=== PATIENT | male | born 1950 | race Caucasian/White ===

== ENCOUNTER 2021-11-22 09:37 | Emergency (ER) | payer MEDICARE, SELFPAY ==
[2021-11-22 09:41] VITALS: BP 163/82; PULSE 83; RESP 18; TEMP 36.5; O2SAT 97
--- NOTE | 2021-11-22 09:45 | DI.RAD_ITS ---
Exam(s) XR ANKLE RT COMPLETE EXAM: XR ANKLE RT COMPLETE CLINICAL HISTORY: Deformity, Fall TECHNIQUE: COMPARISON: No exams were available for comparison FINDINGS: Three views were obtained. There is a fracture of the distal fibula with moderate displacement. The re is marked widening of the ankle mortise medially. Questionable lucencies are projected through th e posterior tibia, posterior malleolar fracture not excluded. IMPRESSION: Fracture dislocation as described above with a displaced fracture of the distal fibula, distal tibial fracture not excluded. RADIATION DOSE DELIVERED: Total DLP
--- NOTE | 2021-11-22 09:48 | W.ED.GENAD ---
Discharge Plan Disposition Patient Disposition: [facility] DAY SURGERY UNIT Condition: Stable Discharge Details Clinical Impression: Closed fracture dislocation of right ankle Primary Care Provider: Unknown,Unknown ED Provider: Juana Sánchez Home Meds and New Rx's Prescriptions: No Action metformin 1,000 mg Tablet 1,000 mg PO BID RF: 0 Discharge Instructions Instructions: Ankle Fracture (ED), Splint Care (ED) Additional Instructions: Please follow-up with orthopedics within the next week as instructed. Keep your leg elevated, rest ice compression elevation. Do not place any weight on the splint. Do not get the splint wet. If you have any numbness tingling or cool toes you may loosen the Yonatan wrap but do not take the splint off. Please take Tylenol or Ibuprofen with food every 4-6 hours as needed for pain and swelling. Referrals: Sj Us MD [ [facility] STAFF PHYSICIAN] - 1 week Medical Decision Making 71-year-old male presents to the ER with chief complaint of right ankle injury. Patient reports he was walking downhill outside of his house this morning and slipped on the ice fell. He was able to crawl to his truck to pull himself into the truck and drive to his friend's house. He denies any loss of consciousness no neck or back pain. He did hit the back of his head mildly. He has no other complaint time. Does have obvious deformity noted to his right ankle and his foot is turned outward. Small abrasion noted to the medial malleolus. XR ankle, Percocet and Zofran ordered EXAM: XR ANKLE RT COMPLETE CLINICAL HISTORY: Deformity, Fall TECHNIQUE: COMPARISON: No exams were available for comparison FINDINGS: Three views were obtained. There is a fracture of the distal fibula with moderate displacement. There is marked widening of the ankle mortise medially. Questionable lucencies are projected through the posterior tibia, posterior malleolar fracture not excluded. IMPRESSION: Fracture dislocation as described above with a displaced fracture of the distal fibula, distal tibial fracture not excluded. 1013: Ortho paged. 1022: Spoke with Dr. Esdras Evangelista regarding patient he recommends reduction in the OR. He recommends Covid test. IV ordered. Discussed plan with patient who verbalizes understanding and is in agreement with the plan. He last ate last night around 7 PM. He did take his a.m. medications this morning but did not eat or drink anything. Instructed on NPO status. 1339: Spoke with Dr. Nguyen who is here at [facility] for Patient eval. He is willing to reduce ankle here at BS. 1400: Dr. Us and his physician sugar laboratory assistant at bedside for ankle reduction. Patient received 50 mcg of fentanyl IV tolerated procedure well. Posterior long leg and stirrup plaster splint applied. Post reduction x-ray ordered. 1424: Dr. Us ok's patient to be discharged. He was able to view the postreduction x-rays prior to discharge. He requests BMP and HA1C Prior to DC. BMP and hemoglobin A1c ordered. BMP within normal limits except for glucose 56 hemoglobin A1c is 9.4. Patient given crutches discharged with nonweightbearing status and instructions for RICE procedures. Instructed to take Tylenol or ibuprofen and follow-up with Ortho within the next week. Ortho contact information given. Splint care also discussed with patient. HPI General Mode of arrival: wheelchair. Date/Time Provider Initiated Documentation: 11/22/21 09:43. Limitations to Documentation: no limitations. Information obtained by: patient and RN notes reviewed. HPI Narrative: 71-year-old male presents to the ER with chief complaint of right ankle injury. Patient reports he was walking downhill outside of his house this morning and slipped on the ice fell. He was able to crawl to his truck to pull himself into the truck and drive to his friend's house. He denies any loss of consciousness no neck or back pain. He did hit the back of his head mildly. He has no other complaint time. Does have obvious deformity noted to his right ankle and his foot is turned outward. Small abrasion noted to the medial malleolus. Related Data Home Medications Medication Instructions Recorded Confirmed metformin 1,000 mg PO BID 11/22/21 11/22/21 Allergies Allergy/AdvReac Type Severity Reaction Status Date / Time No Known Allergies Allergy Unverified 11/22/21 09:50 General Stated Complaint: Orthopedic NIA: 3 Review of Systems All systems reviewed & are unremarkable except as noted in HPI and below ENT Ears, Nose, Mouth, and Throat: Denies neck pain Musculoskeletal Musculoskeletal: Reports deformity (Right ankle), Reports arthralgias, Reports joint swelling and Denies neck pain PFSH All Active Problems (Updated 11/22/21 @ 10:40 by Juana Sánchez) Closed fracture dislocation of right ankle (Acute) Social History Smoking/Tobacco Use Status: Never Smoking risk assessment performed?: Yes Alcohol Intake: never Drug use: Never Substance use type: does not use Do you feel safe at home: Yes Do you feel safe in your relationship?: Yes Exam Narrative Exam Narrative: General: Well Developed, Awake and Alert, conversant. Skin: Warm and Dry HEENT: Head: No palpable deformities, Normocephalic Eyes: Pupils PERRLA, EOM's intact. No periorbital eccymosis or step off Ears: Canal patent. Tympanic membranes are clear . No elizondo's sign, no hemptympanum. Nose/Face: Atraumatic. Facial bones nontender to palpation and stable with manipulation. Mouth/Throat: No intraoral trauma. Teeth and mandible are intact. Neck: No midline tenderness, no step off, no deformity to palpation of C-spine. Trachea midline. Chest: No surface trauma. Nontender without crepitus or deformity. Lungs clear to ausculatation bilaterally. Heart: RRR, no rubs, murmurs or gallop. Abdomen: No abrasions, ecchymosis, or surface trauma. Nondistended. Nontender to palpation no guarding, rebound, or rigidity. Pelvis: Nontender to palpation and stable to compression. Femoral pulses strong and equal Extremities: See below, obvious deformity noted to the right ankle, does have an abrasion noted to the medial malleolus, patient does have peripheral neuropathy and has decreased sensation. Neuro: ANO x4, GCS 15, cranial nerves II through XII intact. Motor and sensory exam nonfocal. Reflexes are symmetric. Extrem Right lower extremity: ankle Details: abnormal to inspection (Obvious deformity), tenderness and swelling Course Vital Signs Vital signs: Vital Signs Temperature 36.5 C 11/22/21 09:41 Pulse 83 11/22/21 09:41 Respiratory Rate 18 11/22/21 09:41 Blood Pressure 163/82 H 11/22/21 09:41 Pulse Oximetry 97 11/22/21 09:41 Temperature 36.5 C 11/22/21 09:41 Temperature Source Temporal Artery Scan 11/22/21 09:41 Pulse 83 11/22/21 09:41 Respiratory Rate 18 11/22/21 09:41 Blood Pressure 163/82 H 11/22/21 09:41 Blood Pressure Position Sitting 11/22/21 09:41 Pulse Oximetry 97 11/22/21 09:41 Oxygen Delivery Method Room Air 11/22/21 09:41 Oxygen Flow Rate 0 11/22/21 09:41 Pain Level 6 11/22/21 09:46 Procedures Orthopedic Splinting/Casting Injury #1: Side: right Lower Extremity Injury Location: ankle Lower Extremity Immobilizer: posterior splint (Long leg and stirrup plaster splint), stirrup splint, Raman dressing (Webroll applied) and Yonatan wrap
[2021-11-22] MEDS: Ondansetron O.D.T. 4 MG TABEF PO (10:05)
[2021-11-22] MEDS: oxyCODONE 5 mg/Acetaminophen 325 mg TAB 1 TAB PO (10:05)
[2021-11-22 10:33] LABS: Source Nasal/Nares
[2021-11-22 10:48] VITALS: BP 142/72; PULSE 73; RESP 16; TEMP 36.9; O2SAT 98
[2021-11-22 11:36] LABS: COVID-19 PCR Negative (Negative)
[2021-11-22] MEDS: Ibuprofen 800 MG TAB PO (13:01)
[2021-11-22] MEDS: fentaNYL 100 MCG/2 ML VIAL IVP (13:46)
--- NOTE | 2021-11-22 14:00 | DI.RAD_ITS ---
Exam(s) XR ANKLE RT 2V EXAM: XR ANKLE RT 2V CLINICAL HISTORY: post reduction, portable TECHNIQUE: COMPARISON: CR XR ANKLE RT COMPLETE from 11/22/2021 FINDINGS: Two views were obtained. The ankle is in a splint. There is improved reduction of the fracture frag ments of distal fibula in comparison with examination obtained earlier today. The degree of displace ment of the ankle mortise is also decreased. IMPRESSION: RADIATION DOSE DELIVERED: Total DLP
[2021-11-22 14:43] LABS: Anion Gap 9.5 mmol/L (3-11); BUN 14 mg/dL (7-18); CO2 24.5 mmol/L (21.0-32.0); CREATININE 0.9 mg/dL (0.70-1.30); Calcium 8.8 mg/dL (8.5-10.1); Chloride 106 mmol/L (98-107); Glucose 156 mg/dL (74-106); Potassium 4.5 mmol/L (3.5-5.1); Sodium 140 mmol/L (136-145)
[2021-11-22 14:48] LABS: Hemoglobin A1C 9.4 % (<5.7)
[2021-11-22 14:59] VITALS: BP 137/76; PULSE 69; RESP 18; TEMP 36.5; O2SAT 95
--- NOTE | 2021-11-22 22:33 | OCONE_ITS ---
Date of service: 11/22/21 Time of Service: 13:41 History of Present Illness History of Present Illness Chief Complaint: Right Ankle Pain/Deformity Narrative: Vikas is a 71-year-old who presented to the emergency department after a slip and fall this morning. He was walking outside when he slipped and twisted his right leg. He had immediate pain and deformity and was unable to stand on the right side but he was able to crawl and get himself into a truck. He drove to a friend's house who then brought into the emergency department. He does report hitting the back of his head but denies any loss of consciousness. He denies any confusion. He denies any severe headache although he does report a very mild headache to me. He reports having diabetes and does have baseline numbness of his feet. He does not follow with his primary doctor very often. . Consults Consult date: 11/22/21 Requesting physician: Juana Sánchez Consult Reason Right Ankle Fracture Assessment and Plan Assessment and plan (1) Closed fracture dislocation of right ankle: Status: Acute Assessment and plan: Vikas is a 71-year-old who slipped and fell the day suffered an ankle fracture dislocation. The primary lateral malleolus fracture with gapping of the medial clear space indicating a syndesmotic injury with obvious deltoid rupture. Close reduction was performed with much improved positioning. He will require surgical stabilization. I reviewed this with him. Given the unstable nature of this fracture pattern surgery would be recommended. However, I am quite concerned about his poor diabetes control. His current A1c is over 9 which would put him at higher risk for wound healing complications and infection. I will reach out to his primary care team to see about initiation of other oral agents at this time. He is now in a well-padded splint with a much better position of his ankle joint and therefore we will await surgical fixation once swelling has subsided, at least 5 days. I will coordinate with him for surgical stabilization. He should remain nonweightbearing on the right leg. Qualifiers: Encounter type: initial encounter Qualified Code(s): S82.891A - Other fracture of right lower leg, initial encounter for closed fracture Review of Systems All systems reviewed & are unremarkable except as noted in HPI and below PFSH All Active Problems (Updated 11/22/21 @ 22:49 by Sj Us MD) Closed fracture dislocation of right ankle (Acute) Social History Smoking/Tobacco Use Status: Never Smoking risk assessment performed?: Yes Alcohol Intake: never Drug use: Never Substance use type: does not use Do you feel safe at home: Yes Do you feel safe in your relationship?: Yes Exam Narrative Exam Narrative: He is comfortable in the hospital stretcher. Head is normocephalic and atraumatic. He is in no acute distress. He is alert and or iented x3. Evaluation of the right leg shows a external rotation and slight valgus deformity of the right foot. There is a mild abrasion of the medial aspect of the ankle but there is no active drainage. No open injury. There is notable swelling about the ankle and the foot. He is able demonstrate some weak great toe extension flexion. He reports gross sensation but actually does not respond to painful stimuli about the midfoot distal. And he responds mildly over the ankle itself. Sensation seems to be diminished from around the level of the mid calf distal. Faintly palpable DP pulse. Capillary refill less than 3 seconds in the toes. Results Last Vital Signs Temp 36.5 C 11/22/21 14:59 Pulse 69 11/22/21 14:59 Resp 18 11/22/21 14:59 BP 137/76 11/22/21 14:59 Pulse Ox 95 11/22/21 14:59 Labs Result diagrams: 11/22/21 14:28 Labs: Laboratory Results - last 24 hr 11/22/21 11/22/21 11/22/21 10:27 14:28 14:28 Sodium 140 Potassium 4.5 Chloride 106 Carbon Dioxide 24.5 Anion Gap 9.5 BUN 14 Creatinine 0.9 Estimated GFR/1.73 m2 >= 60.00 Glucose 156 H Hemoglobin A1c 9.4 H Calcium 8.8 COVID-19 Source Nasal/Nares SARS-CoV-2 (PCR) Negative Imaging Imaging Studies: X-ray of the right ankle demonstrates a fibula fracture with obvious lateral displacement of the talus with opening of the medial tibiotalar joint as well as the syndesmotic, tibiofibular joint. No apparent medial or posterior injury is seen on these films. X-ray of the right ankle after close reduction shows interval improvement of the position of the talus. There does appear to be some fragmentation in the medial aspect of the ankle but 1 able to see any clear medial malleolar or posterior malleolar fracture fragment. Ankle positioning is much closer to being anatomic at this point with a concentric reduction on the lateral and slight lateral displacement on the AP.
== END 2021-11-22 14:57 | disposition short-term general hospital (02) ==
PROVIDERS: Emergency Provider Registered Nurse Emergency
DX: S82.61XA Displaced fracture of lateral malleolus of right fibula, initial encounter for closed fracture (principal); W00.0XXA Fall on same level due to ice and snow, initial encounter
CPT/HCPCS: 27788; 80048; 87635; 99283; 73600; 73610; 83036; J3010

== ENCOUNTER 2021-11-26 14:41 | Outpatient (CLI) | payer MEDICARE, SELFPAY ==
--- NOTE | 2021-11-26 14:30 | DI.RAD_ITS ---
Exam(s) XR ANKLE RT 2V EXAM: XR ANKLE RT 2V CLINICAL HISTORY: f/u R ankle 0pain. TECHNIQUE: 2D digital imaging was performed. COMPARISON: No exams were available for comparison FINDINGS: Displaced fracture distal fibula-with significant widening of the mortise. No obvious fracture media l malleolus. Talar dome appears IMPRESSION: DATA REPOSITORY: RADIATION DOSE DELIVERED:
--- NOTE | 2021-11-26 15:00 | DI.RAD_ITS ---
Exam(s) XR ANKLE RT 2V EXAM: XR ANKLE RT 2V CLINICAL HISTORY: f/u reduction of right ankle. TECHNIQUE: 2D digital imaging was performed. COMPARISON: CR XR ANKLE RT 2V from 11/22/2021 FINDINGS: Fracture distal fibula again to also fracture. Medial malleolus is intact. There is significant wid ening of the mortise, more so than previous. Talar dome appears unremarkable. IMPRESSION: DATA REPOSITORY: RADIATION DOSE DELIVERED:
[2021-11-26 15:35] LABS: Source Nasal/Nares
[2021-11-26 19:57] LABS: COVID-19 PCR Negative (Negative)
== END 2021-11-26 14:42 | disposition home or self-care (01) ==
PROVIDERS: PCP Family Medicine; Referring Provider Student in an Organized Health Care Education/Training Program; Visit Provider Student in an Organized Health Care Education/Training Program
DX: S82.831A Other fracture of upper and lower end of right fibula, initial encounter for closed fracture (principal); Z20.822 Contact with and (suspected) exposure to COVID-19; X58.XXXA Exposure to other specified factors, initial encounter; E11.9 Type 2 diabetes mellitus without complications
CPT/HCPCS: 87635; 99214; 73600

== ENCOUNTER 2021-11-26 16:33 | Outpatient (REF) | payer MEDICARE, SELFPAY | END 2021-11-26 16:34 | disposition home or self-care (01) | LOC: LBN 16:33 | PROVIDERS: PCP Family Medicine; Visit Provider Student in an Organized Health Care Education/Training Program ==

== ENCOUNTER 2021-11-27 09:50 | Day surgery (SDC) | payer MEDICARE, SELFPAY ==
[2021-11-27] VITALS (12 sets, daily range): BP systolic 126–168; BP diastolic 67–89; PULSE 66–88; RESP 11–18; TEMP 36–36.8; O2SAT 94–98; BMI 33.7
--- NOTE | 2021-11-27 08:35 | W.ANESPRE ---
General Info Date of Service Date Performed: 11/27/21 Height: 6 ft 1 in Weight: 116 kg Body Mass Index (BMI): 33.7 Surgical Procedure: Operation Date: 11/27/21 12:40 Proposed Procedures Side Surgeon p External Fixation of Rt Ankle Fx-Dislocation Right Sj Us MD Meds Allergies and Home Medications Allergies Allergy/AdvReac Type Severity Reaction Status Date / Time No Known Allergies Allergy Unverified 11/26/21 14:00 Home Medication Medication Instructions Recorded metformin 1,000 mg PO BID 11/22/21 oxycodone-acetaminophen [Percocet] 1 tab PO TID PRN #10 tab 11/23/21 acetaminophen 500 mg tablet 500 mg PO Q6H PRN #90 tab 11/26/21 celecoxib 200 mg capsule 200 mg PO BID #60 cap 11/26/21 oxycodone 5 mg tablet 5 mg PO Q4H PRN #16 tab MDD 30mg 11/26/21 glipizide 10 mg PO DAILY 11/27/21 PFSH Active Problems Active Problems: Problem Status Onset Code Closed fracture dislocation of right ankle S82.891A Medical History Medical History (Updated 11/27/21 @ 10:49 by Oksana Maza) History of COVID-19 Hx of diabetes mellitus Surgical History Surgical History (Updated 11/27/21 @ 10:49 by Oksana Maza) Hx of eye surgery right eye trauma; blindness at present Hx of knee surgery left Hx of shoulder surgery left Tobacco Smoking/Tobacco Use Status: Never Alcohol Alcohol Intake: never Substance Use Substance use: Never Substance use type: does not use Vital Signs and Lab Results Lab Results Blood Type / Crossmatch: No Data to Display Complete Blood Count: No Data to Display Complete Metabolic Panel: Sodium Level 140 mmol/L (136-145) 11/22/21 14:28 11/22/21 Potassium Level 4.5 mmol/L (3.5-5.1) 11/22/21 14:28 11/22/21 Chloride Level 106 mmol/L (98-107) 11/22/21 14:28 11/22/21 Carbon Dioxide Level 24.5 mmol/L (21.0-32.0) 11/22/21 14:28 11/22/21 Blood Urea Nitrogen 14 mg/dL (7-18) 11/22/21 14:28 11/22/21 Creatinine 0.9 mg/dL (0.70-1.30) 11/22/21 14:28 11/22/21 Estimated GFR/1.73 m2 >= 60.00 (mL/min/1.73m2) 11/22/21 14:28 11/22/21 Calcium Level 8.8 mg/dL (8.5-10.1) 11/22/21 14:28 11/22/21 Glucose Level 156 mg/dL (74-106) H 11/22/21 14:28 11/22/21 Hemoglobin A1c 9.4 % (<5.7) H 11/22/21 14:28 11/22/21 Liver Function Panel: No Data to Display Coagulation Panel: No Data to Display Cardiac Panel: No Data to Display Arterial Blood Gas: No Data to Display Venous Blood Gas: No Data to Display Pancreas Panel: No Data to Display Thyroid Panel: No Data to Display Infectious Disease: Coronavirus (COVID-19)(PCR) Negative (Negative) 11/26/21 15:15 11/26/21 Coronavirus 2019 Source Nasal/Nares 11/26/21 15:15 11/26/21 Blood Cultures: No Data to Display Toxicology Panel: No Data to Display Anesthesia Assessment and Plan Anesthesia History Personal History: No History of Anesthesia Complications Family History: No Family History of Anesthesia Complications Exercise Tolerance Exercise Tolerance: Metabolic Equivalents>4 Pertinent Negatives Pertinent Negatives: No Symptoms of GERD, No Major Cardiovascular Symptoms or Complaints, No Major Pulmonary Symptoms or Complaints and No History of CVA/TIA Cardiac & Pulmonary Exam Cardiac Exam: Normal S1/S2 Heart Sounds Pulmonary Exam: Clear Bilateral Breath Sounds Implantable Cardiac Device Does patient have a Pacemaker or an ICD?: No Airway Exam Known Difficult Airway: No Mallampati Class: 3 Mouth Opening: Normal (> 3cm) Thyromental Distance: Greater than 3 cm Neck Range of Motion: Full ROM Neck Circumference: Normal Teeth Condition: Generalized Poor Dentition and Loose or Chipped ASA Classification ASA Score: ASA 3 Emergency Case?: No NPO Status NPO Status: NPO Clears >2 hours, Solids >8 hours Anesthesia Plan Resuscitation Status: Full Code Anesthesia Technique: Spinal Anesthesia Airway Planned: Natural Airway Pain Management: Surgeon and patient request nerve block (Adductor and popliteal) Monitors Used: Standard Monitors
--- NOTE | 2021-11-27 10:07 | W.PM.DSUDISC ---
Discharge Plan Disposition Patient Disposition: HOME Condition: Good Discharge Details Reason For Visit: right ankle fracture dislocation Attending Provider: Sj Us Primary Care Provider: Andre Howell Home Meds and New Rx's Prescriptions: No Action celecoxib 200 mg capsule 200 mg PO BID Qty: 60 RF: 0 oxycodone 5 mg tablet 5 mg PO Q4H MDD 30mg PRN (Reason: pain) Qty: 16 RF: 0 acetaminophen 500 mg tablet 500 mg PO Q6H PRN (Reason: fever) Qty: 90 RF: 0 metformin 1,000 mg Tablet 1,000 mg PO BID RF: 0 oxycodone-acetaminophen [Percocet] 5-325 mg tablet 1 tab PO TID PRN (Reason: pain, moderate) Qty: 10 RF: 0 Discharge Instructions Additional Instructions: Ankle ORIF Discharge Instructions Activity: You are NON WEIGHT BEARING. You should keep the leg elevated as much as possible. You may wiggle your toes and move your hip and knee. Dressings: You should keep your splint clean and dry. Do NOT get wet or dirty. If you have issues with your splint, please call the office at [phone] or the hospital after hours. Medications: - You should take Tylenol and Ibuprofen around the clock for baseline pain. - You have been prescribed a stronger narcotic for breakthrough pain. - You should take a Baby Aspirin (81mg) twice a day for blood clot prevention. Follow-up: 2 weeks Referrals: Sj Us MD [ [facility] STAFF PHYSICIAN] - Equipment/Supplies: Walker Activity:: Elevate Remove Dressings/Wound Care:: Do Not Remove Shower/Bathe:: Cover Diet:: As Tolerated Discharge Orders Discharge Orders: Discharge Order (Routine); Ordered 11/27/21 Ordered By: Johana Amaya DS: Diagnosis Discharge Diagnosis (1) Closed fracture dislocation of right ankle: Status: Acute
[2021-11-27] MEDS: Celecoxib 200 MG CAP 400 MG PO (10:27)
[2021-11-27] MEDS: Acetaminophen 500 MG TAB 1000 MG PO (10:27)
[2021-11-27] MEDS: Gabapentin 300 MG CAP PO (10:27)
[2021-11-27] MEDS: Lactated Ringers 1,000 ML 80 ML IV (10:35)
--- NOTE | 2021-11-27 11:15 | DI.RAD_ITS ---
Exam(s) XR ANKLE RT COMPLETE EXAM: XR ANKLE RT COMPLETE CLINICAL HISTORY: right ankle fracture TECHNIQUE: 2D and realtime digital imaging was performed. CONTRAST MATERIAL: Refer to procedure report. COMPARISON: CR XR ANKLE RT 2V from 11/26/2021 FINDINGS: Fluoroscopy was provided for Dr. Us during the performance of a external fixation of the right ankle fracture dislocation. Please refer to the procedure report for complete details. Ka,r=2.92 mGy IMPRESSION: RADIATION DOSE DELIVERED:
--- NOTE | 2021-11-27 11:37 | W.ANESNERVE ---
Nerve Block Single Injection Procedure Date and Time Date Performed: 11/27/21 Procedure Start: 11:02 Location Where Procedure Performed Procedure Location: Day Surgery Unit Reason Performed: Postoperative Analgesia Requesting Provider: Sj Us Timeout Performed Timeout Performed: Yes Monitoring Used ECG, Blood Pressure and SpO2 Sterility Sterility: Hand Hygiene, Surgical Cap, Surgical Mask, Sterile Gloves and Chlorhexidine Sedation Given During Procedure Sedation Given (Indicate Dose Given): No Sedation given and Ketamine IV Dose:: 20 mg Patient Mental Status Patient Mental Status: Sedate with meaningful communication Nerve Block 1st Nerve Block: Laterality: Right Block Type: Adductor Canal Needle / Catheter Used: 100mm SonoPlex II Local Anesthetic Bolus (Indicate Dose Given): Lidocaine used for local infiltration of skin, Injected in 3-5ml increments after negative blood aspiration, Bupivacaine 0.5% Dose:: 7 ml and Exparel Dose:: 7 ml Additives (Indicate Dose Given): Normal Saline Ultrasound: Sterile probe cover and gel used Ultrasound Image Saved?: Yes Nerve Stimulator: Not Used Paresthesia: None Procedure Tolerated: No Complications Procedure Outcome: Successful Performed By: Andre Amin 2nd Nerve Block: Laterality: Right Block Type: Popliteal Sciatic Needle / Catheter Used: 100mm SonoPlex II Local Anesthetic Bolus (Indicate Dose Given): Lidocaine used for local infiltration of skin, Injected in 3-5ml increments after negative blood aspiration, Bupivacaine 0.5% Dose:: 15 ml and Exparel Dose:: 13 ml Additives (Indicate Dose Given): None Ultrasound: Sterile probe cover and gel used Ultrasound Image Saved?: Yes Nerve Stimulator: Not Used Paresthesia: Right Paresthesia Duration: Transient Procedure Tolerated: No Complications and Patient tolerated well Procedure Outcome: Successful Performed By: Andre Amin
[2021-11-27] MEDS: ceFAZolin 2 GM/50 ML BAG IVPB (12:00)
[2021-11-27] MEDS: Bupivacaine 0.25% Pres-Free 30 ML VIAL (12:21)
--- NOTE | 2021-11-27 13:36 | W.PM.DSUDISC ---
Discharge Plan Disposition Patient Disposition: HOME Condition: Good Discharge Details Reason For Visit: right ankle fracture dislocation Attending Provider: Sj Us Primary Care Provider: Andre Howell Home Meds and New Rx's Prescriptions: New aspirin 81 mg tablet,delayed release (DR/EC) 81 mg PO BID Qty: 60 RF: 0 Continued celecoxib 200 mg capsule 200 mg PO BID Qty: 60 RF: 0 oxycodone 5 mg tablet 5 mg PO Q4H MDD 30mg PRN (Reason: pain) Qty: 16 RF: 0 acetaminophen 500 mg tablet 500 mg PO Q6H PRN (Reason: fever) Qty: 90 RF: 0 metformin 1,000 mg Tablet 1,000 mg PO BID RF: 0 oxycodone-acetaminophen [Percocet] 5-325 mg tablet 1 tab PO TID PRN (Reason: pain, moderate) Qty: 10 RF: 0 glipizide 10 mg tablet extended release 24hr 10 mg PO DAILY RF: 0 Discharge Instructions Additional Instructions: Ankle ORIF Discharge Instructions Activity: You are NON WEIGHT BEARING. You should keep the leg elevated as much as possible. You may wiggle your toes and move your hip and knee. You may rest the foot on the ground for balance but avoid putting weight on the leg. Use the walker to assist with your mobility. Dressings: You should keep your splint and dressing clean and dry. Do NOT get wet or dirty. If you have issues with your splint, please call the office at [phone] or the hospital after hours. No dressing changes are necessary. Medications: - You should take Tylenol and Ibuprofen around the clock for baseline pain. - You have been prescribed a stronger narcotic for breakthrough pain. - You should take a Baby Aspirin (81mg) twice a day for blood clot prevention. Follow-up: 10 days. Likely return to the OR in 2 weeks for definitive fixation. Referrals: Sj Us MD [ [facility] STAFF PHYSICIAN] - Equipment/Supplies: Walker Activity:: Elevate Remove Dressings/Wound Care:: Do Not Remove Shower/Bathe:: Cover Diet:: Carb Counting Discharge Orders Discharge Orders: Discharge Order (Routine); Ordered 11/27/21 Ordered By: Johana Amaya DS: Diagnosis Discharge Diagnosis (1) Closed fracture dislocation of right ankle: Status: Acute
--- NOTE | 2021-11-27 15:21 | W.ANESPOSTOP ---
Postoperative Evaluation Date, Time and Location Date Performed: 11/27/21 Time Performed: 15:21 Patient Location: Day Surgery Unit Vital Signs Most Recent Imported Vital Signs: Most Recent Vital Signs Temp Pulse Resp BP Pulse Ox 36 C L 66 16 128/77 96 11/27/21 14:45 11/27/21 14:45 11/27/21 14:45 11/27/21 14:45 11/27/21 14:45 Pain Score Most Recent Pain Score: Most Recent Pain Score Pain Level 0 11/27/21 14:45 Assessment Mental Status: Awake (Alert & Oriented to Patient Baseline) Airway and Respiratory Function: Patent airway with normal (patient baseline) respiratory exam Cardiovascular Function: Hemodynamically Stable Hydration Status: Adequately Hydrated Nausea & Vomiting: No Nausea or Vomiting Pain: Pt. Denies Any Pain Peripheral Nerve Block: Regional nerve block not resolved at time of post operative discharge
--- NOTE | 2021-11-27 22:24 | W.PM.OP ---
Date of service: 11/27/21 Time of Service: 13:37 Operative Note Operative Note DATE OF PROCEDURE: 11/27/21 PRE-OP DIAGNOSIS: Right Ankle Fracture Dislocation POST-OP DIAGNOSIS: same PROCEDURE: External Fixation of the Right Ankle Fracture-Dislocation SURGEON: Sj Us ASSISTING SURGEON: Johana Amaya ANESTHESIA TYPE: General LMA/ETT and Primary Nerve Block Refer to Anesthesia Record ESTIMATED BLOOD LOSS: 5 PATHOLOGY: none sent TOURNIQUET TIME: 0 COMPLICATIONS: None Patient was transported to: PACU Patient's condition: stable Implants: Synthes Large External Fixator Indications: Vikas is a 71-year-old who suffered an ankle fracture dislocation of his right side. He was closed reduced in the emergency department and splinted. Unfortunate, he showed up to the office after walking on the ankle with recurrent dislocation. He was reduced once again in the office but with slight pressure on the transfer to the x-ray table he once again subluxed his talus. He has severe diabetes with peripheral neuropathy and very minimal protective sensation therefore I recommended proceeding with external fixation of the right ankle fracture dislocation. I discussed this technique with him. This would be a stabilizing procedure to maintain reduction and allow the tissue envelope to settle before definitive fixation. I discussed the risk of the procedure to include bleeding, infection, pain, stiffness, loss of reduction, pin site infection, damage to nerves and vessels, blood clot, need for repeat procedures. Findings: There was a comminuted fracture of the distal fibula with significant instability. Reduction was obtained but increasingly difficult to maintain. Manipulation of the foot with the external fixator was required to hold reduction. Reduction was obtained and held with a delta frame. Procedure Description: Vikas was greeted the preoperative holding area. His identity was confirmed the correct site was identified and marked. The consent was reviewed the patient and signed. Peripheral nerve blockade was performed anesthesia under ultrasound guidance. He was then taken to the operating room. He was placed in supine position with the right leg on a bone foam ramp. The splint in the right leg was removed and there was notable thinning of the medial skin where the medial malleolus was prominent subcutaneously. There is no defect in the skin but there was an area of thinning with subjacent fracture blisters. Prophylactic antibiotics was administered in the form of cefazolin. The right leg was then prepped with ChloraPrep and draped in a standard fashion. A timeout was performed for safe surgery. I did reduction maneuver was performed and could be obtained while holding the foot. However, it was grossly unstable and would not stay without major manipulation of the foot and ankle. The skin was notably swollen without wrinkles and with various levels of ecchymosis. Attention was then turned to placement of the external fixator. Starting in the proximal tibia placed to Schanz pins from the external fixator system. The first pin was placed just medial to the crest of the tibia perpendicular to the floor predrilling the course of the pin. First pin was advanced into both cortices. Using the bracket as a guide I placed a second pin in a similar fashion. Once both pins were in place a lateral x-ray was obtained to make sure they are of appropriate depth penetrating past that second cortex for optimal fixation. With these in position I then attached the bracket to the 2 tibial pins. Attention was then turned to the calcaneus pin. A lateral x-ray was used to identify the appropriate position. A small incision was made in the skin blunt dissection was carried down to the border of the calcaneus. The calcaneal pin was then driven across on power through the calcaneus and out the other side, incising the skin on his way out. This was once again confirmed to be in good position both visually and with x-ray. I then placed 2 long external fixator bars on each side creating a delta frame type construct. These were manually tightened but still loose. A reduction maneuver was then performed and the bars were tightened. X-ray was obtained which showed significant improvement with reduction but still some slight lateral tilt and translation. Therefore, I minimally loosened the clamps and adjusted the external fixator for better AP alignment. This was then tightened and once again x-ray was utilized to confirm appropriate reduction. All junctions were tightened fully. All of the pins were capped with plastic protection devices. A mixture of 1.5% lidocaine with epinephrine with 0.25% bupivacaine was injected around the pin sites. Xeroform was placed around the pin sites as well as over the medial skin with a fracture blister. The pin sites were dressed with gauze followed by Kerlix. Web roll cotton padding was placed around the foot and the heel to prevent any pressure sores. A posterior slab splint was then applied keeping the foot in a neutral position. At the end the case all counts were correct. Vikas tolerated the procedure well. He was awakened from anesthesia and transferred to the PACU in stable condition. He will remain nonweightbearing on the right leg but may place on the ground for balance to prevent falling and to assist with mobilization throughout his home. I would like to see him back another 10 days for skin evaluation and likely proceeding with definitive fixation in 2 weeks.
== END 2021-11-27 16:30 | disposition home or self-care (01) ==
PROVIDERS: PCP Family Medicine; Visit Provider Student in an Organized Health Care Education/Training Program
PROC: (CPT 20690; principal; 2021-11-27 12:30)
DX: S82.61XA Displaced fracture of lateral malleolus of right fibula, initial encounter for closed fracture (principal); X58.XXXA Exposure to other specified factors, initial encounter; E11.42 Type 2 diabetes mellitus with diabetic polyneuropathy; Z79.84 Long term (current) use of oral hypoglycemic drugs
CPT/HCPCS: 20690; 27788; C1713; 20680; 76942; 73610; J0690; J1100; J2001; J2405

== ENCOUNTER 2021-12-09 16:00 | Inpatient (IN) | payer MEDICARE, SELFPAY ==
[2021-12-09] VITALS (22 sets, daily range): BP systolic 108–168; BP diastolic 57–102; PULSE 73–147; RESP 15–96; TEMP 36.3–39.2; O2SAT 83–98
--- NOTE | 2021-12-09 16:09 | W.ED.GENAD ---
Discharge Plan Disposition Patient Disposition: [facility] INPATIENT Condition: Stable Discharge Details Clinical Impression: Cellulitis of right ankle, Complication of external fixation device with internal components, Noncompliance, Fall at home, Generalized weakness, Hypoglycemia Admit Date/Time: 12/10/21 07:35 Admit Provider: Freddy Sanchez Attending Provider: Freddy Sanchez Primary Care Provider: Andre Aguilar ED Provider: Filomena Walton Discharge Data Discharge Date/Time-TO BE ENTERED AT DEPARTURE: 12/09/21 19:47 Medical Decision Making 1615 -- 71-year-old male with a history of poorly controlled diabetes status post external fixation of right ankle fracture dislocation on 11/[address] Us presents as a transfer from [facility] ED where he was earlier today for a complaint of generalized weakness and falls over the past few days with concern for loosening of hardware and infection at surgical site. He has been reportedly ambulating on his R leg despite recommendations to be non-weightbearing. [facility] note that patient had a lactate of 2.7, glucose of 68 and a temp 102. Patient is hemodynamically stable here with a blood pressure 131/61, heart rate 80s, temp of 98.8. He appears generally fatigued but nontoxic. His right ankle has external fixator in place with deformity of medial ankle and significant cellulitis with ulceration and pus drainage at the pin site on the medial heel in addition to an draining wound at the anteromedial ankle. His DP pulse is intact. Case discussed with orthopedics who recommend labs and right ankle and tib-fib x-rays. Recommend holding on antibiotics at this time as plan is for washout and cultures in the OR tomorrow. Labs and imaging reviewed. White blood cell count 11.4. Lactate 2.1. INR 1.3. Glucose 51. Covid negative. Xrays of ankle note: External fixation hardware is partially imaged.? There has been interval disruption of the ankle mortise with the distal tibia subluxed/dislocated medially in relation to the talus.? There is increased displacement and now foreshortening of the distal fibular fracture.? The proximal fracture fragment of the fibula appears to contact the talus.? There is quite prominent soft tissue swelling.? Xrays of tib/fib note: External fixation hardware is partially imaged. Portions of the fixation hardware traverse the mid to proximal tibia. Visualized portions of the hardware are without evidence of acute complication. Bones/joints: No acute fracture or dislocation. Soft tissues: Mild soft tissue swelling which could be postprocedural. 1739 -- X-rays reviewed with orthopedics. Recommend admission to hospitalist. Recommend continuing to hold on antibiotics at this time unless patient becomes septic or hemodynamically unstable. No plan for OR tonight so will feed pt and monitor glucose. Case discussed with hospitalist who accepts patient for admission. 1939 --patient given a diabetic tray and sugar 71. He was given additional juice and peanut butter and crackers and sugar remained 71. Patient has hemoglobin A1c 8.3 with potentially labile sugars. Suspect his hypoglycemia may be in the setting of infection or poor p.o. intake. Advised nursing to recheck sugar once on the floor and if need to provide supplemental glucose at that time. Medical Records Medical records reviewed: Yes I reviewed the patient's medical records. Imaging Data Radiologic Study: Radiologist's impression: XR Right Ankle Exam date and time: 12/09/2021 4:35 PM Age: 71 years old Clinical indication: Injury or trauma; Other: S/P ex fix, fall, R/O loosening of hardware; Fracture, traumatic; Ankle; Right; Not specified TECHNIQUE: Imaging protocol: XR Right ankle. Views: 3 or more views. COMPARISON: OT XR ANKLE RT COMPLETE 11/27/2021 12:54 PM FINDINGS: External fixation hardware is partially imaged.? There has been interval disruption of the ankle mortise with the distal tibia subluxed/dislocated medially in relation to the talus.? There is increased displacement and now foreshortening of the distal fibular fracture.? The proximal fracture fragment of the fibula appears to contact the talus.? There is quite prominent soft tissue swelling.? XR Right Tibia and Fibula Exam date and time: 12/09/2021 4:35 PM Age: 71 years old Clinical indication: Injury or trauma; Other: S/P ex fix, fall, R/O loosening of hardware; Fracture, traumatic; Fibula and tibia; Right TECHNIQUE: Imaging protocol: XR Right tibia and fibula. Views: 2 views. COMPARISON: CR XR ANKLE RT COMPLETE 12/09/2021 4:50 PM FINDINGS: Tubes, catheters and devices: External fixation hardware is partially imaged. Portions of the fixation hardware traverse the mid to proximal tibia. Visualized portions of the hardware are without evidence of acute complication. Bones/joints: No acute fracture or dislocation. Soft tissues: Mild soft tissue swelling which could be postprocedural. Lab Data Lab results reviewed: Yes I reviewed the patient's lab results. Labs: 12/09/21 17:15 Blood Blood Culture - Pending 12/09/21 17:07 Blood Blood Culture - Pending Laboratory Tests Range/Units 12/09/21 12/09/21 12/09/21 16:10 16:10 16:10 WBC (4.4-10.8) 10^3/uL 11.42 H RBC (4.36-5.78) 10^6/uL 3.62 L Hgb (13.5-17.5) g/dL 12.0 L Hct (40.0-50.0) % 36.6 L MCV (80-95) fL 101.1 H MCH (27.0-33.0) pg 33.1 H MCHC (32.0-36.0) % 32.8 RDW (11.8-14.1) % 12.6 Plt Count (130-400) 10^3/uL 205 MPV (8.0-11.0) fL 9.6 Immature Gran % 0.6 Neutrophils % 81.8 Lymphocytes % 8.7 Monocytes % 8.6 Eosinophils % 0.0 Basophils % 0.3 Nucleated RBC % % 0 Absolute Neutrophils (1.2-6.7) 10^3/uL 9.34 H Absolute Lymphocytes (1.2-3.4) 10^3/uL 0.99 L Absolute Monocytes (0.1-0.8) 10^3/uL 0.98 H Absolute Eosinophils (0.0-0.7) 10^3/uL 0.00 Absolute Basophils (0.0-0.2) 10^3/uL 0.03 PT (9.3-11.0) sec INR (0.9-1.1) VBG Lactate (0.6-1.4) mmol/L Sodium (136-145) mmol/L 137 Potassium (3.5-5.1) mmol/L 4.3 Chloride (98-107) mmol/L 102 Carbon Dioxide (21.0-32.0) mmol/L 26.0 Anion Gap (3-11) mmol/L 9.0 BUN (7-18) mg/dL 19 H Creatinine (0.70-1.30) mg/dL 1.0 Estimated GFR/1.73 m2 (mL/min/1.73m2) >= 60.00 Glucose (74-106) mg/dL 51 L Hemoglobin A1c (<5.7) % 8.3 H Calcium (8.5-10.1) mg/dL 8.5 Total Bilirubin (0.2-1.0) mg/dL 1.1 H AST (15-37) U/L 121 H ALT (16-63) U/L 44 Alkaline Phosphatase (46-116) U/L 75 Total Protein (6.4-8.2) g/dL 7.1 Albumin (3.4-5.0) g/dL 2.4 L COVID-19 Source SARS-CoV-2 (PCR) (Negative) Range/Units 12/09/21 12/09/21 12/09/21 16:10 16:20 17:05 WBC (4.4-10.8) 10^3/uL RBC (4.36-5.78) 10^6/uL Hgb (13.5-17.5) g/dL Hct (40.0-50.0) % MCV (80-95) fL MCH (27.0-33.0) pg MCHC (32.0-36.0) % RDW (11.8-14.1) % Plt Count (130-400) 10^3/uL MPV (8.0-11.0) fL Immature Gran % Neutrophils % Lymphocytes % Monocytes % Eosinophils % Basophils % Nucleated RBC % % Absolute Neutrophils (1.2-6.7) 10^3/uL Absolute Lymphocytes (1.2-3.4) 10^3/uL Absolute Monocytes (0.1-0.8) 10^3/uL Absolute Eosinophils (0.0-0.7) 10^3/uL Absolute Basophils (0.0-0.2) 10^3/uL PT (9.3-11.0) sec 13.1 H INR (0.9-1.1) 1.3 H VBG Lactate (0.6-1.4) mmol/L 2.1 H Sodium (136-145) mmol/L Potassium (3.5-5.1) mmol/L Chloride (98-107) mmol/L Carbon Dioxide (21.0-32.0) mmol/L Anion Gap (3-11) mmol/L BUN (7-18) mg/dL Creatinine (0.70-1.30) mg/dL Estimated GFR/1.73 m2 (mL/min/1.73m2) Glucose (74-106) mg/dL Hemoglobin A1c (<5.7) % Calcium (8.5-10.1) mg/dL Total Bilirubin (0.2-1.0) mg/dL AST (15-37) U/L ALT (16-63) U/L Alkaline Phosphatase (46-116) U/L Total Protein (6.4-8.2) g/dL Albumin (3.4-5.0) g/dL COVID-19 Source Nasal/Nares SARS-CoV-2 (PCR) (Negative) Negative ECG Data Attestation: I personally reviewed and interpreted this ECG (s) as follows: Interpretation: Rate of 76, sinus, normal axis. No STEMI. HPI General Mode of arrival: EMS. Date/Time Provider Initiated Documentation: 12/09/21 16:04. Limitations to Documentation: physical limitation. Information obtained by: patient. HPI Narrative: Patient is a 71-year-old male with a history of poorly controlled diabetes status post external fixation of right ankle fracture dislocation on 11/[address] Us presents as a transfer from [facility] ED where he was earlier today for a complaint of weakness and difficulty ambulating at home. Dr. Evnagelista called the ED informing us of patient's arrival as he is followed by orthopedics here. Patient is supposed to be nonweightbearing but he has reportedly been ambulating on his right leg. Per Dr. Evangelista's discussion with outside hospital, there was concern for loosening of his hardware and potential infection at the surgical site. Patient states that he has been using a walker and crutches but placing some weight on his right lower extremity since his surgery on November 27. He states he has been feeling generally weak for the past few days and has fallen a few times. He states his right lower extremity was dressed in bandages and he was unsure if he cause any further injury to the area and was unaware of any worsening pain, redness or drainage. He has chronic peripheral neuropathy to his lower extremities secondary to his diabetes. He states his diminished sensation is mostly in his toes. He denies any head injury, neck pain, back pain, chest pain, abdominal pain or any other extremity injury sustained due to the falls. He states he has been taking his regular medications as directed and has not checked his sugar for the past 3 days. He states he is unsure who called the ambulance today but thinks it may have been a friend who lives with him. Related Data Home Medications Medication Instructions Recorded Confirmed metformin 1,000 mg tablet 1,000 mg PO BID 11/22/21 12/09/21 acetaminophen 500 mg tablet 500 mg PO Q6H PRN #90 tab 11/26/21 12/09/21 celecoxib 200 mg capsule 200 mg PO BID #60 cap 11/26/21 12/09/21 aspirin 81 mg tablet,delayed 81 mg PO BID #60 tab 11/27/21 12/09/21 release glipizide 10 mg tablet, extended 10 mg PO DAILY 11/27/21 12/09/21 release 24 hr oxycodone-acetaminophen 5 mg-325 1 tab PO Q6H PRN #18 tab MDD 4 tabs 12/03/21 12/09/21 mg tablet (Percocet) Previous Rx's Medication Instructions Recorded acetaminophen 500 mg tablet 500 mg PO Q6H PRN #90 tab 11/26/21 celecoxib 200 mg capsule 200 mg PO BID #60 cap 11/26/21 aspirin 81 mg tablet,delayed 81 mg PO BID #60 tab 11/27/21 release oxycodone-acetaminophen 5 mg-325 1 tab PO Q6H PRN #18 tab MDD 4 tabs 12/03/21 mg tablet (Percocet) Allergies Allergy/AdvReac Type Severity Reaction Status Date / Time No Known Allergies Allergy Unverified 12/09/21 16:08 General Stated Complaint: Orthopedic NIA: 3 Review of Systems All systems reviewed & are unremarkable except as noted in HPI and below Constitutional Constitutional: Denies chills, Denies excessive sweating, Denies fatigue, Denies fever(s), Reports weakness and Denies weight loss Eyes Eyes: Reports system reviewed and no additional complaints, except as documented and Denies blurry vision ENT Ears, Nose, Mouth, and Throat: Denies vertigo, Denies dizziness, Denies otalgia, Denies nasal congestion, Denies sore throat and Denies throat swelling Cardiovascular Cardiovascular: Denies chest pain, Denies syncope, Denies rapid heart rate and Denies dyspnea Respiratory Respiratory: Denies chest congestion, Denies cough, Denies pain on inspiration and Denies dyspnea Gastrointestinal Gastrointestinal: Denies abdominal pain, Denies diarrhea and Denies vomiting Genitourinary Genitourinary: Denies hematuria, Denies dysuria and Denies flank pain Musculoskeletal Musculoskeletal: Denies back pain, Reports joint swelling and Reports other (R ankle pain) Integumentary/Breasts Skin/Breast: Denies lesions and Denies rash Neurologic Neurologic: Denies behavioral changes, Denies confusion, Denies vertigo, Denies dizziness, Denies syncope, Denies localized weakness and Reports weakness Psychiatric Psychiatric: Denies behavioral changes, Denies confusion and Denies depression Endocrine Endocrine: Denies excessive sweating and Denies fatigue Hematologic/Lymphatic Hematologic/Lymphatic: Denies easy bruising and Denies lymphadenopathy Allergic/Immunologic Allergic/Immunologic: Denies throat swelling PFSH All Active Problems (Updated 12/10/21 @ 10:28 by Luis Null) DVT prophylaxis (Acute) Discharge planning issues (Acute) Sepsis (Acute) Hypoglycemia (Acute) Cellulitis of right ankle (Acute) Complication of external fixation device with internal components (Acute) Noncompliance (Acute) Fall at home (Acute) Generalized weakness (Acute) Closed fracture dislocation of right ankle (Acute 11/22/21) Medical History History of COVID-19 Hx of diabetes mellitus Surgical History Hx of eye surgery right eye trauma; blindness at present Hx of knee surgery left Hx of shoulder surgery left Social History Smoking/Tobacco Use Status: Never Smoking risk assessment performed?: Yes Alcohol Intake: never Drug use: Never Substance use type: does not use Do you feel safe at home: Yes Do you feel safe in your relationship?: Yes Exam Const General: cooperative and ill appearing chronically Orientation: alert, awake and oriented x3 HENMT Head: normal to inspection Ears: hearing grossly normal bilaterally, external ears normal and TM's normal bilaterally General nose exam: external nose normal Face and sinus: normal facial exam Mouth: oral mucosae normal Teeth and gingiva: dentition normal Throat: posterior oropharynx normal Eyes General: appearance normal, both eyes and all related structures Eyelids: eyelids normal Pupils: PERRL EOM: EOM intact bilaterally Neck Neck: normal visual inspection Lymphatic: no lymphadenopathy noted Chest Chest: normal inspection of the chest Resp Effort & Inspection: normal respiratory effort and able to speak in complete sentences Auscultation: clear to auscultation bilaterally Cardio Rate: regular rate Rhythm: regular rhythm GI Inspection: normal to inspection Palpation: soft, not firm, no guarding, no hepatosplenomegaly, no masses and nontender Auscultation: normal bowel sounds Back/Spine/Pelvis Back: no CVA tenderness Cervical Spine: No cervical spinal tenderness Thoracic/Lumbar Spine: thoracic and lumbar spine normal to inspection, No thoracic spinal tenderness and No lumbar spinal tenderness Skin General skin exam: no rashes or lesions noted Neuro General: patient alert, patient awake, patient oriented x3 and no meningeal signs Cognition: normal cognition Speech: speech normal Extrem Other: RIGHT LOWER EXTREMITY: External fixator in place. He has surrounding edema and erythema of right ankle with deformity on medial aspect. There is sloughing of tissue, 1x2cm ulcer and yellowish pus drainage noted at the fixator site on the medial heel. There is also a 2 x 3 cm open wound at the anteromedial ankle with yellowish pus drainage. The lateral heel does not have any significant pus drainage at this time. The sites of the external fixator in the proximal tibia have mild erythema but no significant pus drainage or induration. Right DP pulse intact. He has diminished sensation throughout R ankle and foot, more prominent distally. Able to wiggle toes. Psych Appearance: grossly normal Mental Status: mental status grossly normal Speech and Movement: speech and movement normal Affect: normal affect Thought Process: normal Course Vital Signs Vital signs: Vital Signs Temperature 98.8 F 12/09/21 16:00 Pulse 84 12/09/21 16:00 Respiratory Rate 16 12/09/21 16:00 Blood Pressure 131/61 12/09/21 16:00 Pulse Oximetry 98 12/09/21 16:00 Temperature 98.8 F 12/09/21 16:00 Temperature Source Skin 12/09/21 16:00 Pulse 84 12/09/21 16:00 Respiratory Rate 16 12/09/21 16:00 Respiratory Effort 12/09/21 16:00 Blood Pressure 131/61 12/09/21 16:00 Blood Pressure Position Supine 12/09/21 16:00 Pulse Oximetry 98 12/09/21 16:00 Oxygen Delivery Method Room Air 12/09/21 16:00 Oxygen Flow Rate 0 12/09/21 16:00 Pain Level 6 12/09/21 16:00
[2021-12-09 16:28] LABS: Abs Immature Grans 0.07 10^3/uL (0.0-0.06); Absolute Basophil Count 0.03 10^3/uL (0.0-0.2); Absolute Lymphocyte Count 0.99 10^3/uL (1.2-3.4); Absolute Monocyte Count 0.98 10^3/uL (0.1-0.8); Basophils % 0.3; HCT 36.6 % (40.0-50.0); Immature Grans % 0.6; Lymphocytes % 8.7; MCH 33.1 pg (27.0-33.0); MCHC 32.8 % (32.0-36.0); MCV 101.1 fL (80-95); MPV 9.6 fL (8.0-11.0); Monocytes % 8.6; Neutrophils % 81.8; Nucleated RBC 0 %; Platelet Count 205 10^3/uL (130-400); RBC 3.62 10^6/uL (4.36-5.78); RDW 12.6 % (11.8-14.1); RDW-SD 47.7 fL; WBC 11.42 10^3/uL (4.4-10.8)
[2021-12-09 16:29] LABS: Absolute Neutrophil Count 9.34 10^3/uL (1.2-6.7)
--- NOTE | 2021-12-09 16:30 | DI.RAD_ITS ---
Exam(s) XR TIB/FIB RT EXAM: XR TIB/FIB RT CLINICAL HISTORY: s/p ex fix, fall, r/o loosening of hardware. TECHNIQUE: 2D digital imaging was performed. COMPARISON: Ankle images earlier same date FINDINGS: These images are of the right tibia and fibula exclusive of the ankle. There is an internal external fixation device. Secured proximally of the by 2 screws in the tibial diaphysis. Inferior aspect of the device is not in the field of view of this study. There is no obvious tibial plateau fracture. No fractures in the visualized mid-upper aspect of the fibula. IMPRESSION: DATA REPOSITORY: RADIATION DOSE DELIVERED:
--- NOTE | 2021-12-09 16:30 | DI.RAD_ITS ---
Exam(s) XR ANKLE RT COMPLETE EXAM: XR ANKLE RT COMPLETE CLINICAL HISTORY: s/p ex/fix, r/o loosening of hardware. TECHNIQUE: 2D digital imaging was performed. COMPARISON: CR XR ANKLE RT 2V from 11/26/2021 FINDINGS: There is displaced fracture of distal fibula and prominent widening of the ankle mortise. No obvious fracture of the medial malleolus. Talar dome unremarkable. IMPRESSION: Fracture dislocation as described above. DATA REPOSITORY: RADIATION DOSE DELIVERED:
[2021-12-09 16:39] LABS: INR 1.3 (0.9-1.1); Prothrombin Time 13.1 sec (9.3-11.0)
[2021-12-09 16:40] LABS: Source Nasal/Nares
[2021-12-09 16:44] LABS: ALT 44 U/L (16-63); AST 121 U/L (15-37); Albumin 2.4 g/dL (3.4-5.0); Alkaline Phosphatase 75 U/L (46-116); BUN 19 mg/dL (7-18); Bilirubin, Total 1.1 mg/dL (0.2-1.0); Calcium 8.5 mg/dL (8.5-10.1); Chloride 102 mmol/L (98-107); Glucose 51 mg/dL (74-106); Potassium 4.3 mmol/L (3.5-5.1); Sodium 137 mmol/L (136-145); Total Protein 7.1 g/dL (6.4-8.2)
[2021-12-09 16:50] LABS: Hemoglobin A1C 8.3 % (<5.7)
[2021-12-09] MEDS: ACETAMINOPHEN 1,000 MG/100 ML BTL 400 MG IVPB (16:58)
[2021-12-09] MEDS: Normal Saline 500 ML IV (16:58)
[2021-12-09 17:13] LABS: Lactate 2.1 mmol/L (0.6-1.4)
--- NOTE | 2021-12-09 17:16 | DI.VRAD_ITS ---
PROCEDURE INFORMATION: Exam: XR Right Tibia and Fibula Exam date and time: 12/09/2021 4:35 PM Age: 71 years old Clinical indication: Injury or trauma; Other: S/P ex fix, fall, R/O loosening of hardware; Fracture, traumatic; Fibula and tibia; Right TECHNIQUE: Imaging protocol: XR Right tibia and fibula. Views: 2 views. COMPARISON: CR XR ANKLE RT COMPLETE 12/09/2021 4:50 PM FINDINGS: Tubes, catheters and devices: External fixation hardware is partially imaged. Portions of the fixation hardware traverse the mid to proximal tibia. Visualized portions of the hardware are without evidence of acute complication. Bones/joints: No acute fracture or dislocation. Soft tissues: Mild soft tissue swelling which could be postprocedural. IMPRESSION: As above. Dictated and Authenticated by: Dann Orantes MD. Ordering:JANIS Butt MD
[2021-12-09 17:19] LABS: COVID-19 PCR Negative (Negative)
--- NOTE | 2021-12-09 17:20 | DI.VRAD_ITS ---
PROCEDURE INFORMATION: Exam: XR Right Ankle Exam date and time: 12/09/2021 4:35 PM Age: 71 years old Clinical indication: Injury or trauma; Other: S/P ex fix, fall, R/O loosening of hardware; Fracture, traumatic; Ankle; Right; Not specified TECHNIQUE: Imaging protocol: XR Right ankle. Views: 3 or more views. COMPARISON: OT XR ANKLE RT COMPLETE 11/27/2021 12:54 PM FINDINGS: External fixation hardware is partially imaged. There has been interval disruption of the ankle mortise with the distal tibia subluxed/dislocated medially in relation to the talus. There is increased displacement and now foreshortening of the distal fibular fracture. The proximal fracture fragment of the fibula appears to contact the talus. There is quite prominent soft tissue swelling. impression: As above. Dictated and Authenticated by: Dann Orantes MD. Ordering:JANIS Butt MD
--- NOTE | 2021-12-09 17:28 | NUR.NOTE ---
1650 patient noted to have blood glucose of 51 mg dL. Given 4 ounces of orange juice, MD ariza, tramei ordered and delivered to bedside. Pt denies S/S of hypoglycemia.
--- NOTE | 2021-12-09 18:00 | RT.EKG_ITS ---
APPROVED REPORT Exam: Resting ECG Reason for Exam: weakness Patient Location: E HR:76 bpm ECG Measurements Heart Rate 76 AXIS AL 181 P -37 QRSd 90 QRS -5 QT 396 T 2 QTc 446 Conclusion Sinus rhythm...normal P axis, V-rate 60- 99. Sinus. Normal axis. No STEMI. I have reviewed and interpreted ECG and agree with software generated interpretation.
--- NOTE | 2021-12-09 18:55 | HPE_ITS ---
Assessment and Plan Assessment and plan (1) Cellulitis of right ankle: Status: Acute Assessment and plan: At the advisement of the orthopedic surgeon no antibiotics will be started at this time. He had a discussion with Dr. Walton here in the emergency department. I will repeat his lactate level in a few hours and maintain his status is n.p.o. and given IV fluids. Blood cultures have been done. (2) Complication of external fixation device with internal components: Status: Acute Assessment and plan: Ankle fracture appears to be displaced at this time. This will be repaired at the time of surgery tomorrow. (3) Noncompliance: Status: Acute (4) Fall at home: Status: Acute Assessment and plan: He did not seem to have much support at home for his care. He says that when he fell most recently he was down on the ground for 3 to 4 hours according to his estimation. History of Present Illness History of Present Illness Chief Complaint: painful right ankle Narrative: This 71-year-old male is here because of a fracture of his ankle. He initially fractured his ankle on November 22. He came back to the hospital on November 27 and had an external fixation device applied. He was discharged home. He says he lives by himself but has had help from his ex- who has been in and out to help him. He says that he has been very weak at home and he has fallen at least twice since November 27. He thinks he fell a couple days ago and was on the ground for few hours before he could get up. He thinks he had a fever a day or 2 ago that because he has an appointment coming up for recheck tomorrow he did not call in to be seen sooner. He was taken 2 [facility] in [facility] and had a evaluation there and was sent here for further evaluation. The orthopedic service received a call from [facility] and recommended to be seen in this emergency department. Orthopedics was consulted here and it was recommended that he be admitted to the hospital service and that no antibiotics being given for his foot and ankle infection. He was found to have a mildly elevated white cell count and an elevated lactate level. He had received some intravenous fluids here. He does have diabetes mellitus and does not have much feeling in his foot. He says that he has had 2 Covid shots but has not received a booster yet. He has not been around anyone else has been sick. He wonders now whether he should have gone to rehab instead of home following his fixation surgery. He says that his son had to come and cut through some of the door casing that he can get to the bathroom in his home. Review of Systems Constitutional Constitutional: Denies chills, Reports fever(s), Reports frequent falls and Reports weakness Cardiovascular Cardiovascular: Denies chest pain, Denies rapid heart rate, Denies dyspnea and Denies orthopnea Respiratory Respiratory: Denies cough, Denies dyspnea, Denies stridor and Denies wheezing Gastrointestinal Gastrointestinal: Denies abdominal pain, Denies heartburn, Denies diarrhea, Denies nausea and Denies vomiting Genitourinary Genitourinary: Denies hematuria, Denies dysuria, Denies urinary frequency and Denies urinary incontinence Musculoskeletal Musculoskeletal: Reports numbness Comments: He has numbness in his feet chronically bilaterally. He has had some drainage around the ankle where the surgery was performed. He has pain in his right ankle and lower leg. Neurologic Neurologic: Reports frequent falls, Reports numbness and Reports weakness Endocrine Comments: His blood sugars have ranged from 100-200 at home. His A1c is 8.3% Allergic/Immunologic Allergic/Immunologic: Denies wheezing PFSH All Active Problems (Updated 12/09/21 @ 18:26 by Filomena Walton DO) Cellulitis of right ankle (Acute) Complication of external fixation device with internal components (Acute) Noncompliance (Acute) Fall at home (Acute) Generalized weakness (Acute) Closed fracture dislocation of right ankle (Acute 11/22/21) Medical History (Updated 12/09/21 @ 18:26 by Filomena Walton DO) History of COVID-19 Hx of diabetes mellitus Surgical History (Updated 11/27/21 @ 10:49 by Oksana Maza) Hx of eye surgery right eye trauma; blindness at present Hx of knee surgery left Hx of shoulder surgery left Social History Smoking/Tobacco Use Status: Never Smoking risk assessment performed?: Yes Alcohol Intake: never Drug use: Never Substance use type: does not use Do you feel safe at home: Yes Do you feel safe in your relationship?: Yes Meds Allergies and Home Medications Allergies Allergy/AdvReac Type Severity Reaction Status Date / Time No Known Allergies Allergy Unverified 12/09/21 16:08 Home Medications Medication Instructions Recorded Confirmed Type metformin 1,000 mg tablet 1,000 mg PO BID 11/22/21 12/09/21 History acetaminophen 500 mg tablet 500 mg PO Q6H PRN #90 tab 11/26/21 12/09/21 Rx celecoxib 200 mg capsule 200 mg PO BID #60 cap 11/26/21 12/09/21 Rx aspirin 81 mg tablet,delayed 81 mg PO BID #60 tab 11/27/21 12/09/21 Rx release glipizide 10 mg tablet, extended 10 mg PO DAILY 11/27/21 12/09/21 History release 24 hr oxycodone-acetaminophen 5 mg-325 1 tab PO Q6H PRN #18 tab MDD 4 tabs 12/03/21 12/09/21 Rx mg tablet (Percocet) Exam Const General: cooperative, no acute distress, disheveled, ill appearing, does not appear intoxicated and not lethargic Orientation: alert, awake and oriented x3 Neck Neck: normal visual inspection and no lymphadenopathy Thyroid: thyroid normal Resp Auscultation: clear to auscultation bilaterally, no rales and no rhonchi Cardio Jugular venous pressure: no JVD Rate: regular rate Rhythm: regular rhythm Heart Sounds: S1 normal, S2 normal, no gallops and no murmurs GI Inspection: normal to inspection Palpation: soft, no hepatosplenomegaly and nontender Extrem Other: He has an external fixation device of his right lower leg and both sides of the ankle. There is a erythema over the ankle area and proximal foot. There is some drainage from the sites of the external fixation device at the foot and ankle. There is no ascending lymphangitis that I can see. The tibial sites where the external fixation device is attached appear normal. There is no calf tenderness. There is decreased sensation to both feet. Both feet are warm. Results Labs Result diagrams: 12/09/21 16:10 12/09/21 16:10 Labs: Laboratory Results - last 24 hr 12/09/21 12/09/21 12/09/21 16:10 16:10 16:10 WBC 11.42 H RBC 3.62 L Hgb 12.0 L Hct 36.6 L MCV 101.1 H MCH 33.1 H MCHC 32.8 RDW 12.6 Plt Count 205 MPV 9.6 Immature Gran % 0.6 Neutrophils % 81.8 Lymphocytes % 8.7 Monocytes % 8.6 Eosinophils % 0.0 Basophils % 0.3 Nucleated RBC % 0 Absolute Neutrophils 9.34 H Absolute Lymphocytes 0.99 L Absolute Monocytes 0.98 H Absolute Eosinophils 0.00 Absolute Basophils 0.03 PT INR VBG Lactate Sodium 137 Potassium 4.3 Chloride 102 Carbon Dioxide 26.0 Anion Gap 9.0 BUN 19 H Creatinine 1.0 Estimated GFR/1.73 m2 >= 60.00 Glucose 51 L Hemoglobin A1c 8.3 H Calcium 8.5 Total Bilirubin 1.1 H AST 121 H ALT 44 Alkaline Phosphatase 75 Total Protein 7.1 Albumin 2.4 L COVID-19 Source SARS-CoV-2 (PCR) 12/09/21 12/09/21 12/09/21 16:10 16:20 17:05 WBC RBC Hgb Hct MCV MCH MCHC RDW Plt Count MPV Immature Gran % Neutrophils % Lymphocytes % Monocytes % Eosinophils % Basophils % Nucleated RBC % Absolute Neutrophils Absolute Lymphocytes Absolute Monocytes Absolute Eosinophils Absolute Basophils PT 13.1 H INR 1.3 H VBG Lactate 2.1 H Sodium Potassium Chloride Carbon Dioxide Anion Gap BUN Creatinine Estimated GFR/1.73 m2 Glucose Hemoglobin A1c Calcium Total Bilirubin AST ALT Alkaline Phosphatase Total Protein Albumin COVID-19 Source Nasal/Nares SARS-CoV-2 (PCR) Negative Last Vital Signs Temp 37.1 C 12/09/21 16:00 Pulse 82 12/09/21 18:01 Resp 21 12/09/21 18:01 BP 110/57 L 12/09/21 18:01 Pulse Ox 98 12/09/21 17:40
[2021-12-09] MEDS: Lactated Ringers 1,000 ML 125 ML IV (19:10)
[2021-12-09] MEDS: MORPHine 4 MG/ML SYR IVP (21:11)
[2021-12-09] MEDS: Dextrose 50%-Water 25 GM/50 ML SYR (21:26)
--- NOTE | 2021-12-09 21:45 | DI.RAD_ITS ---
Exam(s) XR PORTABLE CHEST AP EXAM: XR PORTABLE CHEST AP CLINICAL HISTORY: DECREASE SAT, cough, hypoxia. TECHNIQUE: 2D digital imaging was performed. COMPARISON: No exams were available for comparison FINDINGS: Heart size is upper normal. The mediastinum is not widened. Subtle suggestion of mild infiltrates in the posterior basal segment of the right lower lobe. Also m ild increased markings in the left lower lobe retrocardiac region. No pleural effusions. Healed midshaft fracture of the right clavicle IMPRESSION: Subtle bibasilar infiltrates.No obvious pleural effusions DATA REPOSITORY: RADIATION DOSE DELIVERED: All CT scans at this facility use at least one of these dose optimization techniques: automated exposure control; mA and/or kV adjustment per patient size (includes targeted e xams where dose is matched to clinical indication); or iterative reconstruction.
[2021-12-09] MEDS: DEXTROSE 5%-LACTATED RINGERS 1,000 ML 125 ML IV (21:50)
[2021-12-09 22:13] LABS: Lactate 4.7 mmol/L (0.6-1.4)
[2021-12-09] MEDS: Acetaminophen 325 MG TAB 650 MG PO (22:34)
--- NOTE | 2021-12-09 22:38 | DI.VRAD_ITS ---
PROCEDURE INFORMATION: Exam: XR Chest Exam date and time: 12/09/2021 9:58 PM Age: 71 years old Clinical indication: Cough and other: Hypoxia, decreased sat; Patient HX: Hypoxia, decreased sat, cough TECHNIQUE: Imaging protocol: XR of the chest. Views: 1 view. COMPARISON: No relevant prior studies available. FINDINGS: Tubes, catheters and devices: Monitoring wires noted. Lungs: Lung volumes are low. Patchy airspace opacity noted in the lung bases. Pleural spaces: Unremarkable. No pleural effusion. No pneumothorax. Heart/Mediastinum: Unremarkable. No cardiomegaly. Bones/joints: Old healed fracture noted in the right clavicle with deformity. IMPRESSION: Mild patchy infiltrates and/or edema. Dictated and Authenticated by: Mikhail Maldonado MD. Ordering:WINIFRED Hayes MD
[2021-12-09 22:50] LABS: D-Dimer > 7500 ng/mlFEU (<500)
[2021-12-09] MEDS: Ketorolac 30 MG/ML VIAL IVP (23:45)
[2021-12-10] VITALS (113 sets, daily range): BP systolic 82–155; BP diastolic 45–100; PULSE 61–109; RESP 14–35; TEMP 36.1–41.3; TEMPC 36.1; O2SAT 89–100; BMI 34.0
--- NOTE | 2021-12-10 | DI.CT_ITS ---
Exam(s) CT CHEST PE CTA EXAM: CT CHEST PE CTA CLINICAL HISTORY: hypoxia, dyspnea, elevated d dimer.. TECHNIQUE: Imaging Protocol: CT angiography of the chest was performed using pulmonary embolus reza col. Multi planar reconstructions were performed. CONTRAST MATERIAL: Intravenous: Omnipaque 350 Contrast volume: 100 cc COMPARISON: No exams were available for comparison FINDINGS: CHEST: PULMONARY ARTERIES: Less than optimal bolus opacification of the distal pulmonary arteries. However, there are no emboli evident in the central and 2nd/3rd order vessels. LUNGS: No evidence of a infarct. No pleural effusions. Mild increased markings are noted in the pos terior aspect of both lower lobes. No pneumothorax.. Scratch MEDIASTINUM: There is no hilar nor mediastinal adenopathy. CARDIAC: Heart size is upper normal. There is no pericardial effusion.Caliber of the thoracic aorta is within normal limits. Moderate coronary artery calcifications noted. There is no significant shif t of the interventricular septum. PARTIALLY VISUALIZED UPPERMOST ABDOMEN: No contrast reflux evident into the intrahepatic IVC. Liver appears cirrhotic. No obvious ascites OSSEOUS: No significant osseous lesions.. IMPRESSION: 1. Less than optimal opacification of distal pulmonary arteries..However, there are no obvious acute pulmonary emboli in central and segmental vessels. No evidence pulmonary infarct. Pleural effusions . 2. Mild increased markings both lung bases. No adenopathy. 3. No evidence of aortic dissection. No pericardial effusion. Coronary artery calcification noted RADIATION DOSE DELIVERED: 501.38mGy.cm Total DLP DATA REPOSITORY: All CT scans at this facility are submitted to the National Radiology Data Registry (NRDR) Dose Index Registry (DIR) with the [employer] (ACR). RADIATION OPTIMIZATION: All CT scans at this facility use at least one of these dose optimization te chniques: automated exposure control; mA and/or kV adjustment per patient size (includes targeted exa ms where dose is matched to clinical indication); or iterative reconstruction.
[2021-12-10] MEDS: Normal Saline 500 ML IV ×2 (00:07→04:15)
[2021-12-10] MEDS: PIPERACILLIN/TAZO 4.5 GM in Normal Saline 100 ML IVPB ×4 (00:49→18:48)
[2021-12-10 00:57] LABS: Lactate 3.3 mmol/L (0.6-1.4)
[2021-12-10 01:02] LABS: Anion Gap 11.6 mmol/L (3-11); BUN 24 mg/dL (7-18); CO2 21.4 mmol/L (21.0-32.0); CREATININE 1.1 mg/dL (0.70-1.30); Calcium 8.2 mg/dL (8.5-10.1); Chloride 102 mmol/L (98-107); Glucose 110 mg/dL (74-106); Magnesium 1.5 mg/dL (1.8-2.4); Potassium 4.1 mmol/L (3.5-5.1); Sodium 135 mmol/L (136-145)
[2021-12-10] MEDS: VANCOMYCIN 1,250 MG in Normal Saline 250 ML 166.6666 MG IVPB (01:29)
[2021-12-10] MEDS: Omnipaque 350 MG/ML 100 ML BTL IJ (03:04)
[2021-12-10] MEDS: Normal Saline Flush 10 ML SYR IVP (03:35)
--- NOTE | 2021-12-10 03:59 | DI.VRAD_ITS ---
PROCEDURE INFORMATION: Exam: CTA Chest With Contrast Exam date and time: 12/10/2021 2:17 AM Age: 71 years old Clinical indication: Abnormal findings; Abnormal diagnostic tests; Elevated d-dimer; Dyspnea and other: Hypoxia; Patient HX: Hypoxia, dyspnea, elevated d dimer; Additional info: Recent surgery ( R ankle with external fixation device) TECHNIQUE: Imaging protocol: Computed tomographic angiography of the chest with contrast. 3D rendering (Not supervised by radiologist): MIP and/or 3D reconstructed images were created by the technologist. Radiation optimization: All CT scans at this facility use at least one of these dose optimization techniques: automated exposure control; mA and/or kV adjustment per patient size (includes targeted exams where dose is matched to clinical indication); or iterative reconstruction. Contrast material: OMNIPAQUE 350; Contrast volume: 100 ml; Contrast route: INTRAVENOUS (IV); COMPARISON: XR PORTABLE CHEST AP 12/09/2021 10:01 PM FINDINGS: Pulmonary arteries: No pulmonary emboli. Aorta: No aortic aneurysm. No aortic dissection. Lungs: Mild subsegmental atelectasis No consolidation. No masses. Pleural spaces: No pneumothorax. No pleural effusion. Heart: Mild cardiomegaly. Coronary calcifications No pericardial effusion. Lymph nodes: Unremarkable. No enlarged lymph nodes. Bones/joints: Unremarkable. No acute fracture. Soft tissues: Unremarkable. Cirrhosis. Extensive perisplenic collateral vessels. Spleen is mildly enlarged IMPRESSION: No pulmonary emboli detected Mild cardiomegaly and coronary artery disease Mild subsegmental atelectasis Cirrhosis and portal hypertension Dictated and Authenticated by: Bladimir Hamilton MD. Ordering:WINIFRED Hayes MD
[2021-12-10] MEDS: MAGNESIUM SULFATE 1 GM/100 ML BAG IVPB (04:35)
--- NOTE | 2021-12-10 05:21 | NUR.NOTE ---
Nursing Note: Patient was taken for CTA at 03:05 and returned back to unit by 03:35.
[2021-12-10] MEDS: Lactated Ringers 1,000 ML 125 ML IV ×2 (06:00→16:28)
[2021-12-10 06:46] LABS: Lactate 2.8 mmol/L (0.6-1.4)
[2021-12-10 06:50] LABS: Abs Immature Grans 0.04 10^3/uL (0.0-0.06); HCT 33.5 % (40.0-50.0); MCH 33.2 pg (27.0-33.0); MCHC 32.8 % (32.0-36.0); MCV 101.2 fL (80-95); MPV 9.7 fL (8.0-11.0); Nucleated RBC 0 %; Platelet Count 157 10^3/uL (130-400); RBC 3.31 10^6/uL (4.36-5.78); RDW 12.9 % (11.8-14.1); RDW-SD 48.5 fL; WBC 10.57 10^3/uL (4.4-10.8)
[2021-12-10 06:55] LABS: ESR 44 mm/hr (0-20)
--- NOTE | 2021-12-10 07:00 | W.ORTHOCONSU ---
Date of service: 12/10/21 Time of Service: 07:00 History of Present Illness History of Present Illness Chief Complaint: Right leg ankle deformity pain infection Narrative: Patient somewhat poor historian. Describes right ankle fracture dislocation. Unable to be treated closed due to noncompliance. Placed into external fixator with also issues with noncompliance weightbearing and multiple falls. Ended up at outside hospital over the weekend with concerns for redisplacement laterally of fracture dislocation and wounds about ankle and external fixator pin sites. Transferred to [facility] and now the ICU for medical management. Possible sepsis. Consult Reason Right ankle external fixator failure and infection Assessment and Plan Assessment and plan (1) Closed fracture dislocation of right ankle: Status: Acute Assessment and plan: 71 year old male with Right ankle fracture dislocation Challenging situation. Patient walking and falling on injury despite attempts to keep him non-weightbearing. Lacks protective sensation due to diabetic neuropathy. Failed closed treatment. Failing external fixation. Plan for revision ex-fix todaywith I&D and possible staged internal fixation if/when soft tissues allow. Continue medical optimization for surgery. Recommend nutrition consult. Strict elevation Right leg & ankle. N.p.o. and IV fluids. Antibiotics administered overnight due to clinical decompensation. ESR CRP ordered. Will d/w hospitalist and Dr. Us Qualifiers: Encounter type: initial encounter Qualified Code(s): S82.891A - Other fracture of right lower leg, initial encounter for closed fracture Review of Systems Narrative: As per HPI, otherwise negative PFSH All Active Problems Hypoglycemia (Acute) Cellulitis of right ankle (Acute) Complication of external fixation device with internal components (Acute) Noncompliance (Acute) Fall at home (Acute) Generalized weakness (Acute) Closed fracture dislocation of right ankle (Acute 11/22/21) Medical History History of COVID-19 Hx of diabetes mellitus Surgical History Hx of eye surgery right eye trauma; blindness at present Hx of knee surgery left Hx of shoulder surgery left Social History Smoking/Tobacco Use Status: Never Smoking risk assessment performed?: Yes Alcohol Intake: never Drug use: Never Substance use type: does not use Do you feel safe at home: Yes Do you feel safe in your relationship?: Yes Exam Narrative Exam Narrative: Right leg and ankle with obvious lateral deformity. Prominence medially with skin breaking down. Appears subacute in nature. Purulence about calcaneus pin sites. Tibial pin sites relatively okay. Minimal sensation at baseline about foot and ankle. Difficult for entry of true cellulitis versus inflammatory changes venous stasis dry skin. Results Last Vital Signs Temp 98.8 F 12/09/21 16:00 Pulse 86 12/09/21 16:31 Resp 22 12/09/21 17:30 BP 135/71 12/09/21 16:31 Pulse Ox 98 12/09/21 17:30 Labs Result diagrams: 12/10/21 06:35 12/10/21 06:35 Labs: Laboratory Results - last 24 hr 12/09/21 12/09/21 12/09/21 16:10 16:10 16:10 WBC 11.42 H RBC 3.62 L Hgb 12.0 L Hct 36.6 L MCV 101.1 H MCH 33.1 H MCHC 32.8 RDW 12.6 Plt Count 205 MPV 9.6 Immature Gran % 0.6 Neutrophils % 81.8 Lymphocytes % 8.7 Monocytes % 8.6 Eosinophils % 0.0 Basophils % 0.3 Nucleated RBC % 0 Absolute Neutrophils 9.34 H Absolute Lymphocytes 0.99 L Absolute Monocytes 0.98 H Absolute Eosinophils 0.00 Absolute Basophils 0.03 PT INR VBG Lactate Sodium 137 Potassium 4.3 Chloride 102 Carbon Dioxide 26.0 Anion Gap 9.0 BUN 19 H Creatinine 1.0 Estimated GFR/1.73 m2 >= 60.00 Glucose 51 L Hemoglobin A1c 8.3 H Calcium 8.5 Total Bilirubin 1.1 H AST 121 H ALT 44 Alkaline Phosphatase 75 Total Protein 7.1 Albumin 2.4 L COVID-19 Source SARS-CoV-2 (PCR) 12/09/21 12/09/21 12/09/21 16:10 16:20 17:05 WBC RBC Hgb Hct MCV MCH MCHC RDW Plt Count MPV Immature Gran % Neutrophils % Lymphocytes % Monocytes % Eosinophils % Basophils % Nucleated RBC % Absolute Neutrophils Absolute Lymphocytes Absolute Monocytes Absolute Eosinophils Absolute Basophils PT 13.1 H INR 1.3 H VBG Lactate 2.1 H Sodium Potassium Chloride Carbon Dioxide Anion Gap BUN Creatinine Estimated GFR/1.73 m2 Glucose Hemoglobin A1c Calcium Total Bilirubin AST ALT Alkaline Phosphatase Total Protein Albumin COVID-19 Source Nasal/Nares SARS-CoV-2 (PCR) Negative
[2021-12-10 07:10] LABS: Anion Gap 10.8 mmol/L (3-11); BUN 25 mg/dL (7-18); C-Reactive Protein 15.77 mg/dL (0.0-0.3); CO2 21.2 mmol/L (21.0-32.0); CREATININE 1.4 mg/dL (0.70-1.30); Calcium 8.3 mg/dL (8.5-10.1); Chloride 103 mmol/L (98-107); Glucose 213 mg/dL (74-106); Potassium 4.5 mmol/L (3.5-5.1); Sodium 135 mmol/L (136-145)
[2021-12-10 07:20] LABS: Absolute Lymphocyte Count 0.53 10^3/uL (1.2-3.4); Absolute Neutrophil Count 9.51 10^3/uL (1.2-6.7); Bands % 8
[2021-12-10 07:21] LABS: Absolute Monocyte Count 0.32 10^3/uL (0.1-0.8); Diff Comment Manual Differential; Metamyelocytes % 2; RBC Morphology Normal
--- NOTE | 2021-12-10 08:55 | PDOC.CMIN ---
- If Service Date Differs Date of service: 12/10/21 Time of Service: 08:55 Care Management Initial Assess REASON FOR HOSPITALIZATION:: Weakness, Right Ankle Cellulitis, S/P Ex-fix Right Ankle fracture. PAST MEDICAL HISTORY/PAST SURGICAL HISTORY:: All Active Problems: Cellulitis of right ankle (Acute), Complication of external fixation device with internal components (Acute), Noncompliance (Acute), Fall at home (Acute), Generalized weakness (Acute), and Closed fracture dislocation of right ankle (Acute 11/22/21). Medical History: History of COVID-19 and Hx of diabetes mellitus. Surgical History: Hx of eye surgery - right eye trauma; blindness at present, Hx of knee surgery - left, and Hx of shoulder surgery - left. PREVIOUS FUNCTIONAL STATUS/SOCIAL/FAMILY SUPPORTS:: Vikas is a 71-year-old man who lives alone in [place], [place]. He has an ex- and adult son who reside locally and provide support when needed. He additionally has a daughter and two young grandsons who live in [place], [place], but says he only sees them when he goes to [place] to visit. Vikas is retired but formerly worked 18 years at [employer]. He now occupies his time with visiting family, tinkering on his car, and puttering around the house. CURRENT FUNCTIONAL STATUS:: Vikas is laying in bed watching television when comes to meet with him. He is pleasant and easily engages in conversation. He talks about his struggles in caring for himself at home since fracturing his ankle. He shares his ex- was staying at his house to help care for him but she has depression issues and ran out of her medications, so she was unable to be much help due to dealing with her own issues. ADVANCE DIRECTIVES:: None on file; Vikas accepts Advance Directives from for completion at a later time. Has patient been provided with info about the portal/API?: Yes Did the patient sign up for the portal?: No CODE STATUS:: Full Code INSURANCE COVERAGE / FINANCIAL ISSUES:: AARP [employer] and Medicare. CURRENT HOME/COMMUNITY SERVICES/EQUIPMENT:: [employer], crutches, and diabetic supplies, i.e. meter and test strips. PRIMARY CARE PHYSICIAN:: Andre Aguilar DO ([place], [place]). POTENTIAL DISCHARGE NEEDS:: Follow up appointments with PCP, orthopedics, and short-term rehab. PATIENT/FAMILY EDUCATION NEEDS:: Review discharge instructions, including limitations, medications, and follow-up plan of care; discuss [employer] Me [employer] and self management needs. ANTICIPATED BARRIERS TO DISCHARGE:: None anticipated at this time. TRANSPORTATION:: Wheelchair van vs. ambulance. PLAN:: Vikas will require short-term rehab before returning home and he is in agreement with this. He will follow up with his PCP, orthopedic surgeon, and plan of care as directed. He will either be transported by wheelchair van or ambulance when ready. CM will continue to support Vikas and any discharge planning needs.
--- NOTE | 2021-12-10 09:20 | PGE_ITS ---
Date of Service Date of service: 12/09/21 Time of Service: 23:00 Assessment and Plan Assessment and plan (1) Complication of external fixation device with internal components: Status: Acute (2) Sepsis: Status: Acute Assessment and plan: He has become tachycardic, increasingly febrile with altered mental status and continues to have a appearance of septic arthritis of his ankle. His lactate has risen in spite of intravenous fluids. I discussed situation with orthopedics and recommend to the orthopedist that he consider opening the joint tonight and washing it out because of the sepsis. He stated that he did not want to do this tonight but will do it early in the morning on December 10. We agreed to start vancomycin and Zosyn antibiotics after obtaining cultures from the insertion sites at the ankle of the entrance wounds of the external fixation devices. The patient will be moved to the intensive care unit where he will receive intravenous fluids, intravenous glucose intravenous antibiotics. His lactate will be measured along with his magnesium electrolytes. He will be given ketorolac for his fever which increased up to 40 degrees. I did call his son but did not get an answer on the telephone but left a message for him to call the hospital to talk to me or the nursing staff. Blood cultures have been redrawn. His condition is serious. He will be maintained n.p.o. until after the surgery. Subjective Subjective Interval history since last seen: I was called to see Mr. Regan about 9 PM on this day because of change in mental status, tachycardia and fever. He was quite restless and was shaking w ith chills. He was admitted earlier because of infection on his right ankle which was presumed to be a septic arthritis of the ankle. ,the orthopedist had recommended not using antibiotics unless he worsened. The plan was taken to the operating room on December 10 to rinse out the joint and start on antibiotics at that time after obtaining cultures. We rechecked the patient's lactate level which is now elevated compared to earlier on admission. The patient has received intravenous fluids. His heart rate became more unstable and the nurses on the medical surgical [facility] were more comfortable about caring for him because of frequent monitoring involved. His blood sugar was also low and he was given D50 intravenously. We elected to move him to the intensive care unit. Exam Const General: cooperative, disheveled and ill appearing Orientation: oriented x3 and oriented to place HEN[facility] Mouth: oral mucosae normal and moist mucous membranes Neck Neck: normal visual inspection, no lymphadenopathy and no meningeal signs Resp Auscultation: clear to auscultation bilaterally and no rhonchi Cardio Rate: tachycardic Rhythm: regular rhythm Heart Sounds: S1 normal, S2 normal and murmur Other: 6. Systolic ejection murmur GI Inspection: normal to inspection and distended Palpation: soft, no hepatosplenomegaly and nontender Extrem Other: Right lower extremity is still quite erythematous at the ankle and proximal foot. He has diminished sensation of both feet. There is pus oozing out of the medial malleolar area as well as over the insertion sites of the external fixation devices both medial and laterally. There is no lymphangitis seen. Objective Last Vital Signs Temp 37.3 C 12/10/21 08:19 Pulse 71 12/10/21 08:19 Resp 19 12/10/21 08:19 BP 92/59 L 12/10/21 08:19 Pulse Ox 97 12/10/21 08:19 Laboratory Results - last 24 hr 12/09/21 12/09/21 12/09/21 16:10 16:10 16:10 WBC 11.42 H RBC 3.62 L Hgb 12.0 L Hct 36.6 L MCV 101.1 H MCH 33.1 H MCHC 32.8 RDW 12.6 Plt Count 205 MPV 9.6 Immature Gran % 0.6 Neutrophils % 81.8 Band Neutrophils % Lymphocytes % 8.7 Monocytes % 8.6 Eosinophils % 0.0 Basophils % 0.3 Metamyelocytes % Nucleated RBC % 0 Absolute Neutrophils 9.34 H Absolute Lymphocytes 0.99 L Absolute Monocytes 0.98 H Absolute Eosinophils 0.00 Absolute Basophils 0.03 RBC Morphology ESR PT INR D-Dimer VBG Lactate Sodium 137 Potassium 4.3 Chloride 102 Carbon Dioxide 26.0 Anion Gap 9.0 BUN 19 H Creatinine 1.0 Estimated GFR/1.73 m2 >= 60.00 Glucose 51 L Hemoglobin A1c 8.3 H Calcium 8.5 Magnesium Total Bilirubin 1.1 H AST 121 H ALT 44 Alkaline Phosphatase 75 C-Reactive Protein Total Protein 7.1 Albumin 2.4 L COVID-19 Source SARS-CoV-2 (PCR) 12/09/21 12/09/21 12/09/21 16:10 16:20 17:05 WBC RBC Hgb Hct MCV MCH MCHC RDW Plt Count MPV Immature Gran % Neutrophils % Band Neutrophils % Lymphocytes % Monocytes % Eosinophils % Basophils % Metamyelocytes % Nucleated RBC % Absolute Neutrophils Absolute Lymphocytes Absolute Monocytes Absolute Eosinophils Absolute Basophils RBC Morphology ESR PT 13.1 H INR 1.3 H D-Dimer VBG Lactate 2.1 H Sodium Potassium Chloride Carbon Dioxide Anion Gap BUN Creatinine Estimated GFR/1.73 m2 Glucose Hemoglobin A1c Calcium Magnesium Total Bilirubin AST ALT Alkaline Phosphatase C-Reactive Protein Total Protein Albumin COVID-19 Source Nasal/Nares SARS-CoV-2 (PCR) Negative 12/09/21 12/09/21 12/10/21 22:00 22:00 00:45 WBC RBC Hgb Hct MCV MCH MCHC RDW Plt Count MPV Immature Gran % Neutrophils % Band Neutrophils % Lymphocytes % Monocytes % Eosinophils % Basophils % Metamyelocytes % Nucleated RBC % Absolute Neutrophils Absolute Lymphocytes Absolute Monocytes Absolute Eosinophils Absolute Basophils RBC Morphology ESR PT INR D-Dimer > 7500 H VBG Lactate 4.7 H* 3.3 H* Sodium Potassium Chloride Carbon Dioxide Anion Gap BUN Creatinine Estimated GFR/1.73 m2 Glucose Hemoglobin A1c Calcium Magnesium Total Bilirubin AST ALT Alkaline Phosphatase C-Reactive Protein Total Protein Albumin COVID-19 Source SARS-CoV-2 (PCR) 12/10/21 12/10/21 12/10/21 00:45 06:35 06:35 WBC 10.57 RBC 3.31 L Hgb 11.0 L Hct 33.5 L MCV 101.2 H MCH 33.2 H MCHC 32.8 RDW 12.9 Plt Count 157 MPV 9.7 Immature Gran % See Differential Neutrophils % 82.0 Band Neutrophils % 8 Lymphocytes % 5.0 Monocytes % 3.0 Eosinophils % 0.0 Basophils % 0.0 Metamyelocytes % 2 Nucleated RBC % 0 Absolute Neutrophils 9.51 H Absolute Lymphocytes 0.53 L Absolute Monocytes 0.32 Absolute Eosinophils 0.00 Absolute Basophils 0.00 RBC Morphology Normal ESR PT INR D-Dimer VBG Lactate Sodium 135 L 135 L Potassium 4.1 4.5 Chloride 102 103 Carbon Dioxide 21.4 21.2 Anion Gap 11.6 H 10.8 BUN 24 H 25 H Creatinine 1.1 1.4 H Estimated GFR/1.73 m2 >= 60.00 50.10 Glucose 110 H D 213 H D Hemoglobin A1c Calcium 8.2 L 8.3 L Magnesium 1.5 L Total Bilirubin AST ALT Alkaline Phosphatase C-Reactive Protein Total Protein Albumin COVID-19 Source SARS-CoV-2 (PCR) 12/10/21 12/10/21 12/10/21 06:35 06:35 06:35 WBC RBC Hgb Hct MCV MCH MCHC RDW Plt Count MPV Immature Gran % Neutrophils % Band Neutrophils % Lymphocytes % Monocytes % Eosinophils % Basophils % Metamyelocytes % Nucleated RBC % Absolute Neutrophils Absolute Lymphocytes Absolute Monocytes Absolute Eosinophils Absolute Basophils RBC Morphology ESR PT INR D-Dimer VBG Lactate 2.8 H* Sodium Potassium Chloride Carbon Dioxide Anion Gap BUN Creatinine Estimated GFR/1.73 m2 Glucose Hemoglobin A1c Calcium Magnesium 2.0 Total Bilirubin AST ALT Alkaline Phosphatase C-Reactive Protein 15.77 H Total Protein Albumin COVID-19 Source SARS-CoV-2 (PCR) 12/10/21 06:35 WBC RBC Hgb Hct MCV MCH MCHC RDW Plt Count MPV Immature Gran % Neutrophils % Band Neutrophils % Lymphocytes % Monocytes % Eosinophils % Basophils % Metamyelocytes % Nucleated RBC % Absolute Neutrophils Absolute Lymphocytes Absolute Monocytes Absolute Eosinophils Absolute Basophils RBC Morphology ESR 44 H PT INR D-Dimer VBG Lactate Sodium Potassium Chloride Carbon Dioxide Anion Gap BUN Creatinine Estimated GFR/1.73 m2 Glucose Hemoglobin A1c Calcium Magnesium Total Bilirubin AST ALT Alkaline Phosphatase C-Reactive Protein Total Protein Albumin COVID-19 Source SARS-CoV-2 (PCR)
--- NOTE | 2021-12-10 10:00 | PGE_ITS ---
Date of Service Date of service: 12/10/21 Time of Service: 10:00 Assessment and Plan Assessment and plan (1) Sepsis: Status: Acute Assessment and plan: Patient was not hypotensive when he arrived to the emergency department at [facility] last night but later developed hypotension during the night and required transfer to the ICU. Blood lactate levels were elevated prior to transfer from the [facility] and [facility] even higher last night peaking at 4.7. Since starting antibiotics and being given fluids lactate is dropped down to 2.8. Blood pressure is stabilized. He is currently on Zosyn 4.5 g IV every 6 hours which should be an adequate dosing to cover Pseudomonas as well as anaerobes and other gram-negative organisms. Patient received a dose of vancomycin 1250 mg IV last night this was given around 3 AM. I reordered vancomycin to be dosed by pharmacy. Patient needs definitive surgical washout of the joint and cultures of the joint. Internal fixation may need to be delayed until any infection in the joint has cleared. (2) Cellulitis of right ankle: Status: Acute Assessment and plan: Antibiotics and surgical washout as above (3) Closed fracture dislocation of right ankle: Status: Acute Assessment and plan: Patient is to remain nonweightbearing postoperatively. Further directions will be provided by orthopedic surgery service Qualifiers: Encounter type: initial encounter Qualified Code(s): S82.891A - Other fracture of right lower leg, initial encounter for closed fracture (4) Complication of external fixation device with internal components: Status: Acute (5) Hx of diabetes mellitus: Assessment and plan: Patient is n.p.o. pending his surgery. I will add some dextrose to his IV fluids until he is able to take p.o. We will cover him with insulin sensitive scale as needed elevated blood sugar. Once he is able to take p.o. medications he will be put on basal bolus insulin along with carbohydrate coverage (6) Hypoglycemia: Status: Acute Assessment and plan: . As above (7) Generalized weakness: Status: Acute Assessment and plan: Will obtain physical therapy and occupational therapy services postoperatively and follow orthopedic surgeries guidelines for rehabilitation. (8) Discharge planning issues: Status: Acute Assessment and plan: Patient understands he is going to need to enter into rehab facility postoperatively. I confirm with him that he is a full code in the event of cardiopulmonary arrest. Critical care time spent with the patient 45 minutes (9) DVT prophylaxis: Status: Acute Assessment and plan: Patient is not currently on any prophylaxis for DVT as the patient is scheduled for the OR this afternoon. I will order SCDs on his nonfractured leg and postoperatively he will be started on enoxaparin Subjective Subjective Interval history since last seen: See admission H&P for details of patient's admission process. In summary this 71-year-old white male with poorly controlled type 2 diabetes mellitus complicated by peripheral neuropathy had external fixation of a dislocated right ankle fracture. This was performed on 11/27/2021. He subsequently had a fall and concern was raised for refracture or loosening of the external hardware of the fixation device for the ankle and was transferred from [facility] last night to [facility] for surgical repair. He also was noted to have hypoglycemia and elevated blood lactate. He says that he had been running a fever for couple of days. He ended up being transferred to the medical ICU last night for what appears to be septic joint. See Dr. Sanchez's H&P for details. Blood and superficial wound cultures were obtained last night. He was begun on Vancomycin and Zosyn last night. This morning patient is hemodynamically stable. Patient is awaiting surgical cultures of the joint and repair of the joint. Patient denies any chest pain or pressure or dyspnea. Even prior to his initial ankle fracture he had no exertional dyspnea nor exertional chest pain or pressure. He has no history of stroke heart attack or CHF. Admission EKG last night demonstrated normal sinus rhythm with no ischemic ST or T wave changes. This is a normal-appearing EKG. Exam Narrative Exam Narrative: Older white male lying in bed in no acute distress. He is alert and oriented person place time circumstance. HEENT is remarkable for right eye is opacified from previous eye injury. He states he has no vision of his right eye. Left eye normal EOMI and normal pupil. Sclera looks normal. He is partially edentulous. He is missing most of his teeth in his upper jaw except for a molar on the right side. His teeth are in poor repair in the lower jaw has had a number of fillings but has no loose teeth. Oropharynx is noninjected no exudate. Neck is supple nontender no JVD normal carotid pulses no bruits Lungs are clear to auscultation Heart is regular rate and rhythm without murmur rub or gallop. Abdomen is soft obese nontender nondistended normal bowel sounds no bruits no organomegaly. Lower extremities he has normal femoral pulses normal popliteal pulses and normal pedal pulses. Right foot and ankle show deformity of the ankle and the lower leg has external fixation devices with pins in the ankle as well as the mid tibia. The right foot is warm and erythematous. There are some serous drainage from the site where the pins are fixating ankle. Sensory exam he is able to make touching his feet but he is not able to discriminate which toes on touching. Objective Last Vital Signs Temp 37.3 C 12/10/21 08:19 Pulse 71 12/10/21 08:19 Resp 19 12/10/21 08:19 BP 92/59 L 12/10/21 08:19 Pulse Ox 97 12/10/21 08:19 Laboratory Results - last 24 hr 12/09/21 12/09/21 12/09/21 16:10 16:10 16:10 WBC 11.42 H RBC 3.62 L Hgb 12.0 L Hct 36.6 L MCV 101.1 H MCH 33.1 H MCHC 32.8 RDW 12.6 Plt Count 205 MPV 9.6 Immature Gran % 0.6 Neutrophils % 81.8 Band Neutrophils % Lymphocytes % 8.7 Monocytes % 8.6 Eosinophils % 0.0 Basophils % 0.3 Metamyelocytes % Nucleated RBC % 0 Absolute Neutrophils 9.34 H Absolute Lymphocytes 0.99 L Absolute Monocytes 0.98 H Absolute Eosinophils 0.00 Absolute Basophils 0.03 RBC Morphology ESR PT INR D-Dimer VBG Lactate Sodium 137 Potassium 4.3 Chloride 102 Carbon Dioxide 26.0 Anion Gap 9.0 BUN 19 H Creatinine 1.0 Estimated GFR/1.73 m2 >= 60.00 Glucose 51 L Hemoglobin A1c 8.3 H Calcium 8.5 Magnesium Total Bilirubin 1.1 H AST 121 H ALT 44 Alkaline Phosphatase 75 C-Reactive Protein Total Protein 7.1 Albumin 2.4 L COVID-19 Source SARS-CoV-2 (PCR) 12/09/21 12/09/21 12/09/21 16:10 16:20 17:05 WBC RBC Hgb Hct MCV MCH MCHC RDW Plt Count MPV Immature Gran % Neutrophils % Band Neutrophils % Lymphocytes % Monocytes % Eosinophils % Basophils % Metamyelocytes % Nucleated RBC % Absolute Neutrophils Absolute Lymphocytes Absolute Monocytes Absolute Eosinophils Absolute Basophils RBC Morphology ESR PT 13.1 H INR 1.3 H D-Dimer VBG Lactate 2.1 H Sodium Potassium Chloride Carbon Dioxide Anion Gap BUN Creatinine Estimated GFR/1.73 m2 Glucose Hemoglobin A1c Calcium Magnesium Total Bilirubin AST ALT Alkaline Phosphatase C-Reactive Protein Total Protein Albumin COVID-19 Source Nasal/Nares SARS-CoV-2 (PCR) Negative 12/09/21 12/09/21 12/10/21 22:00 22:00 00:45 WBC RBC Hgb Hct MCV MCH MCHC RDW Plt Count MPV Immature Gran % Neutrophils % Band Neutrophils % Lymphocytes % Monocytes % Eosinophils % Basophils % Metamyelocytes % Nucleated RBC % Absolute Neutrophils Absolute Lymphocytes Absolute Monocytes Absolute Eosinophils Absolute Basophils RBC Morphology ESR PT INR D-Dimer > 7500 H VBG Lactate 4.7 H* 3.3 H* Sodium Potassium Chloride Carbon Dioxide Anion Gap BUN Creatinine Estimated GFR/1.73 m2 Glucose Hemoglobin A1c Calcium Magnesium Total Bilirubin AST ALT Alkaline Phosphatase C-Reactive Protein Total Protein Albumin COVID-19 Source SARS-CoV-2 (PCR) 12/10/21 12/10/21 12/10/21 00:45 06:35 06:35 WBC 10.57 RBC 3.31 L Hgb 11.0 L Hct 33.5 L MCV 101.2 H MCH 33.2 H MCHC 32.8 RDW 12.9 Plt Count 157 MPV 9.7 Immature Gran % See Differential Neutrophils % 82.0 Band Neutrophils % 8 Lymphocytes % 5.0 Monocytes % 3.0 Eosinophils % 0.0 Basophils % 0.0 Metamyelocytes % 2 Nucleated RBC % 0 Absolute Neutrophils 9.51 H Absolute Lymphocytes 0.53 L Absolute Monocytes 0.32 Absolute Eosinophils 0.00 Absolute Basophils 0.00 RBC Morphology Normal ESR PT INR D-Dimer VBG Lactate Sodium 135 L 135 L Potassium 4.1 4.5 Chloride 102 103 Carbon Dioxide 21.4 21.2 Anion Gap 11.6 H 10.8 BUN 24 H 25 H Creatinine 1.1 1.4 H Estimated GFR/1.73 m2 >= 60.00 50.10 Glucose 110 H D 213 H D Hemoglobin A1c Calcium 8.2 L 8.3 L Magnesium 1.5 L Total Bilirubin AST ALT Alkaline Phosphatase C-Reactive Protein Total Protein Albumin COVID-19 Source SARS-CoV-2 (PCR) 12/10/21 12/10/21 12/10/21 06:35 06:35 06:35 WBC RBC Hgb Hct MCV MCH MCHC RDW Plt Count MPV Immature Gran % Neutrophils % Band Neutrophils % Lymphocytes % Monocytes % Eosinophils % Basophils % Metamyelocytes % Nucleated RBC % Absolute Neutrophils Absolute Lymphocytes Absolute Monocytes Absolute Eosinophils Absolute Basophils RBC Morphology ESR PT INR D-Dimer VBG Lactate 2.8 H* Sodium Potassium Chloride Carbon Dioxide Anion Gap BUN Creatinine Estimated GFR/1.73 m2 Glucose Hemoglobin A1c Calcium Magnesium 2.0 Total Bilirubin AST ALT Alkaline Phosphatase C-Reactive Protein 15.77 H Total Protein Albumin COVID-19 Source SARS-CoV-2 (PCR) 12/10/21 06:35 WBC RBC Hgb Hct MCV MCH MCHC RDW Plt Count MPV Immature Gran % Neutrophils % Band Neutrophils % Lymphocytes % Monocytes % Eosinophils % Basophils % Metamyelocytes % Nucleated RBC % Absolute Neutrophils Absolute Lymphocytes Absolute Monocytes Absolute Eosinophils Absolute Basophils RBC Morphology ESR 44 H PT INR D-Dimer VBG Lactate Sodium Potassium Chloride Carbon Dioxide Anion Gap BUN Creatinine Estimated GFR/1.73 m2 Glucose Hemoglobin A1c Calcium Magnesium Total Bilirubin AST ALT Alkaline Phosphatase C-Reactive Protein Total Protein Albumin COVID-19 Source SARS-CoV-2 (PCR)
[2021-12-10 10:24] LABS: Lactate 2.3 mmol/L (0.6-1.4)
--- NOTE | 2021-12-10 10:27 | W.ANESPRE ---
General Info Date of Service Date Performed: 12/10/21 Height: 6 ft 1 in Weight: 117 kg Body Mass Index (BMI): 34.0 Surgical Procedure: Operation Date: 12/10/21 14:25 Proposed Procedure Side Surgeon p Debridement RIGHT LEG/ EX FIX ADJUST OR REMOVE Esdras Evangelista MD Meds Allergies and Home Medications Allergies Allergy/AdvReac Type Severity Reaction Status Date / Time No Known Allergies Allergy Unverified 12/09/21 16:08 Home Medication Medication Instructions Recorded metformin 1,000 mg tablet 1,000 mg PO BID 11/22/21 acetaminophen 500 mg tablet 500 mg PO Q6H PRN #90 tab 11/26/21 celecoxib 200 mg capsule 200 mg PO BID #60 cap 11/26/21 aspirin 81 mg tablet,delayed 81 mg PO BID #60 tab 11/27/21 release glipizide 10 mg tablet, extended 10 mg PO DAILY 11/27/21 release 24 hr oxycodone-acetaminophen 5 mg-325 1 tab PO Q6H PRN #18 tab MDD 4 tabs 12/03/21 mg tablet (Percocet) Current Visit Medications: Current Medications Generic Name Dose Route Start Last Admin Trade Name Freq PRN Reason Stop Dose Admin Acetaminophen 650 mg 12/09/21 21:43 12/09/21 22:34 Acetaminophen 325 Mg Tab PO 650 mg Q6H PRN PRN Administration Dextrose 0 gm 12/10/21 09:10 Glucose 40% Oral Solution 15 Gm/37.5 Gm Tube PO DIRECTED PRN Dextrose/Water 0 gm 12/10/21 09:10 Dextrose 50%-Water 25 Gm/50 Ml Syr IVP DIRECTED PRN Dimethicone/Zinc Oxide 0 gm 12/09/21 18:52 Abida Protect Cream 142 Gm Tube TP PRN PRN Piperacillin Sod/Tazobactam 100 mls @ 200 mls/hr 12/10/21 00:00 12/10/21 06:20 Sod 4.5 gm/ Sodium Chloride IVPB Infused Q6H YIFAN Infusion Protocol Ringer's Solution 1,000 mls @ 125 mls/hr 12/10/21 06:00 12/10/21 06:00 IV 125 mls/hr INFUSION YIFAN Administration Vancomycin/PEG/NADA/Lysine/Water 1.25 gm in 250 mls @ 166.667 mls/hr 12/10/21 16:00 Vancocin Injection IV Q14H [facility] Protocol Per Protocol Insulin Aspart 0 units 12/10/21 12:00 Insulin Aspart 300 Units/3 Ml Pen SC Q6H [facility] Protocol Morphine Sulfate 4 mg 12/09/21 18:52 12/09/21 21:11 Morphine 4 Mg/Ml Syr IVP 4 mg Q4H PRN PRN Administration Sodium Chloride 0 ml 12/09/21 21:38 12/10/21 03:35 Normal Saline Flush 10 Ml Syr IVP 10 ml PRN PRN Administration PFSH Active Problems Active Problems: Problem Status Onset Code Sepsis A41.9 Hypoglycemia E16.2 Cellulitis of right ankle L03.115 Complication of external fixation device with internal components T84.9XXA Noncompliance Z91.19 Fall at home W19.XXXA, Y92.009 Generalized weakness R53.1 Closed fracture dislocation of right ankle 11/22/21 S82.891A Medical History Medical History History of COVID-19 Hx of diabetes mellitus Surgical History Surgical History Hx of eye surgery right eye trauma; blindness at present Hx of knee surgery left Hx of shoulder surgery left Tobacco Smoking/Tobacco Use Status: Never Alcohol Alcohol Intake: never Substance Use Substance use: Never Substance use type: does not use Vital Signs and Lab Results Vital Signs Most Recent Vital Signs in EMR: Most Recent Vital Signs Temp Pulse Resp BP Pulse Ox 37.3 C 71 19 92/59 L 97 12/10/21 08:19 12/10/21 08:19 12/10/21 08:19 12/10/21 08:19 12/10/21 08:19 Point of Care Results Point of Care Results: Finger Stick Blood Glucose 207 12/10/21 07:40 Lab Results Result Diagrams: 12/10/21 06:35 12/10/21 06:35 Blood Type / Crossmatch: No Data to Display Complete Blood Count: White Blood Count 10.57 10^3/uL (4.4-10.8) 12/10/21 06:35 12/10/21 Red Blood Count 3.31 10^6/uL (4.36-5.78) L 12/10/21 06:35 12/10/21 Hemoglobin 11.0 g/dL (13.5-17.5) L 12/10/21 06:35 12/10/21 Hematocrit 33.5 % (40.0-50.0) L 12/10/21 06:35 12/10/21 Platelet Count 157 10^3/uL (130-400) 12/10/21 06:35 12/10/21 Venous Blood Lactate 2.3 mmol/L (0.6-1.4) H* 12/10/21 10:18 12/10/21 Complete Metabolic Panel: Sodium Level 135 mmol/L (136-145) L 12/10/21 06:35 12/10/21 Potassium Level 4.5 mmol/L (3.5-5.1) 12/10/21 06:35 12/10/21 Chloride Level 103 mmol/L (98-107) 12/10/21 06:35 12/10/21 Carbon Dioxide Level 21.2 mmol/L (21.0-32.0) 12/10/21 06:35 12/10/21 Blood Urea Nitrogen 25 mg/dL (7-18) H 12/10/21 06:35 12/10/21 Creatinine 1.4 mg/dL (0.70-1.30) H 12/10/21 06:35 12/10/21 Estimated GFR/1.73 m2 50.10 (mL/min/1.73m2) 12/10/21 06:35 12/10/21 Magnesium Level 2.0 mg/dL (1.8-2.4) 12/10/21 06:35 12/10/21 Calcium Level 8.3 mg/dL (8.5-10.1) L 12/10/21 06:35 12/10/21 Albumin 2.4 g/dL (3.4-5.0) L 12/09/21 16:10 12/09/21 Glucose Level 213 mg/dL (74-106) H 12/10/21 06:35 12/10/21 Hemoglobin A1c 8.3 % (<5.7) H 12/09/21 16:10 12/09/21 C-Reactive Protein 15.77 mg/dL (0.0-0.3) H 12/10/21 06:35 12/10/21 Liver Function Panel: Alanine Aminotransferase (ALT/SGPT) 44 U/L (16-63) 12/09/21 16:10 12/09/21 Aspartate Amino Transf (AST/SGOT) 121 U/L (15-37) H 12/09/21 16:10 12/09/21 Coagulation Panel: INR International Normalized Ratio 1.3 (0.9-1.1) H 12/09/21 16:10 12/09/21 Prothrombin Time 13.1 sec (9.3-11.0) H 12/09/21 16:10 12/09/21 D-Dimer > 7500 ng/mlFEU (<500) H 12/09/21 22:00 12/09/21 Cardiac Panel: No Data to Display Arterial Blood Gas: No Data to Display Venous Blood Gas: No Data to Display Pancreas Panel: No Data to Display Thyroid Panel: No Data to Display Infectious Disease: Coronavirus (COVID-19)(PCR) Negative (Negative) 12/09/21 16:20 12/09/21 Coronavirus 2019 Source Nasal/Nares 12/09/21 16:20 12/09/21 Blood Cultures: No Data to Display Toxicology Panel: No Data to Display Imaging and Studies Imaging and Studies Study information below may be from another EMR and interpreted by another provider. Please see original notes in EMR for more complete details. EKG Summary: 12/09/21: sinus. Anesthesia Assessment and Plan Anesthesia History Personal History: No History of Anesthesia Complications Family History: No Family History of Anesthesia Complications Exercise Tolerance Exercise Tolerance: Metabolic Equivalents>4 Cardiac & Pulmonary Exam Cardiac Exam: Normal S1/S2 Heart Sounds Pulmonary Exam: Clear Bilateral Breath Sounds Implantable Cardiac Device Does patient have a Pacemaker or an ICD?: No Airway Exam Known Difficult Airway: No Mallampati Class: 3 Mouth Opening: Normal (> 3cm) Thyromental Distance: Greater than 3 cm Neck Range of Motion: Full ROM Neck Circumference: Normal Teeth Condition: Generalized Poor Dentition and Loose or Chipped ASA Classification ASA Score: ASA 3 Emergency Case?: Yes NPO Status NPO Status: NPO Clears >2 hours, Solids >8 hours Anesthesia Plan Resuscitation Status: Full Code Anesthesia Technique: MAC Anesthesia Airway Planned: Natural Airway Monitors Used: Standard Monitors Preoperative Comments:: 71 yo male to OR for septic joint after ex-fix placement for ankle fracture. Sig PMHx: DM2 (HA1c 8.7%, BS @ 07 was 200s), septic (lactate 4.7 yesterday). Has been getting pip/sharon 4.5 gm, vanco 1 gm (last dose 12/10/21 0215). PLan: discussed with pt that we would start out as a MAC case, but would escalate as needed to a GA. He denies much discomfort in his ankle and is likely insensate.
[2021-12-10] MEDS: Acetaminophen 325 MG TAB 650 MG PO ×2 (12:07→20:50)
--- NOTE | 2021-12-10 12:39 | PHACLINREV_ITS ---
Pharmacy Admission Review - Admission Clinical Review (Last Reviewed 12/10/21 @ 08:46 by Esdras Evangelista MD) DVT prophylaxis (Acute) Discharge planning issues (Acute) Sepsis (Acute) Hypoglycemia (Acute) Cellulitis of right ankle (Acute) Complication of external fixation device with internal components (Acute) Noncompliance (Acute) Fall at home (Acute) Generalized weakness (Acute) Closed fracture dislocation of right ankle (Acute 11/22/21) No Known Allergies Allergy (Unverified 12/09/21 16:08) Resuscitation Status Full Code Height 6 ft 1 in Weight 117 kg - Renal Dosing Renal Dosing: BUN 25 mg/dL (7-18) H 12/10/21 06:35 Creatinine 1.4 mg/dL (0.70-1.30) H 12/10/21 06:35 Medications needing adjustments: Reviewed (eCrCl 65 ml/min using adjusted bw; zosyn dosing okay) - Anticoagulation Anticoagulation: Hgb 11.0 g/dL (13.5-17.5) L 12/10/21 06:35 Hct 33.5 % (40.0-50.0) L 12/10/21 06:35 Plt Count 157 10^3/uL (130-400) 12/10/21 06:35 INR 1.3 (0.9-1.1) H 12/09/21 16:10 Creatinine 1.4 mg/dL (0.70-1.30) H 12/10/21 06:35 DVT Prophylaxis: N/A Therapeutic Anticoagulation: N/A (will go to OR today) - Opiate Usage Evaluate Pain Scale/Pains Meds: N/A - Relevant Labs ESR 44 mm/hr (0-20) H 12/10/21 06:35 Sodium 135 mmol/L (136-145) L 12/10/21 06:35 Potassium 4.5 mmol/L (3.5-5.1) 12/10/21 06:35 Chloride 103 mmol/L (98-107) 12/10/21 06:35 Magnesium 2.0 mg/dL (1.8-2.4) 12/10/21 06:35 C-Reactive Protein 15.77 mg/dL (0.0-0.3) H 12/10/21 06:35 Electrolytes, C-Reactive P, ESR: Reviewed - DM Control DM Control: Glucose 213 mg/dL (74-106) H D 12/10/21 06:35 Hemoglobin A1c 8.3 % (<5.7) H 12/09/21 16:10 Finger Stick Blood Glucose 178 Finger Stick Blood Glucose 178 Finger Stick Blood Glucose 207 Finger Stick Blood Glucose 207 Finger Stick Blood Glucose 165 Finger Stick Blood Glucose 165 Finger Stick Blood Glucose 145 Finger Stick Blood Glucose 145 Insulin Dosing: Reviewed (aspart per SS) - Heart Failure/ND EF%, ZOIE's, B-Blockers, Diuretics: Reviewed - BP Control BP Control: Blood Pressure [Right Arm] 92/59 Blood Pressure [Right Arm] 82/45 Blood Pressure 124/73 Blood Pressure 113/70 Blood Pressure 117/67 Blood Pressure 112/65 Blood Pressure 92/59 Blood Pressure 96/53 Blood Pressure 95/63 Blood Pressure 88/60 Blood Pressure 84/56 Blood Pressure 83/51 Blood Pressure 82/45 Blood Pressure 83/54 Blood Pressure 100/54 Blood Pressure 100/54 Blood Pressure 118/61 If elevated: Reviewed (hypotension due to sepsis) - Qtc Review List meds needing interventions: QTc 446 on admission - IV to PO Switch IV Medications: Reviewed - Home Meds Home Med List reviewed: Reviewed Relevent Home Meds Not ordered & why?: oral diabetic agents not ordered -- as part per SS ordered - Current meds Current Medication Order Review: Reviewed
--- NOTE | 2021-12-10 14:15 | DI.RAD_ITS ---
Exam(s) XR TIB/FIB RT EXAM: XR TIB/FIB RT CLINICAL HISTORY: Right leg ankle deformity pain infection. TECHNIQUE: 2D digital imaging was performed. COMPARISON: No exams were available for comparison FINDINGS: Fluoroscopy was provided during surgical procedure right ankle. See report for details Cumulative dose: 0.3177mGy IMPRESSION: DATA REPOSITORY: RADIATION DOSE DELIVERED:
[2021-12-10] MEDS: Hydrogen Peroxide 3% 480 ML BTL (15:12)
--- NOTE | 2021-12-10 16:07 | NUR.NOTE ---
Nursing Note: Pt returned to room 219 via ICU bed from OR at 1607. VSS. Pt minimally responsive. Report received from Anne Marie Dos Santos RN and Corine Miranda CRNA. Pt arrived with O2 at 8L via mask, mendez in place, external fixation device in place.
[2021-12-10] MEDS: VANCOMYCIN/WATER (PEG) 1.25 GM/250 ML BAG IV (16:25)
--- NOTE | 2021-12-10 16:30 | W.ANESPOSTOP ---
Postoperative Evaluation Date, Time and Location Date Performed: 12/10/21 Time Performed: 14:20 Patient Location: Intensive Care Unit Vital Signs Most Recent Imported Vital Signs: Most Recent Vital Signs Temp Pulse Resp BP Pulse Ox 37.3 C 71 18 126/75 95 12/10/21 13:13 12/10/21 13:13 12/10/21 14:20 12/10/21 14:01 12/10/21 14:20 Most Recent Manually Entered Vital Signs: Adult Blood Pressure: 155/100 Heart Rate: 89 Respirations: 22 Oxygen Saturation (%): 98 Temperature (C): 36.1 C Pain Score (0-10 Scale): 3 Pain Score Most Recent Pain Score: Most Recent Pain Score Pain Level [Right Ankle] 6 12/09/21 16:13 Pain Level 0 12/10/21 13:13 Assessment Mental Status: Arousable with meaningful communication Airway and Respiratory Function: Patent airway with normal (patient baseline) respiratory exam Cardiovascular Function: Hemodynamically Stable Hydration Status: Adequately Hydrated Nausea & Vomiting: No Nausea or Vomiting Pain: Pain is tolerable per patient Peripheral Nerve Block: Patient did not receive a nerve block
[2021-12-10] MEDS: MORPHine 4 MG/ML SYR IVP ×2 (18:48→22:47)
[2021-12-10] MEDS: Insulin Aspart 300 UNITS/3 ML PEN SC (22:19)
[2021-12-11] VITALS (57 sets, daily range): BP systolic 119–190; BP diastolic 54–88; PULSE 67–102; RESP 15–32; TEMP 36.4–38.6; O2SAT 88–98
[2021-12-11] MEDS: Lactated Ringers 1,000 ML 125 ML IV (00:14)
[2021-12-11] MEDS: PIPERACILLIN/TAZO 4.5 GM in Normal Saline 100 ML IVPB ×4 (00:48→18:07)
[2021-12-11] MEDS: VANCOMYCIN/WATER (PEG) 1.25 GM/250 ML BAG IV ×2 (06:36→20:00)
[2021-12-11 07:03] LABS: Lactate 1.9 mmol/L (0.6-1.4)
[2021-12-11 07:12] LABS: HCT 31.6 % (40.0-50.0); HGB 10.4 g/dL (13.5-17.5); MCH 33.1 pg (27.0-33.0); MCHC 32.9 % (32.0-36.0); MCV 100.6 fL (80-95); MPV 9.8 fL (8.0-11.0); Nucleated RBC 0 %; Platelet Count 131 10^3/uL (130-400); RBC 3.14 10^6/uL (4.36-5.78); RDW 13.2 % (11.8-14.1); RDW-SD 49.4 fL; WBC 10.56 10^3/uL (4.4-10.8)
[2021-12-11 07:26] LABS: ALT 46 U/L (16-63); AST 92 U/L (15-37); Albumin 1.7 g/dL (3.4-5.0); Alkaline Phosphatase 71 U/L (46-116); Anion Gap 9.4 mmol/L (3-11); BUN 23 mg/dL (7-18); C-Reactive Protein 22.11 mg/dL (0.0-0.3); CO2 24.6 mmol/L (21.0-32.0); CREATININE 0.9 mg/dL (0.70-1.30); Calcium 7.8 mg/dL (8.5-10.1); Chloride 107 mmol/L (98-107); Glucose 191 mg/dL (74-106); Potassium 4.1 mmol/L (3.5-5.1); Sodium 141 mmol/L (136-145)
[2021-12-11 07:36] LABS: Absolute Lymphocyte Count 1.16 10^3/uL (1.2-3.4); Absolute Monocyte Count 0.63 10^3/uL (0.1-0.8); Absolute Neutrophil Count 8.76 10^3/uL (1.2-6.7); Bands % 7; Diff Comment Manual Differential; RBC Morphology Normal
--- NOTE | 2021-12-11 08:35 | CMPROGNOTE_ITS ---
- If Service Date Differs Date of service: 12/11/21 Time of Service: 08:35 Care Management Progress Note S/O:Vikas was sitting up in bed when CM met with him. He admitted to being tired as he had just had an episode of rigors which left him exhausted. His temperature natalie to 38.6 after the episode. He also shared that his left arm hurt from an which had infiltrated. He had Vancomycin, which is very irritating, running when the infiltrate occurred leaving him with swelling and pain in the area. Hyaluronidase will be administered at the site. Vikas has been downgraded to Med-Surg status and will be moved out of the ICU as beds become available. He denies pain in his right leg despite having had surgery yesterday. The plan is for Vikas to transfer to [facility] for additional surgery but this is not likely to happen for a couple of days due to bed availability. A: Vikas is a 71 year old man admitted om 12/10/21 with weakness and cellulitis P:Vikas will require short-term rehab before returning home and he is in agreement with this plan. He will follow up with his PCP, orthopedic surgeon, and plan of care as directed. He will either be transported by wheelchair van or ambulance when ready. CM will continue to support Vikas and any discharge planning needs.
--- NOTE | 2021-12-11 09:00 | DI.US_ITS ---
Exam(s) US UPPER EXTREMITY VENOUS LT EXAM: US UPPER EXTREMITY VENOUS LT CLINICAL HISTORY: left arm edema; r/o DVT TECHNIQUE: Ultrasound performed using standard protocol. COMPARISON: No exams were available for comparison FINDINGS: Duplex venous ultrasound of the upper extremity was performed according to the usual protocol. The d eep veins are freely compressible throughout and show no visible thrombus. There is thrombus identified in the cephalic vein which is about 8 cm in length. IMPRESSION: Superficial venous thrombus noted in cephalic vein. No evidence of DVT. DATA REPOSITORY:
--- NOTE | 2021-12-11 09:03 | W.PM.PROGNOT ---
Date of Service Date of service: 12/11/21 Time of Service: 09:03 Assessment and Plan Assessment and plan (1) Sepsis: Status: Acute Assessment and plan: Patient is gram-negative nicolas bacteremia but his sepsis condition seems to be improving. He is hemodynamically stable and can be transferred to the medical/surgical floor. We will continue his Zosyn at present time. I discussed his antibiotic choices with Dr. Phipps. She recommended changing from Zosyn to cefepime because of his acute kidney injury however his NIRAV has resolved. Creatinine is down to 0.9 he is making good urine output. Present time I will continue the Zosyn pending the results of his blood culture identification and sensitivity. Because the gram-positive cocci in the wound culture I will continue with the vancomycin. (2) Cellulitis of right ankle: Status: Acute Assessment and plan: Antibiotics as above. Patient may need another washout procedure in the ankle but this will be determined by orthopedic surgery service. (3) Closed fracture dislocation of right ankle: Status: Acute Assessment and plan: Patient is to remain nonweightbearing postoperatively. I discussed his case with Dr. Us. He is reached out to a trauma surgeon that [facility] who is dealt with similar ankle fracture dislocations that became complicated with infections. That trauma surgeons recommending IM nailing from the calcaneus up to the ankle into the tibia with an antibiotic coated nail. Dr. Us is working on getting him transferred to [facility] but this may be delayed for couple days due to bed capacity at [facility]. Dr. Us is agreed to take the patient on the orthopedic service. Hospitalist service will continue to follow patient and assist with medical management. Qualifiers: Encounter type: initial encounter Qualified Code(s): S82.891A - Other fracture of right lower leg, initial encounter for closed fracture (4) Complication of external fixation device with internal components: Status: Acute Assessment and plan: as above (5) Hx of diabetes mellitus: Assessment and plan: Patient is now on basal bolus insulin. I will add carbohydrate coverage. Monitor blood sugars before meals and at bedtime. (6) Hypoglycemia: Status: Resolved Assessment and plan: No further hypoglycemic spells. Continue to monitor blood sugars before meals at bedtime as well as as needed and asymptomatic hypoglycemia. (7) Generalized weakness: Status: Acute Assessment and plan: Will obtain physical therapy and occupational therapy services postoperatively and follow orthopedic surgeries guidelines for rehabilitation. Patient remains nonweightbearing pending definitive surgical stabilization of his right ankle fracture. No physical therapy at this time. (8) Discharge planning issues: Status: Acute Assessment and plan: Plans for transfer to [facility] once a bed becomes available. Dr. Us is facilitating this transfer. Patient remains a full code per the patient's request. Further discharge planning will be decided upon upon discharge from [facility]. Anticipate he will need a prolonged residential facility stay to rehabilitate from his injury. (9) DVT prophylaxis: Status: Acute Assessment and plan: As the patient is not going to have immediate surgery I have started him on enoxaparin 40 mg subcutaneously daily. Subjective Subjective Interval history since last seen: Patient is status post external fixation right ankle fracture/dislocation and washout of the wound and wound cultures. Patient presented with septic picture and blood cultures have come back positive for gram-negative rods. Gram stain of the wound culture shows rare gram-positive cocci. Patient is currently on vancomycin and Zosyn. Overall he feels better although last night he did have some dyspnea but that is improved. He did require 1 L/min of oxygen through the night. Patient denies any chest pain or pressure. Exam Narrative Exam Narrative: Obese white male lying in bed in semifowler position. He is alert and oriented. Heart is regular rate and rhythm no appreciable murmur rub Lungs with left basilar rales no rhonchi or wheezing right side is clear. Rales did improve with coughing and deep breathing. Abdomen is obese soft and nontender. Extremities: Left arm with noticeable edema of the humerus as well as the forearm and left hand and wrist compared to the right. He has an IV in the left antecubital for which I asked nursing to check its patency it was found to be nonpatent. Unfortunate this is arm that vancomycin have been running into. Right arm without noticeable edema. Pulses were checked in both wrists and are normal. He has normal sensation to light touch in both hands. Legs right leg has external fixation pins the ankle was bandaged I did not take down his dressing to examine the ankle wound today. He has good capillary refill in his toes. Left leg other than some superficial abrasions he has normal pulses and sensory exam is present but diminished in the toes of both feet secondary to chronic diabetic neuropathy. Objective Last Vital Signs Temp 36.4 C L 12/11/21 08:40 Pulse 69 12/11/21 08:01 Resp 22 12/11/21 08:30 BP 119/54 L 12/11/21 08:01 Pulse Ox 93 12/11/21 08:30 Laboratory Results - last 24 hr 12/10/21 12/11/21 12/11/21 10:18 06:53 06:53 WBC RBC Hgb Hct MCV MCH MCHC RDW Plt Count MPV Immature Gran % Neutrophils % Band Neutrophils % Lymphocytes % Monocytes % Eosinophils % Basophils % Nucleated RBC % Absolute Neutrophils Absolute Lymphocytes Absolute Monocytes Absolute Eosinophils Absolute Basophils RBC Morphology VBG Lactate 2.3 H* 1.9 H Sodium 141 Potassium 4.1 Chloride 107 Carbon Dioxide 24.6 Anion Gap 9.4 BUN 23 H Creatinine 0.9 D Estimated GFR/1.73 m2 >= 60.00 Glucose 191 H Calcium 7.8 L Total Bilirubin 1.0 AST 92 H ALT 46 Alkaline Phosphatase 71 C-Reactive Protein 22.11 H Total Protein 6.0 L Albumin 1.7 L 12/11/21 06:53 WBC 10.56 RBC 3.14 L Hgb 10.4 L Hct 31.6 L MCV 100.6 H MCH 33.1 H MCHC 32.9 RDW 13.2 Plt Count 131 MPV 9.8 Immature Gran % 0.0 Neutrophils % 76.0 Band Neutrophils % 7 Lymphocytes % 11.0 Monocytes % 6.0 Eosinophils % 0.0 Basophils % 0.0 Nucleated RBC % 0 Absolute Neutrophils 8.76 H Absolute Lymphocytes 1.16 L Absolute Monocytes 0.63 Absolute Eosinophils 0.00 Absolute Basophils 0.00 RBC Morphology Normal VBG Lactate Sodium Potassium Chloride Carbon Dioxide Anion Gap BUN Creatinine Estimated GFR/1.73 m2 Glucose Calcium Total Bilirubin AST ALT Alkaline Phosphatase C-Reactive Protein Total Protein Albumin Reviewed Pertinent PMH: Yes
[2021-12-11] MEDS: Normal Saline Flush 10 ML SYR IVP ×4 (09:05→22:24)
[2021-12-11] MEDS: Insulin Aspart 300 UNITS/3 ML PEN SC ×4 (09:06→22:28)
--- NOTE | 2021-12-11 09:16 | NUR.NOTE ---
Addendum entered by Deidra Valentin 12/11/21 15:16: Remeasured the arm at the end of the shift (1500) and both upper and lower arm have decreased by 0.5 CM. Upper arm 36cm and lower arm 29cm in circumference. Measurement sites marked. Original Note: BP cuff removed from L arm with Vanco finishing infusing into LAC at change of shift with NS following. Arm noted to be swollen. IV fluid stopped. Dr. Garcia in the room assessing. Coolness around forearm area with taunt appearance to bicep region and around AC site. Unable to get a blood flash from IV. Pt does not feel any pain with flush. Dr. Null ordering an U/S and pharmacy consulted on likely infiltrate with posiible vancomycin involvement. Recommendation to elevate with dry heat applied and monitor for signs of ischemia. Refractory cases may require hyaluronic acid. Dr. Null informed and aware of pharmacy recommendations. Plan to monitor with elevation and heat. Nursing Note:
--- NOTE | 2021-12-11 09:42 | W.PM.PROGNOT ---
Date of Service Date of service: 12/11/21 Time of Service: 08:00 Assessment and Plan Assessment and plan (1) Closed fracture dislocation of right ankle: Status: Acute Assessment and plan: Continue with ex-fix. Foot appears inverted appropriately without signs of lateral displacement. Unfortunately he has failed most closed treatment and external fixation of his ankle fracture with gross instability. I discussed the case with Dr. Evangelista yesterday who relayed how poor the tissue quality was with a gross infection but also significant instability. I reached out to Dr. Caballero at [facility] for her input about this case and the best way to move forward. I outlined the treatment plan thus far and also my thoughts on the next steps. Given the infection and the chronic instability and the lack of protective sensation, she advocated for intramedullary nail from the calcaneus/hindfoot into the tibia which would also be antibiotic impregnated. This would provide more rigid stabilization of the ankle fracture and also be better treating the infection. This is not something I have done in the past dorsal side that we have here at [facility] to do. Therefore, she offered to except Mr. Regan for this procedure in the near future. I reached out to [facility] to initiate transfer and this point he is likely to be extended for surgery on morning. We will tentatively arrange for transport down to [facility] for a 6 AM arrival of the day surgery area. Until then, he is to keep the foot elevated. Bedrest. Regular diet. N.p.o. after midnight on Friday night. Qualifiers: Encounter type: initial encounter Qualified Code(s): S82.891A - Other fracture of right lower leg, initial encounter for closed fracture (2) Cellulitis of right ankle: Status: Acute Assessment and plan: Gram negative ramirez matching his blood cultures. Currently on Zosyn to cover until speciation occurs. Lactate is trending down. Vitals are now stable. Continue to follow cultures, consider repeat blood cultures tomorrow AM. Subjective Subjective Interval history since last seen: Vikas reports to be doing well after the surgery yesterday. He denies any fever or chills. His vitals have been stable. His pain has been well controlled. Minimal drainage reported by nursing. Objective Last Vital Signs Temp 38.6 C H 12/11/21 10:55 Pulse 79 12/11/21 18:32 Resp 16 02/22/22 18:32 BP 122/68 12/11/21 18:32 Pulse Ox 94 12/11/21 18:32 Laboratory Results - last 24 hr 12/11/21 12/11/21 12/11/21 06:53 06:53 06:53 WBC 10.56 RBC 3.14 L Hgb 10.4 L Hct 31.6 L MCV 100.6 H MCH 33.1 H MCHC 32.9 RDW 13.2 Plt Count 131 MPV 9.8 Immature Gran % 0.0 Neutrophils % 76.0 Band Neutrophils % 7 Lymphocytes % 11.0 Monocytes % 6.0 Eosinophils % 0.0 Basophils % 0.0 Nucleated RBC % 0 Absolute Neutrophils 8.76 H Absolute Lymphocytes 1.16 L Absolute Monocytes 0.63 Absolute Eosinophils 0.00 Absolute Basophils 0.00 RBC Morphology Normal VBG Lactate 1.9 H Sodium 141 Potassium 4.1 Chloride 107 Carbon Dioxide 24.6 Anion Gap 9.4 BUN 23 H Creatinine 0.9 D Estimated GFR/1.73 m2 >= 60.00 Glucose 191 H Calcium 7.8 L Total Bilirubin 1.0 AST 92 H ALT 46 Alkaline Phosphatase 71 C-Reactive Protein 22.11 H Total Protein 6.0 L Albumin 1.7 L Objective Narrative Objective Narrative: All cultures are currently growing gram negative ramirez.
--- NOTE | 2021-12-11 10:24 | NUR.NOTE ---
I went in to check on the patient's arm and found he had full body rigors. Dr. Null in the unit and notified. He states it is likely patient's bacterimic state and to add warmth and monitor. He also had audible wheezes but when auscultated there were not present in lung bethea. Pt states he gets wheezy like this as home. Assessed patient head to toe and found no changes from AM assessment. No change to patient's L arm in appearance, pulse, or sensation. No change to R lower leg. Patient has no pain or other symptoms. Temp staying 36.8-37C. I piled warm blankets on head to toe with no affect. Placed patient on 2L N/C for 02 sat 88% - difficult to get accurate waveform with tremors. Also did BP and it registered 190/88 but manual BP was 140/60. Increase patient o2 4L/NC. Placed Elvin hugger on the patient with good affect. Patient's tremors slowed and nearly ceased within 5 min. Patient started resting. HR decreased from low 100s to 90s. RR slowed from 30s to high 20s, and breathing relaxed with no audible wheeze. Pt is now resting with elvin hugger in place. He also still has heat pad to L arm with it elevated for infiltration. Event time 0955 (found patient shaking) to 1020 - stabilized and resting. Nursing Note:
--- NOTE | 2021-12-11 10:45 | NUR.NOTE ---
3238 Reassessed patient: He states he is feeling warmer, no tremors present. He requested to keep the bare hugger for now. He was resting soundly when I went in the room and awakened easily. I left the 2L/NC in place as he is resting - 94%. I re-elevated his arm better and ensured the heat was on it. It is less taunt, has good sensation and pulse, and no adverse change to color or appearance. R ankle elevated on pillows with external fixation device in place. Temp 38.6C I lowered the the Bare hugger temp to 38C from 42C and decreased the fan to low. Pt has occasional tremor of the chin while resting. Nursing Note:
[2021-12-11] MEDS: Enoxaparin 40 MG/0.4 ML SYR SC (11:41)
[2021-12-11] MEDS: oxyCODONE 5 mg/Acetaminophen 325 mg TAB 1 TAB PO ×2 (12:34→19:59)
--- NOTE | 2021-12-11 13:00 | DI.US_ITS ---
APPROVED REPORT EXAM: Comprehensive 2D, Doppler, and color-flow Echocardiogram Patient Location: In-Patient Room/Bed: [id number] Tank Cooper: Anette Valente RDCS (AE) Indications: Bacteremia R/O endocarditis Other Information Study Quality: Fair. Technically limited study due to body habitus, inability to position patient exa m done bedside supine. Conclusion Technically difficult but adequate study Normal left ventricular wall thickness and chamber size. Estimated ejection fraction is 55%. Wall m otion is normal Right ventricle appears grossly normal in size and systolic function The atria are normal in size Aortic valve is sclerotic without stenosis or regurgitation Mildly thickened mitral leaflets with trace regurgitation Normal tricuspid valve with trace to mild regurgitation Mildly dilated ascending aorta Wall motion Left Ventricle The left ventricle is normal size. The left ventricular systolic function is normal. The left ventric ular ejection fraction is within the normal range. There is normal left ventricular wall thickness. T here is normal LV segmental wall motion. There is no ventricular septal defect visualized. LVEF is 55 %. Right Ventricle Right ventricle is grossly normal in size. Right ventricular systolic function is grossly normal. The RVSP is 39.5 mmHg. Atria The left atrium size is normal. The right atrium size is normal. The interatrial septum is intact wit h no evidence for an atrial septal defect. Aortic Valve The Aortic valve is sclerotic. Aortic valve is trileaflet. There is no aortic valvular stenosis. No a ortic regurgitation is present. Mitral Valve Mitral valve leaflets are mildly thickened. No evidence of mitral valve stenosis. Trace mitral regurg itation. Tricuspid Valve The tricuspid valve is normal in structure. There is no tricuspid valve stenosis. Trace to mild tricu spid regurgitation. Pulmonic Valve Pulmonic valve is not well visualized. There is no pulmonic valvular stenosis. There is no pulmonic v alvular regurgitation. Great Vessels The aortic root is normal in size. The ascending aorta is mildly dilated. Aortic arch is not visualiz ed. IVC is normal in size and collapses >50% with inspiration. Pericardium There is no pericardial effusion. 2D Dimensions IVSD d PLAX 0.81 cm M: 0.6-1.2 LV Vol A2C d MOD 171.6 mL LVPW d PLAX 0.84 cm M: 0.6 - 1.2 LV Vol A4C d MOD 174.6 mL LVID d PLAX 5.37 cm M: 4.2 - 5.8 LA vol/ BSA A2C s A-L 24.2 mL/m2 LVDs 3.80 cm M: 2.5 - 4.0 LA vol/ BSA A4C s A-L 23.9 mL/m2 Ao Root d 3.38 cm M: 3.1 - 3.7 LA Vol/ BSA Biplane s A-L 24.3 mL/m2 RA Area A4C 21.51 cm2 LA Area A4C s MOD 19.77 cm2 RA Vol/ BSA A4C s A-L 28.1 mL/m2 LA Area A2C s MOD 19.65 cm2 Ao Asc Diam d 3.59 cm M: 2.6 - 3.4 LV EF A4C MOD 55.7 % LV EF Teichholz 55.3 % LV EF A2C MOD 55.7 % LVEF (Manning's) 55.45 % M: 52 - 72 LV EF Biplane MOD 55.4 % LV Volume 122.97 mL M: 62 - 150 SV 96.19 mL LV Volume Index 51.45 mL/m2 M: 34 - 74 SV Index 40.18 mL/m2 LV Vol Biplane MOD 173.5 mL FS 29.05 % M-Mode TAPSE 3.62 cm (M/F) >1.7 LV Diastology MV E' medial 0.153 (>0.07 m/s) E/A Ratio 1.6 LV E/e MED 6.40 (<14) MV E Vmax 0.98 (0.4-1.3 m/s) MV E' lateral 0.196 (>0.1 m/s) MV A Vmax 0.60 (0.4-1.3 m/s) LV E/e LAT 5.00 (<14) MV E/A Ratio 1.62 MV E/E' medial 6.40 MV E/E' lateral 5.02 Aortic Valve LVOT Area 3.60 cm2 AoV Area Vmax 2.79 cm2 LVOT Vmax 1.22 m/s AoV Area/ BSA (Vmax) 1.16 cm2/m2 LVOT Mean Rakan. 0.89 m/s CATIE Mean Rakan. 2.83 cm2 LVOT Peak Grad 5.9 mmHg CATIE Mean Rakan. Index 1.18 cm2/m2 LVOT Mean Grad 3.5 mmHg LVOT VTI 0.191 m LVOT Diam s 2.10 cm AoV Vmax 1.57 m/s Velocity Ratio 0.77 AoV Mean Rakan. 1.13 m/s AoV Peak Grad 9.9 mmHg LVOT SV 68.94 mL AoV Mean Grad 5.6 mmHg AoV VTI 0.265 m AoV Area VTI 2.60 cm2 AoV Area/ BSA (VTI) 1.09 cm/m2 Mitral Valve MV DT 198 (160-240 msec) MV PHT 57 msec MV Area PHT 3.84 cm2 MV VTI 0.283 m MV Area VTI 2.44 (4.0-6.0 cm2) Pulmonary Valve PV Vmax 1.01 (0.5-1.5 m/s) RVOT Peak Gr. 2.41 mmHg PV Peak Grad 4.1 mmHg RVOT Mean Gr. 1.75 mmHg PV Mean Grad 2.8 mmHg RVOT VTI 0.187 m PV VTI 0.187 m RVOT Vmax 0.78 m/s Tricuspid Valve TR Peak Grad 36.4 mmHg TR Vmax 3.02 m/s RA Pressure 3.00 mmHg RVSP (TR) 39.5 mmHg
--- NOTE | 2021-12-11 13:10 | NUR.NOTE ---
Nursing Note: Bedside ultrasound echocardiogram in progress.
[2021-12-11] MEDS: MORPHine 4 MG/ML SYR IVP ×2 (14:03→22:24)
[2021-12-11] MEDS: Furosemide 20 MG/2 ML VIAL IVP (15:51)
[2021-12-11] MEDS: Polyethylene Glycol 3350 17 GM PACKET PO (16:08)
[2021-12-11] MEDS: Hyaluronidase 150 UNITS VIAL 15 UNITS ID (18:08)
[2021-12-11] MEDS: Sennosides/Docusate Sodium TAB 1 TAB PO (20:04)
[2021-12-11] MEDS: Insulin Glargine 300 UNITS/3 ML PEN SC (22:24)
[2021-12-12] VITALS (65 sets, daily range): BP systolic 111–138; BP diastolic 59–87; PULSE 68–126; RESP 15–28; TEMP 36–38; O2SAT 88–99
[2021-12-12] MEDS: Normal Saline Flush 10 ML SYR IVP ×3 (00:30→08:38)
[2021-12-12] MEDS: LORazepam 2 MG/ML VIAL 1 MG IVP ×3 (00:46→21:14)
[2021-12-12] MEDS: PIPERACILLIN/TAZO 4.5 GM in Normal Saline 100 ML IVPB ×2 (00:47→05:58)
[2021-12-12] MEDS: MORPHine 4 MG/ML SYR IVP ×2 (03:12→21:14)
[2021-12-12 06:33] LABS: Abs Immature Grans 0.11 10^3/uL (0.0-0.06); Absolute Basophil Count 0.03 10^3/uL (0.0-0.2); Absolute Eosinophil Count 0.14 10^3/uL (0.0-0.7); Absolute Lymphocyte Count 1.47 10^3/uL (1.2-3.4); Absolute Monocyte Count 1.06 10^3/uL (0.1-0.8); Absolute Neutrophil Count 6.56 10^3/uL (1.2-6.7); Basophils % 0.3; Eosinophils % 1.5; HCT 32.4 % (40.0-50.0); HGB 10.9 g/dL (13.5-17.5); Immature Grans % 1.2; Lymphocytes % 15.7; MCH 33.6 pg (27.0-33.0); MCHC 33.6 % (32.0-36.0); MPV 9.9 fL (8.0-11.0); Monocytes % 11.3; Nucleated RBC 0 %; Platelet Count 160 10^3/uL (130-400); RBC 3.24 10^6/uL (4.36-5.78); RDW 13.3 % (11.8-14.1); RDW-SD 49.4 fL; WBC 9.37 10^3/uL (4.4-10.8)
[2021-12-12 06:47] LABS: Anion Gap 8.7 mmol/L (3-11); BUN 20 mg/dL (7-18); CO2 26.3 mmol/L (21.0-32.0); CREATININE 0.9 mg/dL (0.70-1.30); Calcium 7.9 mg/dL (8.5-10.1); Chloride 106 mmol/L (98-107); Glucose 74 mg/dL (74-106); Potassium 3.7 mmol/L (3.5-5.1); Sodium 141 mmol/L (136-145)
[2021-12-12] MEDS: Dextrose 50%-Water 25 GM/50 ML SYR IVP (08:38)
--- NOTE | 2021-12-12 08:46 | CMPROGNOTE_ITS ---
- If Service Date Differs Date of service: 12/12/21 Time of Service: 08:46 Care Management Progress Note S/O:Vikas remains in the ICU although his status has been downgraded to Med/Surg. This morning he had another episode of shaking chills, similar to the one that occurred at about the same time yesterday. He was afebrile at the time. Three out of four blood cultures drawn on 12/09 and 12/10 are growing pasturella multocida, a gram negative coccobacillus commonly found in the orophaynx of healthy animals. CM attempted to meet with Vikas shortly after the episode of shaking chills but he was not coherent in his responses. He had been medicated with lorazepam a short while before. Vikas has been accepted in transfer to [facility] for tomorrow. He will be NPO after midnight tonight and will transport via ambulance for a 0600 arrival at [facility]. A: Vikas is a 71 year old man admitted om 12/10/21 with weakness and cellulitis P:Vikas will require short-term rehab before returning home and he is in agreement with this plan. He will follow up with his PCP, orthopedic surgeon, and plan of care as directed. He will either be transported by wheelchair van or ambulance when ready. CM will continue to support Vikas and any discharge planning needs.
--- NOTE | 2021-12-12 09:06 | W.PM.PROGNOT ---
Date of Service Date of service: 12/12/21 Time of Service: 09:06 Assessment and Plan Assessment and plan (1) Sepsis: Status: Acute Assessment and plan: Blood cultures growing Enterobacter cloacae and Pseudomonas, while his wound cultures are growing a mixture of gram negative and scant gram positive organisms. Will continue Zosyn and Vancomycin and consult w/ I.D. regarding optimum antibiotic coverage and duration of treatment, however given that he has a joint infection this will probably need 6 weeks of antibiotics. Final decision of antibiotic choice will depend on surgical wound culture identification and sensitivities. As for his sepsis, he is hemodynamically stable and can transfer to med/surg. I wrote for transfer yesterday. I will repeat his blood cultures today to see if he is clearing his bacteremia (2) Septic arthritis of ankle and foot region: Status: Acute Assessment and plan: as above. he may need another washout procedure but this will be decided by ortho (3) Cellulitis of right ankle: Status: Acute Assessment and plan: he has more than a cellulitis of his ankle. He has a culture proven septic joint. see above (4) Closed fracture dislocation of right ankle: Status: Acute Assessment and plan: Dr. Us is working w/ [facility] regarding transfer for definitive care which according to Dr. Us will involve intramedullary nailing of the calcaneus to the tibia w/ antibiotic coated nail. This will be done at [facility] when they have capacity to take him in transfer Qualifiers: Encounter type: initial encounter Qualified Code(s): S82.891A - Other fracture of right lower leg, initial encounter for closed fracture (5) Complication of external fixation device with internal components: Status: Acute Assessment and plan: as above (6) Hx of diabetes mellitus: Assessment and plan: because of recurrent hypoglycemia this morning I have dc his night time Lantus (he was only put on 5 untis but he is insulin naive). will continue coverage w/ low dose i.e. insulin sensitive sliding scale Novolog (7) Hypoglycemia: Status: Resolved Assessment and plan: as above. encourage increased po intake. I have added protein supplements to his diet and have requested that he be given bedtime snack w/ at leeast 30 gm of carbohydrates. (8) Generalized weakness: Status: Acute Assessment and plan: patient to remain non-weight bearing at this time until he has definitive procedure to stabilize the ankle. (9) Discharge planning issues: Status: Acute Assessment and plan: Plans for transfer to [facility] once a bed becomes available. Dr. Us is facilitating this transfer. Patient remains a full code per the patient's request. Further discharge planning will be decided upon upon discharge from [facility]. Anticipate he will need a prolonged long-term facility stay to rehabilitate from his injury and to complete antibiotic treatment of septic joint (10) DVT prophylaxis: Status: Acute Assessment and plan: As the patient is not going to have immediate surgery I have started him on enoxaparin 40 mg subcutaneously daily. However given his new onset afib, he should be considered for fdc anticoagulation w/ a DOAC. However since he will be having surgery in the next 1 to 2 days, I will keep him on lovenox. His [id number] is 2 which is moderate risk for thromboembolic events (2.2% annual risk (11) Atrial fibrillation: Status: Acute Assessment and plan: New onset atrial fibrillation. Will check TSH. Begin low-dose Lopressor. Continue Lovenox for now perioperatively but eventually patient should be put on a D.O.A.C. Subjective Subjective Interval history since last seen: POD#2 1.? Right ankle fracture dislocation revision external fixation: Removal calcaneus pin and placement of new metatarsal pads with manipulation and re? reduction of ankle 2.? Right ankle arthrotomy with joint irrigation and debridement 3.? Right calcaneus wound irrigation debridement: Skin, subcutaneous tissue, periosteum, and bone 4.? Right distal tibia wound irrigation debridement: Skin, subcutaneous tissue, and tendon Patient remains on Zosyn and Vancomycin for bacteremia and infected right ankle fracture dislocation. Blood cultures are growing Enterobacter cloacae and Pseudomonas aeruginosa however the ankle wound cultures is growing a mixture of scant gram positive organisms as well as gram negatives. Initially I was going to dc his Vancomycin and continue the Zosyn however I will keep the Vancomycin as well as the Zosyn pending identification and sensitivities of the wound culture. This morning his glucose dropped to 58. I have dc'ed his Lantus (was put on 5 units nightly). He is suppose to have at least 30 gm of CHO snack at bedtime. He will just be covered w/ insulin sensitive scale. Patient is now more alert since receiving D50. He has developed afib w/ rates in the 110's to 120's. No associated CP or dyspnea. He is complaining of lower back pain over the sacrum/buttocks Exam Narrative Exam Narrative: Obese white male lying in bed in semifowler position. Initially he was lethargic but after receiving an D50 and being given some food he ate including some oatmeal some scrambled eggs he is now more alert. Lungs are clear although diminished at the bases Heart: tachycardic and irregular Abdomen: a few faint bowel sounds; nontender, nondistended Extremities: right foot has a dressing in place. I will examine when nursing changes his dressing. toes are warm and normal pedal pulse. left foot is warm and normal pedal pulses Objective Last Vital Signs Temp 36.3 C L 12/12/21 04:58 Pulse 72 12/12/21 04:58 Resp 17 12/12/21 04:58 BP 135/70 12/12/21 04:58 Pulse Ox 94 12/12/21 08:10 Laboratory Results - last 24 hr 12/12/21 12/12/21 12/12/21 06:06 06:06 09:00 WBC 9.37 RBC 3.24 L Hgb 10.9 L Hct 32.4 L MCV 100.0 H MCH 33.6 H MCHC 33.6 RDW 13.3 Plt Count 160 MPV 9.9 Immature Gran % 1.2 Neutrophils % 70.0 Lymphocytes % 15.7 Monocytes % 11.3 Eosinophils % 1.5 Basophils % 0.3 Nucleated RBC % 0 Absolute Neutrophils 6.56 Absolute Lymphocytes 1.47 Absolute Monocytes 1.06 H Absolute Eosinophils 0.14 Absolute Basophils 0.03 Sodium 141 Potassium 3.7 Chloride 106 Carbon Dioxide 26.3 Anion Gap 8.7 BUN 20 H Creatinine 0.9 Estimated GFR/1.73 m2 >= 60.00 Glucose 74 D Calcium 7.9 L Vancomycin Trough Cancelled
--- NOTE | 2021-12-12 09:15 | RT.EKG_ITS ---
APPROVED REPORT Exam: Resting ECG Reason for Exam: A-fib Patient Location: I HR:116 bpm ECG Measurements Heart Rate 116 AXIS WI [id number] P [id number] QRSd 85 QRS -18 QT 345 T 15 QTc 480 Conclusion Atrial fibrillation...V-rate 73-140, irreg A-activity Borderline left axis deviation...QRS axis (-15,-29) Low voltage, precordial leads...precordial leads <1.0mV
[2021-12-12] MEDS: Enoxaparin 40 MG/0.4 ML SYR SC (09:29)
[2021-12-12] MEDS: Sennosides/Docusate Sodium TAB 1 TAB PO ×2 (09:29→20:08)
[2021-12-12] MEDS: Acetaminophen 325 MG TAB 650 MG PO ×2 (09:30→15:25)
[2021-12-12] MEDS: Polyethylene Glycol 3350 17 GM PACKET PO (09:30)
[2021-12-12 09:36] LABS: Lab Add On Test DONE
[2021-12-12] MEDS: Zinc Sulfate 220 MG TAB PO (09:59)
[2021-12-12] MEDS: Metoprolol 12.5 MG TAB PO ×4 (10:00→20:09)
[2021-12-12] MEDS: Protein Nutritional Supplement 16 GM 1 OUNCE PACKET PO ×3 (10:00→20:09)
[2021-12-12] MEDS: Multivitamin TAB 1 TAB PO (10:00)
[2021-12-12 10:07] LABS: FREE T4 0.93 ng/dL (0.76-1.46); Magnesium 2.2 mg/dL (1.8-2.4); TSH 8.02 uIU/mL (0.36-3.74)
[2021-12-12 10:55] LABS: Folate 8.3 ng/mL (8.6-20.0); Vancomycin, Trough 9.2 ug/mL (10.0-20.0); Vitamin B12 1842 pg/mL (193-986)
[2021-12-12] MEDS: VANCOMYCIN/WATER (PEG) 1.5 GM/300 ML BAG IV (11:24)
[2021-12-12] MEDS: Normal Saline 500 ML 10 ML IV (11:28)
--- NOTE | 2021-12-12 12:13 | W.INDIABCONS ---
Date of service: 12/12/21 Time of Service: 12:13 Diabetes Inpatient Consult Reason for Visit: Consult request for diabetes and nutrition DESCRIPTION/ASSESSMENT: Mr. Regan is here s/p falls after recent orthopedic surgery. He has wound healing needs as well and went to the OR yesterday which included debridement of the wounds in his foot. He is 180 cm and 124.5 kg today. His BMI is 36.2 kg/m2 c/w class 2 obesity. His weight is up 7.5 kg from yesterday which may be related to getting fluids for surgery or it may just be an outlier. Prior to today his weight has been stable. Blood sugars are now at target. He gets aspart correction while here. He is on consistent carbohydrate diet. He gets 1 oz. liquid protein, tid, MVI and Zinc INTERVENTION: Would continue with current diet and liquid protein, MVI, and zinc. Will follow up with patient prior to discharge to see what he needs with regard to diabetes education. Will check in with patient now to see if he is amenable to Glucerna supplements to help him increase calories and protein. PLAN: Will follow weight, PO, blood sugars. Will evaluate nutrition care plan ongoing and adjust as needed. Time Spent in Nutritional Counseling and Treatment: 0
[2021-12-12] MEDS: oxyCODONE 5 mg/Acetaminophen 325 mg TAB 1 TAB PO (15:24)
--- NOTE | 2021-12-12 15:46 | W.PM.PROGNOT ---
Date of Service Date of service: 12/12/21 Time of Service: 15:30 Assessment and Plan Assessment and plan (1) Septic arthritis of ankle and foot region: Status: Acute Assessment and plan: Vikas is a 71-year-old who has sepsis, likely from his right ankle. His blood cultures are growing Pasteurella while his ankle cultures are growing Enterobacter cloacae as well as Pseudomonas aeruginosa. There also are some mixed ramirez which are growing but have yet to speciate. He is currently on Primaxin and vancomycin although I suspect vancomycin would not be necessary as typically MRSA would out compete the other organism on culture. He was washed out by Dr. Evangelista on the 10 December. I would recommend a secondary washout but he is planning to go to [facility] tomorrow for surgical treatment of his unstable ankle fracture dislocation as well as the infection. We will continue with the antibiotics while he is here and await their infectious disease input when he is to [facility]. N.p.o. after midnight. Normal saline 80 cc an hour after midnight. Oxygen titrated to keep sats above 90%. Sliding scale insulin. (2) Closed fracture dislocation of right ankle: Status: Acute Assessment and plan: Stable in the external fixator. Awaiting transfer to [facility]. Qualifiers: Encounter type: initial encounter Qualified Code(s): S82.891A - Other fracture of right lower leg, initial encounter for closed fracture Subjective Subjective Interval history since last seen: Vikas reports to be doing okay. Nursing said that he had some confusion earlier today. He was hyperglycemic and he was given glucose to correct this. He has been quite sleepy but does arouse. Nursing staff reports a T-max of 38.0. Dr. Thao did switch his Zosyn to Primaxin. He has continue with vancomycin as there is gram-positive cocci seen on one of the cultures. There is also with reports of rigors x1 during the day which responds well to the cooling blanket. No reported drainage from the wounds. Dressing change to be performed this afternoon. Heart rate still irregular with the new onset of atrial fibrillation. No acute concerns reported by Vikas. Awaiting transfer to [facility] tomorrow for surgical intervention further management. Exam Const General: comfortable Nutritional Appearance: well nourished Orientation: alert (Although take some stimulus to respond), oriented to person and oriented to place Extrem Other: Right lower extremity external fixator is in good position. The foot is appropriately inverted without any lateral displacement suggesting redislocation. Erythema has receded significantly. There is a defect over the medial ankle with a 1 and half centimeter skin bridge which is left intact for skin tensioning although probably not viable. There is a loss of deeper tissue in this area overlying the medial tibia but no gross purulence is seen today. Dressing change being completed by nursing staff. Objective Last Vital Signs Temp 38.0 C H 12/12/21 14:54 Pulse 89 12/12/21 14:01 Resp 16 12/12/21 15:30 BP 111/66 12/12/21 14:01 Pulse Ox 94 12/12/21 15:30 Laboratory Results - last 24 hr 12/12/21 12/12/21 12/12/21 06:06 06:06 06:06 WBC 9.37 RBC 3.24 L Hgb 10.9 L Hct 32.4 L MCV 100.0 H MCH 33.6 H MCHC 33.6 RDW 13.3 Plt Count 160 MPV 9.9 Immature Gran % 1.2 Neutrophils % 70.0 Lymphocytes % 15.7 Monocytes % 11.3 Eosinophils % 1.5 Basophils % 0.3 Nucleated RBC % 0 Absolute Neutrophils 6.56 Absolute Lymphocytes 1.47 Absolute Monocytes 1.06 H Absolute Eosinophils 0.14 Absolute Basophils 0.03 Sodium 141 Potassium 3.7 Chloride 106 Carbon Dioxide 26.3 Anion Gap 8.7 BUN 20 H Creatinine 0.9 Estimated GFR/1.73 m2 >= 60.00 Glucose 74 D Calcium 7.9 L Magnesium 2.2 Vitamin B12 Folate TSH 8.02 H Free T4 0.93 Vancomycin Trough Add-On Test Request DONE 12/12/21 12/12/21 12/12/21 06:06 09:00 10:08 WBC RBC Hgb Hct MCV MCH MCHC RDW Plt Count MPV Immature Gran % Neutrophils % Lymphocytes % Monocytes % Eosinophils % Basophils % Nucleated RBC % Absolute Neutrophils Absolute Lymphocytes Absolute Monocytes Absolute Eosinophils Absolute Basophils Sodium Potassium Chloride Carbon Dioxide Anion Gap BUN Creatinine Estimated GFR/1.73 m2 Glucose Calcium Magnesium Vitamin B12 1842 H Folate 8.3 L TSH Free T4 Vancomycin Trough Cancelled 9.2 L Add-On Test Request DONE
[2021-12-12] MEDS: IMIPENEM/CILASTATIN 1,000 MG in Normal Saline 250 ML 250 MG IVPB (16:09)
--- NOTE | 2021-12-12 16:47 | DSE_ITS ---
DS: Diagnosis Discharge Diagnosis (1) Sepsis: Status: Acute Asessment and Plan: Awaiting new blood cultures. 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 Currently on Primaxin. (2) Septic arthritis of ankle and foot region: Status: Acute Asessment and Plan: Status post I&D on December 10. Packing to the medial ankle. Currently on an tibiotics. Awaiting secondary procedure by [facility] orthopedics. (3) Cellulitis of right ankle: Status: Acute Asessment and Plan: Improving with the treatment for the above septic arthritis. (4) Closed fracture dislocation of right ankle: Status: Acute Asessment and Plan: Stable in external fixator. After long discussion with [facility] orthopedics and Dr. Caballero of trauma, the best procedure would likely be intramedullary fixation for added stability and also treat the ongoing infection. He is currently arranged to be transported to the day surgery unit at [facility] by 6 AM tomorrow for surgery and further management. (5) Complication of external fixation device with internal components: Status: Acute Asessment and Plan: Calcaneal pin was removed and he now has pins within the first metatarsal. (6) Hx of diabetes mellitus: Asessment and Plan: Labile blood sugars. Continue to treat with sliding scale insulin. (7) Hypoglycemia: Status: Resolved Asessment and Plan: Continue to monitor blood sugars and treat appropriately. (8) Generalized weakness: Status: Acute (9) Discharge planning issues: Status: Acute (10) DVT prophylaxis: Status: Acute Asessment and Plan: Lovenox 40 mg subcu (11) Atrial fibrillation: Status: Acute Asessment and Plan: Metoprolol 12.5 4 times daily. Would likely need long-term anticoagulation after upcoming surgery. Discharge Plan Disposition Patient Disposition: [facility] Condition: Stable Discharge Details Reason For Visit: Septic Right Ankle, Right Ankle Fracture Dislocati Admit Date/Time: 12/10/21 07:35 Admit Provider: Freddy Sanchez Attending Provider: Sj Us Primary Care Provider: Andre Aguilar [facility] Course Hospital Course: Vikas was seen in the emergency department on December 09. He was transferred from [facility] with concern for infection about the right leg. He was evaluated by Dr. Evangelista where there is infection noted about the right leg as well as recurrent dislocation of the right ankle joint. The exfix was bent and he had been walking on it. He was also hypoglycemic at the time of admission and given his labile blood sugars and poor health, he was admitted to the medicine service. On hospital day #1 he decompensated slightly requiring fluid administration and brief volume resuscitation. His lactate was elevated initially but trended down. He was started on broad-spectrum antibiotics. Blood cultures were obtained and they are now growing Pasteurella multocida, and sensitive. Blood cultures obtained on 12/12/2021 are still pending. His central line was removed due to the positive blood cultures. He was taken to the operating room on December 10 for irrigation debridement and reduction of the ankle fracture. The calcaneal pin was noted to be bent and eroded through a portion of the calcaneus. There is gross purulence seen within the calcaneus and tracking of the medial aspect of the ankle involving the ankle joint. There was thinning of the skin over the medial aspect of the ankle where it appeared to be nonviable although bridge remain. There is tracking of pus of the medial aspect of the ankle and into the ankle joint with no appreciable deltoid ligament seen by Dr. Evangelista. The wound was thoroughly irrigated. Some packing was placed in the medial soft tissues. The reduction was obtained although was extremely challenging to hold the reduction. The distal pins of the act 6 were placed into the first metatarsal which has been able to hold the reduction. Dressing changes were performed on December 12 where there was noted to be this defect over the medial aspect the ankle. However, minimal gross purulence. No significant erythema. Cultures from the surgical procedure are growing Pseudomonas as well as Enterobacter cloacae. There is some mixed ramirez as well was seen. He did have some low-grade fevers on POD #2 and given the EMILY for the bacteria, was switched from Zosyn to Primaxin. During his hospital admission he did develop atrial fibrillation. His rate has been in the low 100s. EKG confirmed this. He was started on metoprolol. He has been having episodes of waxing alertness. He does seem to respond to stimuli quite well and answers questions appropriately but has been very sleepy and tired. He has had episodes of hypoglycemia as well which is why his home medications of glipizide and Metformin were held. He was started on Lovenox prophylactic dose in preparation of upcoming surgery rather than placing him on a therapeutic dose of anticoagulation with his new onset atrial fibrillation. His diabetes have been quite labile and therefore he was managed with a sliding scale insulin. Home Meds and New Rx's Prescriptions: New multivitamin [Multiple Vitamins] Tablet 1 tab PO DAILY Qty: 0 0RF polyethylene glycol 3350 17 gram Powder In Packet 17 g PO DAILY Qty: 0 0RF imipenem-cilastatin 500 mg Recon Soln 1,000 mg IVPB Q8H Qty: 0 0RF sennosides-docusate sodium [Colace 2-In-1] 8.6-50 mg Tablet 1 tab PO BID Qty: 0 0RF Phlexy-Vits Powder In Packet 1 oz PO TID Qty: 0 0RF sodium chloride 0.9 % (flush) [BD PosiFlush Normal Saline 0.9] Syringe 1 ml IVP PRN PRNQty: 0 0RF insulin aspart U-100 [Novolog Flexpen U-100 Insulin] 100 unit/mL (3 mL) Insulin Pen 0 - 9 units subcut 0800,1200,1700,2200 Qty: 0 0RF metoprolol tartrate 25 mg Tablet 12.5 mg PO QID Qty: 0 0RF zinc sulfate [Zinc-220] 50 mg zinc (220 mg) Capsule 220 mg PO DAILY Qty: 0 0RF Continued acetaminophen 500 mg tablet 500 mg PO Q6H PRN (Reason: fever) Qty: 90 0RF oxycodone-acetaminophen [Percocet] 5-325 mg tablet 1 tab PO Q6H MDD 4 tabs PRN (Reason: pain, moderate) Qty: 18 0RF Rx Instructions: Take with Food, no driving or operating heavy machinery. metformin 1,000 mg Tablet 1,000 mg PO BID 0RF Discontinued celecoxib 200 mg capsule 200 mg PO BID Qty: 60 0RF glipizide 10 mg tablet extended release 24hr 10 mg PO DAILY 0RF Label Comments: TAKE 1 TABLET BY MOUTH ONCE DAILY IN THE MORNING aspirin 81 mg tablet,delayed release (DR/EC) 81 mg PO BID Qty: 60 0RF Discharge Instructions Additional Instructions: Discharge to the day surgery unit at [facility]. He will be admitted to the orthopedic service to Dr. Caballero. Initial dressings in place until further instructions from [facility] orthopedic team. Transfer with IV fluids, normal saline, running at 80 cc/hr. oxygen only if necessary to maintain saturation greater than 90%. Activity:: Keep right lower extremit Diet:: Carb Counting Discharge Orders Discharge Orders: Discharge Order (Routine); Ordered 12/13/21 Ordered By: Sj Us DS: Summary Time Spent with Patient providing and/or coordinating discharge services: Less than 30 minutes Status at Discharge Functional status at discharge: bed bound Overall status at discharge: patient is not back to baseline Mental Status: other (Somewhat sleep and difficult to arouse) Speech and Movement: speech and movement normal Mood: congruent mood and other (Somewhat sleep and difficult to arouse) Affect: normal affect Exam Narrative Exam Narrative: Resting in the hospital bed. He has his eyes closed but responds to stimuli. He answers questions appropriately. He is alert and oriented to person and place. Head is normocephalic and atraumatic. Extrem Other: Right lower extremity is in an external fixator. The foot appears appropriately inverted without any lateral dislocation. There is a defect of the medial aspect the ankle approximately 3 x 3 cm with a small skin bridge in between which is of question of viability. Packing was removed. There was some minimal purulence in this area. Erythema has receded significantly. Skin has wrinkles. Swelling is down. The wound was repacked. Pin sites appear clean without any purulence. Psych Mental Status: other (Somewhat sleep and difficult to arouse) Speech and Movement: speech and movement normal Mood: congruent mood and other (Somewhat sleep and difficult to arouse) Affect: normal affect DS: Data Vitals/I&O Vitals and I&O: Vital Signs Temperature 38.0 C H 12/12/21 14:54 Temperature Source Tympanic 12/12/21 14:54 Pulse 89 12/12/21 14:01 Pulse Rhythm Regular 12/12/21 08:00 Pulse 95 H 12/12/21 15:30 Respiratory Rate 16 12/12/21 15:30 Respiratory Effort 12/12/21 08:00 Respiratory Depth Normal 12/12/21 08:00 Respiratory Pattern Normal 12/12/21 08:00 Blood Pressure 111/66 12/12/21 14:01 Blood Pressure Mean 75 12/12/21 14:01 Blood Pressure Position Supine 12/11/21 04:15 Pulse Oximetry 94 12/12/21 15:30 Oxygen Delivery Method Nasal Cannula 12/12/21 08:10 Oxygen Flow Rate 4 12/12/21 08:10 Pain Level 2 12/12/21 10:00 Comment 12/09/21 21:06 Intake & Output 12/11/21 12/12/21 12/12/21 23:59 11:59 23:59 Intake Total 2021 / 3561.833 995 / 1415 420 / 1415 Output Total 1775 / 2375 350 / 900 550 / 900 Balance 246 / 1186.833 645 / 515 -130 / 515 Weight 124.5 kg Intake: IV 1721 / 2901.833 200 / 500 300 / 500 Oral 300 / 660 795 / 915 120 / 915 Output: Urine 1775 / 2375 350 / 900 550 / 900 Other: Urine Color Light Hina Thayer Dark Hina Urine Appearance Clear Clear Data Completed and Pending Labs on day of discharge: Labs from last 24 hours 12/12/21 12/12/21 12/12/21 10:08 09:00 06:06 WBC RBC Hgb Hct MCV MCH MCHC RDW Plt Count MPV Immature Gran % Neutrophils % Lymphocytes % Monocytes % Eosinophils % Basophils % Nucleated RBC % Absolute Neutrophils Absolute Lymphocytes Absolute Monocytes Absolute Eosinophils Absolute Basophils Sodium Potassium Chloride Carbon Dioxide Anion Gap BUN Creatinine Estimated GFR/1.73 m2 Glucose Calcium Magnesium Prealbumin Pending Vitamin B12 1842 H Folate 8.3 L TSH Free T4 Vancomycin Trough 9.2 L Cancelled Add-On Test Request 12/12/21 12/12/21 12/12/21 06:06 06:06 06:06 WBC 9.37 RBC 3.24 L Hgb 10.9 L Hct 32.4 L MCV 100.0 H MCH 33.6 H MCHC 33.6 RDW 13.3 Plt Count 160 MPV 9.9 Immature Gran % 1.2 Neutrophils % 70.0 Lymphocytes % 15.7 Monocytes % 11.3 Eosinophils % 1.5 Basophils % 0.3 Nucleated RBC % 0 Absolute Neutrophils 6.56 Absolute Lymphocytes 1.47 Absolute Monocytes 1.06 H Absolute Eosinophils 0.14 Absolute Basophils 0.03 Sodium Potassium Chloride Carbon Dioxide Anion Gap BUN Creatinine Estimated GFR/1.73 m2 Glucose Calcium Magnesium Prealbumin Vitamin B12 Folate TSH Free T4 Vancomycin Trough Add-On Test Request DONE DONE 12/12/21 06:06 WBC RBC Hgb Hct MCV MCH MCHC RDW Plt Count MPV Immature Gran % Neutrophils % Lymphocytes % Monocytes % Eosinophils % Basophils % Nucleated RBC % Absolute Neutrophils Absolute Lymphocytes Absolute Monocytes Absolute Eosinophils Absolute Basophils Sodium 141 Potassium 3.7 Chloride 106 Carbon Dioxide 26.3 Anion Gap 8.7 BUN 20 H Creatinine 0.9 Estimated GFR/1.73 m2 >= 60.00 Glucose 74 D Calcium 7.9 L Magnesium 2.2 Prealbumin Vitamin B12 Folate TSH 8.02 H Free T4 0.93 Vancomycin Trough Add-On Test Request 12/12/21 08:17 Blood Blood Culture - Pending 12/12/21 08:04 Blood Blood Culture - Pending 12/10/21 14:50 Ankle - Right Anaerobic Culture - Pending 12/10/21 14:50 Ankle - Right Anaerobic Culture - Pending Preliminary micro results at discharge 12/09/21 17:15 Blood Culture - Preliminary Blood Pasteurella Multocida 12/09/21 22:20 Wound Culture - Preliminary Ankle - Right Enterobacter Cloacae Complex Gram Negative Cocco Bacillus Pseudomonas aeruginosa Normal Ramirez 12/12/21 08:17 Blood Culture - Pending Blood 12/12/21 08:04 Blood Culture - Pending Blood 12/09/21 17:55 Blood Culture - Preliminary Blood NO GROWTH 48 HOURS 12/10/21 14:50 Anaerobic Culture - Pending Ankle - Right 12/10/21 14:50 Anaerobic Culture - Pending Ankle - Right PFSH All Active Problems Atrial fibrillation (Acute) Septic arthritis of ankle and foot region (Acute) DVT prophylaxis (Acute) Discharge planning issues (Acute) Sepsis (Acute) Cellulitis of right ankle (Acute) Complication of external fixation device with internal components (Acute) Noncompliance (Acute) Fall at home (Acute) Generalized weakness (Acute) Closed fracture dislocation of right ankle (Acute 11/22/21) Medical History History of COVID-19 Hx of diabetes mellitus Surgical History Hx of eye surgery right eye trauma; blindness at present Hx of knee surgery left Hx of shoulder surgery left Social History Smoking/Tobacco Use Status: Never Smoking risk assessment performed?: Yes Alcohol Intake: never Drug use: Never Substance use type: does not use Do you feel safe at home: Yes Do you feel safe in your relationship?: Yes
[2021-12-12] MEDS: Ketorolac 15 MG/ML VIAL IVP (20:08)
[2021-12-12] MEDS: Insulin Aspart 300 UNITS/3 ML PEN SC (21:36)
[2021-12-13] VITALS (16 sets, daily range): BP systolic 118–131; BP diastolic 69–86; PULSE 71–86; RESP 15–20; TEMP 36.5; O2SAT 92–99
[2021-12-13] MEDS: IMIPENEM/CILASTATIN 1,000 MG in Normal Saline 250 ML 250 MG IVPB (00:05)
[2021-12-13] MEDS: VANCOMYCIN/WATER (PEG) 1.5 GM/300 ML BAG IV (01:20)
--- NOTE | 2021-12-13 05:59 | W.PM.DS.N ---
DS: Diagnosis Discharge Diagnosis (1) Septic arthritis of ankle and foot region: Status: Acute (2) Closed fracture dislocation of right ankle: Status: Acute (3) Atrial fibrillation: Status: Acute (4) Sepsis: Status: Acute Discharge Plan Disposition Patient Disposition: [facility] Condition: Stable Discharge Details Reason For Visit: Septic Right Ankle, Right Ankle Fracture Dislocati Admit Date/Time: 12/10/21 07:35 Admit Provider: Freddy Sanchez Attending Provider: Sj Us Primary Care Provider: Andre Aguilar Hospital Course Hospital Course: Vikas was seen in the emergency department on December 09. He was transferred from [facility] with concern for infection about the right leg. He was evaluated by Dr. Evangelista where there is infection noted about the right leg as well as recurrent dislocation of the right ankle joint. The exfix was bent and he had been walking on it. He was also hypoglycemic at the time of admission and given his labile blood sugars and poor health, he was admitted to the medicine service. On hospital day #1 he decompensated slightly requiring fluid administration and brief volume resuscitation. His lactate was elevated initially but trended down. He was started on broad-spectrum antibiotics. Blood cultures were obtained and they are now growing Pasteurella multocida, and sensitive. Blood cultures obtained on 12/12/2021 are still pending. His central line was removed due to the positive blood cultures. He was taken to the operating room on December 10 for irrigation debridement and reduction of the ankle fracture. The calcaneal pin was noted to be bent and eroded through a portion of the calcaneus. There is gross purulence seen within the calcaneus and tracking of the medial aspect of the ankle involving the ankle joint. There was thinning of the skin over the medial aspect of the ankle where it appeared to be nonviable although bridge remain. There is tracking of pus of the medial aspect of the ankle and into the ankle joint with no appreciable deltoid ligament seen by Dr. Evangelista. The wound was thoroughly irrigated. Some packing was placed in the medial soft tissues. The reduction was obtained although was extremely challenging to hold the reduction. The distal pins of the act 6 were placed into the first metatarsal which has been able to hold the reduction. Dressing changes were performed on December 12 where there was noted to be this defect over the medial aspect the ankle. However, minimal gross purulence. No significant erythema. Cultures from the surgical procedure are growing Pseudomonas as well as Enterobacter cloacae. There is some mixed ramirez as well was seen. He did have some low-grade fevers on POD #2 and given the EMILY for the bacteria, was switched from Zosyn to Primaxin. During his hospital admission he did develop atrial fibrillation. His rate has been in the low 100s. EKG confirmed this. He was started on metoprolol. He has been having episodes of waxing alertness. He does seem to respond to stimuli quite well and answers questions appropriately but has been very sleepy and tired. He has had episodes of hypoglycemia as well which is why his home medications of glipizide and Metformin were held. He was started on Lovenox prophylactic dose in preparation of upcoming surgery rather than placing him on a therapeutic dose of anticoagulation with his new onset atrial fibrillation. His diabetes have been quite labile and therefore he was managed with a sliding scale insulin. Home Meds and New Rx's Prescriptions: New multivitamin [Multiple Vitamins] Tablet 1 tab PO DAILY Qty: 0 0RF polyethylene glycol 3350 17 gram Powder In Packet 17 g PO DAILY Qty: 0 0RF imipenem-cilastatin 500 mg Recon Soln 1,000 mg IVPB Q8H Qty: 0 0RF sennosides-docusate sodium [Colace 2-In-1] 8.6-50 mg Tablet 1 tab PO BID Qty: 0 0RF Phlexy-Vits Powder In Packet 1 oz PO TID Qty: 0 0RF sodium chloride 0.9 % (flush) [BD PosiFlush Normal Saline 0.9] Syringe 1 ml IVP PRN PRNQty: 0 0RF insulin aspart U-100 [Novolog Flexpen U-100 Insulin] 100 unit/mL (3 mL) Insulin Pen 0 - 9 units subcut 0800,1200,1700,2200 Qty: 0 0RF metoprolol tartrate 25 mg Tablet 12.5 mg PO QID Qty: 0 0RF zinc sulfate [Zinc-220] 50 mg zinc (220 mg) Capsule 220 mg PO DAILY Qty: 0 0RF Continued acetaminophen 500 mg tablet 500 mg PO Q6H PRN (Reason: fever) Qty: 90 0RF oxycodone-acetaminophen [Percocet] 5-325 mg tablet 1 tab PO Q6H MDD 4 tabs PRN (Reason: pain, moderate) Qty: 18 0RF Rx Instructions: Take with Food, no driving or operating heavy machinery. metformin 1,000 mg Tablet 1,000 mg PO BID 0RF Discontinued celecoxib 200 mg capsule 200 mg PO BID Qty: 60 0RF glipizide 10 mg tablet extended release 24hr 10 mg PO DAILY 0RF Label Comments: TAKE 1 TABLET BY MOUTH ONCE DAILY IN THE MORNING aspirin 81 mg tablet,delayed release (DR/EC) 81 mg PO BID Qty: 60 0RF Discharge Instructions Additional Instructions: Discharge to the day surgery unit at [facility]. He will be admitted to the orthopedic service to Dr. Caballero. Initial dressings in place until further instructions from [facility] orthopedic team. Transfer with IV fluids, normal saline, running at 80 cc/hr. oxygen only if necessary to maintain saturation greater than 90%. Activity:: Keep right lower extremit Diet:: Carb Counting Discharge Orders Discharge Orders: Discharge Order (Routine); Ordered 12/13/21 Ordered By: Sj Us DS: Summary Time Spent with Patient providing and/or coordinating discharge services: Less than 30 minutes Status at Discharge Functional status at discharge: bed bound Overall status at discharge: patient is not back to baseline Mental Status: mental status grossly normal Speech and Movement: speech and movement normal Mood: congruent mood Affect: normal affect Exam Psych Mental Status: mental status grossly normal Speech and Movement: speech and movement normal Mood: congruent mood Affect: normal affect DS: Data Vitals/I&O Vitals and I&O: Vital Signs Temperature 36.5 C 12/13/21 05:33 Temperature Source Temporal Artery Scan 12/13/21 05:33 Pulse 79 12/13/21 05:33 Pulse Rhythm Irregular 12/13/21 01:51 Pulse 86 12/13/21 05:00 Respiratory Rate 17 12/13/21 05:33 Respiratory Effort 12/13/21 01:51 Respiratory Depth Normal 12/13/21 01:51 Respiratory Pattern Normal 12/13/21 01:51 Blood Pressure 118/69 12/13/21 05:33 Blood Pressure Mean 80 12/13/21 04:01 Blood Pressure Position Supine 12/11/21 04:15 Pulse Oximetry 94 12/13/21 05:33 Oxygen Delivery Method Nasal Cannula 12/13/21 05:33 Oxygen Flow Rate 4 12/13/21 05:33 Pain Level 0 12/13/21 05:33 Comment 12/09/21 21:06 Intake & Output 12/12/21 12/12/21 12/13/21 11:59 23:59 11:59 Intake Total 995 / 1700.333 705.333 / 1700.333 550 / 550 Output Total 350 / 1250 900 / 1250 350 / 350 Balance 645 / 450.333 -194.667 / 450.333 200 / 200 Weight 124.5 kg Intake: IV 200 / 785.333 585.333 / 785.333 550 / 550 Oral 795 / 915 120 / 915 Output: Urine 350 / 1250 900 / 1250 350 / 350 Other: Urine Color [place] Light [place] Urine Appearance Clear Clear Clear Data Completed and Pending Labs on day of discharge: Labs from last 24 hours 12/13/21 12/12/21 12/12/21 05:35 10:08 09:00 WBC Pending RBC Pending Hgb Pending Hct Pending MCV Pending MCH Pending MCHC Pending RDW Pending Plt Count Pending MPV Pending Immature Gran % Pending Neutrophils % Pending Lymphocytes % Pending Monocytes % Pending Eosinophils % Pending Basophils % Pending Nucleated RBC % Absolute Neutrophils Pending Absolute Lymphocytes Pending Absolute Monocytes Pending Absolute Eosinophils Pending Absolute Basophils Pending Sodium Potassium Chloride Carbon Dioxide Anion Gap BUN Creatinine Estimated GFR/1.73 m2 Glucose Calcium Magnesium Prealbumin Vitamin B12 1842 H Folate 8.3 L TSH Free T4 Vancomycin Trough 9.2 L Cancelled Add-On Test Request 12/12/21 12/12/21 12/12/21 06:06 06:06 06:06 WBC RBC Hgb Hct MCV MCH MCHC RDW Plt Count MPV Immature Gran % Neutrophils % Lymphocytes % Monocytes % Eosinophils % Basophils % Nucleated RBC % Absolute Neutrophils Absolute Lymphocytes Absolute Monocytes Absolute Eosinophils Absolute Basophils Sodium Potassium Chloride Carbon Dioxide Anion Gap BUN Creatinine Estimated GFR/1.73 m2 Glucose Calcium Magnesium Prealbumin Pending Vitamin B12 Folate TSH Free T4 Vancomycin Trough Add-On Test Request DONE DONE 12/12/21 12/12/21 06:06 06:06 WBC 9.37 RBC 3.24 L Hgb 10.9 L Hct 32.4 L MCV 100.0 H MCH 33.6 H MCHC 33.6 RDW 13.3 Plt Count 160 MPV 9.9 Immature Gran % 1.2 Neutrophils % 70.0 Lymphocytes % 15.7 Monocytes % 11.3 Eosinophils % 1.5 Basophils % 0.3 Nucleated RBC % 0 Absolute Neutrophils 6.56 Absolute Lymphocytes 1.47 Absolute Monocytes 1.06 H Absolute Eosinophils 0.14 Absolute Basophils 0.03 Sodium 141 Potassium 3.7 Chloride 106 Carbon Dioxide 26.3 Anion Gap 8.7 BUN 20 H Creatinine 0.9 Estimated GFR/1.73 m2 >= 60.00 Glucose 74 D Calcium 7.9 L Magnesium 2.2 Prealbumin Vitamin B12 Folate TSH 8.02 H Free T4 0.93 Vancomycin Trough Add-On Test Request 12/12/21 08:17 Blood Blood Culture - Pending 12/12/21 08:04 Blood Blood Culture - Pending 12/10/21 14:50 Ankle - Right Anaerobic Culture - Pending 12/10/21 14:50 Ankle - Right Anaerobic Culture - Pending Preliminary micro results at discharge 12/09/21 17:55 Blood Culture - Preliminary Blood NO GROWTH 72 HOURS 12/09/21 17:15 Blood Culture - Preliminary Blood Pasteurella Multocida 12/09/21 22:20 Wound Culture - Preliminary Ankle - Right Enterobacter Cloacae Complex Gram Negative Cocco Bacillus Pseudomonas aeruginosa Normal Ramirez 12/12/21 08:17 Blood Culture - Pending Blood 12/12/21 08:04 Blood Culture - Pending Blood 12/10/21 14:50 Anaerobic Culture - Pending Ankle - Right 12/10/21 14:50 Anaerobic Culture - Pending Ankle - Right PFSH All Active Problems Atrial fibrillation (Acute) Septic arthritis of ankle and foot region (Acute) DVT prophylaxis (Acute) Discharge planning issues (Acute) Sepsis (Acute) Cellulitis of right ankle (Acute) Complication of external fixation device with internal components (Acute) Noncompliance (Acute) Fall at home (Acute) Generalized weakness (Acute) Closed fracture dislocation of right ankle (Acute 11/22/21) Medical History History of COVID-19 Hx of diabetes mellitus Surgical History Hx of eye surgery right eye trauma; blindness at present Hx of knee surgery left Hx of shoulder surgery left Social History Smoking/Tobacco Use Status: Never Smoking risk assessment performed?: Yes Alcohol Intake: never Drug use: Never Substance use type: does not use Do you feel safe at home: Yes Do you feel safe in your relationship?: Yes
[2021-12-13 06:22] LABS: Absolute Basophil Count 0.04 10^3/uL (0.0-0.2); Absolute Eosinophil Count 0.16 10^3/uL (0.0-0.7); Absolute Lymphocyte Count 1.48 10^3/uL (1.2-3.4); Absolute Monocyte Count 1.07 10^3/uL (0.1-0.8); Absolute Neutrophil Count 5.14 10^3/uL (1.2-6.7); Basophils % 0.5; HCT 34.6 % (40.0-50.0); HGB 11.4 g/dL (13.5-17.5); Immature Grans % 1.3; Lymphocytes % 18.5; MCH 33.4 pg (27.0-33.0); MCHC 32.9 % (32.0-36.0); MCV 101.5 fL (80-95); Monocytes % 13.4; Neutrophils % 64.3; Nucleated RBC 0 %; Platelet Count 190 10^3/uL (130-400); RBC 3.41 10^6/uL (4.36-5.78); RDW 13.4 % (11.8-14.1); RDW-SD 50.4 fL; WBC 7.99 10^3/uL (4.4-10.8)
[2021-12-13 09:18] LABS: Prealbumin 4 mg/dL (20-40)
== END 2021-12-13 07:15 | disposition short-term general hospital (02) | DRG 492 ==
LOC: ER 19:33 → MS 19:54 → ICU 22:54
PROVIDERS: Internal Medicine; Student in an Organized Health Care Education/Training Program; Admitting Provider Family Medicine; Emergency Provider Physician Assistant; PCP Family Medicine; Visit Provider Student in an Organized Health Care Education/Training Program
DX: T84.69XA Infection and inflammatory reaction due to internal fixation device of other site, initial encounter (principal); A41.50 Gram-negative sepsis, unspecified; L03.115 Cellulitis of right lower limb; M00.871 Arthritis due to other bacteria, right ankle and foot; S82.831A Other fracture of upper and lower end of right fibula, initial encounter for closed fracture; Z91.19 Patient's noncompliance with other medical treatment and regimen; R29.6 Repeated falls; R53.1 Weakness; E11.65 Type 2 diabetes mellitus with hyperglycemia; E11.42 Type 2 diabetes mellitus with diabetic polyneuropathy; E11.649 Type 2 diabetes mellitus with hypoglycemia without coma; Z86.16 Personal history of COVID-19; Y79.3 Surgical instruments, materials and orthopedic devices (including sutures) associated with adverse incidents; W18.30XA Fall on same level, unspecified, initial encounter; Z79.4 Long term (current) use of insulin; B96.89 Other specified bacterial agents as the cause of diseases classified elsewhere; B96.5 Pseudomonas (aeruginosa) (mallei) (pseudomallei) as the cause of diseases classified elsewhere; I48.91 Unspecified atrial fibrillation
CPT/HCPCS: 11042; 20690; 27610; 27792; 36415; 36416; 71275; 80048; 80053; 82962; 85652; 87040; 87077; 87635; 93005; 93306; 96361; 96374; 99223; 99285; J1650; 71045; 73590; 73610; 80202; 82607; 82746; 83036; 83605; 83735; 84134; 84439; 84443; 85025; 85379; 85610; 86140; 87070; 87075; 87186; 87205; 93010; 93971; 99222; 99233; 99291; 99292; G0378; J0131; J0743; J1885; J1941; J2001; J2060; J2250; J2270; J2543; J2704; J3470; J3475; J3490

== ENCOUNTER 2022-04-15 03:37 | Emergency (ER) | payer MEDICARE, SELFPAY ==
[2022-04-15 03:41] VITALS: BP 127/60; PULSE 84; RESP 18; TEMP 37.2; O2SAT 97
--- NOTE | 2022-04-15 03:45 | DI.RAD_ITS ---
Exam(s) XR TIB/FIB RT EXAM: XR TIB/FIB RT CLINICAL HISTORY: notable hardware, felt pop today. TECHNIQUE: 2D digital imaging was performed. COMPARISON: CR,XR XR TIB/FIB RT from 12/09/2021 FINDINGS: Two views Osseous: There is a intramedullary broad extending from just below the mid tibia through the ankle joint and s ubtalar joint and secured by 2 screws proximally as well as screws in the talus and calcaneus. There is nondisplaced fracture at the junction of the mid and distal thirds of the tibia in the regio n of the superior aspect of the intramedullary nicolas, this best seen on the lateral view. Soft tissues: There is a prominent soft tissue defect on the medial aspect of the distal leg with raul gical clips in this region. Another similar defect is seen lower down in the soft tissues at the med ial malleolus level. There is no radiographic evidence of osteomyelitis at these levels. Vascular c alcifications noted. IMPRESSION: There is a fracture evident near the superior tip of the intramedullary fixation nicolas in the tibia, as described above DATA REPOSITORY: RADIATION DOSE DELIVERED:
--- NOTE | 2022-04-15 04:01 | ED.GENADUL_ITS ---
Discharge Plan Disposition Patient Disposition: HOME Condition: Good Discharge Details Chief Complaint: Orthopedic Clinical Impression: Fracture of right tibia Primary Care Provider: Andre Aguilar ED Provider: Dung Valle Home Meds and New Rx's Prescriptions: No Action acetaminophen 500 mg tablet 500 mg PO Q6H PRN (Reason: fever) Qty: 90 0RF oxycodone-acetaminophen [Percocet] 5-325 mg tablet 1 tab PO Q6H MDD 4 tabs PRN (Reason: pain, moderate) Qty: 18 0RF Rx Instructions: Take with Food, no driving or operating heavy machinery. metformin 1,000 mg Tablet 1,000 mg PO BID multivitamin [Multiple Vitamins] Tablet 1 tab PO DAILY Qty: 0 0RF polyethylene glycol 3350 17 gram Powder In Packet 17 g PO DAILY Qty: 0 0RF imipenem-cilastatin 500 mg Recon Soln 1,000 mg IVPB Q8H Qty: 0 0RF sennosides-docusate sodium [Colace 2-In-1] 8.6-50 mg Tablet 1 tab PO BID Qty: 0 0RF Phlexy-Vits Powder In Packet 1 oz PO TID Qty: 0 0RF sodium chloride 0.9 % (flush) [BD PosiFlush Normal Saline 0.9] Syringe 1 ml IVP PRN PRNQty: 0 0RF insulin aspart U-100 [Novolog Flexpen U-100 Insulin] 100 unit/mL (3 mL) Insulin Pen 0 - 9 units subcut 0800,1200,1700,2200 Qty: 0 0RF metoprolol tartrate 25 mg Tablet 12.5 mg PO QID Qty: 0 0RF zinc sulfate [Zinc-220] 50 mg zinc (220 mg) Capsule 220 mg PO DAILY Qty: 0 0RF Discharge Instructions Additional Instructions: At this time you do have a small fracture just above your orthopedic nicolas. This will likely require surgery. [facility] orthopedics will be contacting you shortly to set up close follow-up. Please remain completely nonweightbearing on your right leg. Keep the cast on at all times. Take the pain medications only as needed for pain. If you notice any worsening of your symptoms, or any new symptoms such as vomiting, diarrhea, fever, chills, shortness of breath, chest pain, numbness, weakness, or fainting , please return immediately to the emergency department for reevaluation. Please follow up with your primary care provider as soon as possible for reassessment and reevaluation. As always, it was a pleasure participating in your medical care today. Referrals: Andre Aguilar [Primary Care Provider] - Medical Decision Making This is a 71-year-old male with a past medical history of diabetes, and a very complicated history of recent ankle fracture on 11/27/2021, with surgical management, and unfortunate subsequent infection of the site as well as notable destruction of the external fixator secondary to ambulating on it, which led to subsequent removal of the devices, multiple washouts, eventual transfer to [facility] in late November early December, and continued multiple washouts, sepsis, antibiotic nail placement, with eventual discharge after being on prolonged antibiotics including IV daptomycin which was ended on 04/05, with subsequent resolution of his infection and eventual transition from the [facility] in late March to living back at home currently with his dog. He presents today for evaluation of his right montes. Patient states that today at about 4 PM he was bending forward when he felt a pop in his montes. No significant pain at this time. He moved again and the area seemed to pop back into place on the montes. This again happened a few hours later, and states that throughout the rest of the afternoon in the evening his been working on getting a ride to the hospital. He was still able to move around. He denies any pain. He comes to the ER now via EMS for further assessment. He otherwise denies any new pain. He denies any trauma. He denies any fever or chills. No other complaints at this time. No other modifying. Factors. Exam demonstrates a postoperative right lower extremity with no evidence of wound dehiscence, or significant acute infection. The area of concern that the patient has this in the proximal montes. No clear evidence of abnormality on exam there aside for the postsurgical sites. Patient is very insistent on getting an x-ray for further evaluation. Do feel that this is reasonable at this time. Will monitor closely evaluate radiographically and reassess. 6 AM X-ray shows evidence of a new right tibial fracture just superior to the tip of the intracortical fixation nicolas. We did contact [facility] orthopedics, and at this time they do feel that the patient would benefit from close follow-up and potential nonemergent surgery. They will be contacting him this week to set that up. They recommend nonweightbearing status at all times, and continued cast use. We will give the patient a few oxycodones for pain as needed for home use. I have extensively reviewed the treatment plan and discharge instructions with the patient. I have addressed all patient concerns at this time. The patient was made aware of what symptoms to monitor for that would warrant a return to the emergency department. Discussed the plan with the patient, they demonstrate verbal understanding and agreement with our assessment and plan at this time. The documentation in this chart was dictated using [employer] dictation software. Please excuse any dictation errors. FINDINGS: Bones/joints: Multiple tibial and pedal defects from prior instrumentation. Ankle fusion with new hardware in the form of a trans calcaneal distal tibial fixation nicolas and trans calcaneal cortical screw. There is a new fracture at the junction of the mid and distal thirds of the right tibia close to the superior and of the intra cortical fixation nicolas probably best appreciated on lateral view. Bony defect includes an approximately 1 mm defect with cortical reaction anteriorly, hairline posteriorly. It is noted that the most recent comparison radiographs are from prior to placement of existing orthopedic hardware configuration. If more recent radiographs become available, we would be happy to review them. Soft tissues: Medial distal leg surgical clips in soft tissues. Medial leg and ankle skin defects. Vasculature: Vascular calcification. IMPRESSION: New right tibial fracture near superior tip of intra cortical fixation nicolas. Thank you for allowing us to participate in the care of your patient. HPI General Date/Time Provider Initiated Documentation: 04/15/22 03:50 . HPI Narrative: This is a 71-year-old male with a past medical history of diabetes, and a very complicated history of recent ankle fracture on 11/27/2021, with surgical management, and unfortunate subsequent infection of the site as well as notable destruction of the external fixator secondary to ambulating on it, which led to subsequent removal of the devices, multiple washouts, eventual transfer to [facility] in late November early December, and continued multiple washouts, sepsis, antibiotic nail placement, with eventual discharge after being on prolonged antibiotics including IV daptomycin which was ended on 04/05, with subsequent resolution of his infection and eventual transition from the [facility] in late March to living back at home currently with his dog. He presents today for evaluation of his right montes. Patient states that today at about 4 PM he was bending forward when he felt a pop in his montes. No significant pain at this time. He moved again and the area seemed to pop back into place on the montes. This again happened a few hours later, and states that throughout the rest of the afternoon in the evening his been working on getting a ride to the hospital. He was still able to move around. He denies any pain. He comes to the ER now via EMS for further assessment. He otherwise denies any new pain. He denies any trauma. He denies any fever or chills. No other complaints at this time. No other modifying. Factors. Related Data Home Medications Medication Instructions Recorded Confirmed metformin 1,000 mg tablet 1,000 mg PO BID 11/22/21 04/15/22 acetaminophen 500 mg tablet 500 mg PO Q6H PRN fever #90 tabs 11/26/21 04/15/22 oxycodone-acetaminophen 5 mg-325 1 tab PO Q6H PRN pain, moderate 12/03/21 04/15/22 mg tablet (Percocet) #18 tabs imipenem-cilastatin 500 mg 1,000 mg IVPB Q8H #0 ea 12/12/21 intravenous solution insulin aspart U-100 100 unit/mL 0 - 9 units (2677.09 mL) subcut 12/12/21 (3 mL) subcutaneous pen (Novolog 0800,1200,1700,2200 #0 mL Flexpen U-100 Insulin aspart) metoprolol tartrate 25 mg tablet 12.5 mg PO QID #0 tabs 12/12/21 04/15/22 multivitamin (Multiple Vitamins 1 tab PO DAILY #0 tabs 12/12/21 04/15/22 tablet) nutritional supplements 1 oz PO TID #0 ea 12/12/21 04/15/22 (Phlexy-Vits) polyethylene glycol 3350 17 gram 17 g PO DAILY #0 ea 12/12/21 oral powder packet sennosides 8.6 mg-docusate sodium 1 tab PO BID #0 tabs 12/12/21 04/15/22 50 mg tablet (Colace 2-In-1) sodium chloride 0.9 % (flush) (BD 1 ml IVP PRN PRN #0 mL 12/12/21 PosiFlush Normal Saline 0.9 % injection syringe) zinc sulfate 50 mg zinc (220 mg) 220 mg PO DAILY #0 caps 12/12/21 04/15/22 capsule (Zinc-220) Previous Rx's Medication Instructions Recorded acetaminophen 500 mg tablet 500 mg PO Q6H PRN fever #90 tabs 11/26/21 oxycodone-acetaminophen 5 mg-325 1 tab PO Q6H PRN pain, moderate 12/03/21 mg tablet (Percocet) #18 tabs imipenem-cilastatin 500 mg 1,000 mg IVPB Q8H #0 ea 12/12/21 intravenous solution insulin aspart U-100 100 unit/mL 0 - 9 units (2677.09 mL) subcut 12/12/21 (3 mL) subcutaneous pen (Novolog 0800,1200,1700,2200 #0 mL Flexpen U-100 Insulin aspart) metoprolol tartrate 25 mg tablet 12.5 mg PO QID #0 tabs 12/12/21 multivitamin (Multiple Vitamins 1 tab PO DAILY #0 tabs 12/12/21 tablet) nutritional supplements 1 oz PO TID #0 ea 12/12/21 (Phlexy-Vits) polyethylene glycol 3350 17 gram 17 g PO DAILY #0 ea 12/12/21 oral powder packet sennosides 8.6 mg-docusate sodium 1 tab PO BID #0 tabs 12/12/21 50 mg tablet (Colace 2-In-1) sodium chloride 0.9 % (flush) (BD 1 ml IVP PRN PRN #0 mL 12/12/21 PosiFlush Normal Saline 0.9 % injection syringe) zinc sulfate 50 mg zinc (220 mg) 220 mg PO DAILY #0 caps 12/12/21 capsule (Zinc-220) Allergies Allergy/AdvReac Type Severity Reaction Status Date / Time melatonin AdvReac Intermediate Itching Unverified 04/15/22 03:46 General Stated Complaint: Orthopedic NIA: 4 Review of Systems All systems reviewed & are unremarkable except as noted in HPI and below PFSH All Active Problems (Updated 04/15/22 @ 05:54 by Dung Valle DO) Fracture of right tibia (Acute) Atrial fibrillation (Acute) Septic arthritis of ankle and foot region (Acute) DVT prophylaxis (Acute) Sepsis (Acute) Cellulitis of right ankle (Acute) Complication of external fixation device with internal components (Acute) Generalized weakness (Acute) Medical History Fall at home History of COVID-19 Hx of diabetes mellitus Surgical History Hx of eye surgery right eye trauma; blindness at present Hx of knee surgery left Hx of shoulder surgery left Social History Smoking/Tobacco Use Status: Never Smoking risk assessment performed?: Yes Alcohol Intake: never Drug use: Never Substance use type: does not use Do you feel safe at home: Yes Do you feel safe in your relationship?: Yes Exam Narrative Exam Narrative: 1.Const: Well-nourished, Well-developed, appearing stated age 2.Eyes: PERRL, no conjunctival injection, and symmetrical lids. 3.ENT: Atraumatic external nose and ears. Moist MM. Neck: Symmetric, trachea midline, No thyromegaly. 4.CVS: +S1/S2, No murmurs or gallops. Peripheral pulses 2+ and equal in all extremities. Brisk capillary refill in all extremities. 5.RESP: Unlabored respiratory effort. Clear to auscultation bilaterally. No wheezes rales or rhonchi 6.GI: Soft, Nontender/Nondistended, No hepatosplenomegaly. No guarding or rebound. 7.MSK: Right lower extremity demonstrated multiple previous surgical scars, no evidence of wound dehiscence of previous surgical sites. Very small tiny ulcer in the distal montes. Over the proximal montes patient demonstrates no new tenderness. No evidence of bora deformity. No redness or warmth to suggest cellulitis. 8.Skin: Warm, Dry. No rashes or lesions. 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 Sensation grossly intact, no focal neurologic deficits. 10.Psych: (AAO) x3. Appropriate mood and affect Course Vital Signs Vital signs: Vital Signs Temperature 37.2 C 04/15/22 03:41 Pulse 84 04/15/22 03:41 Respiratory Rate 18 04/15/22 03:41 Blood Pressure 127/60 04/15/22 03:41 Pulse Oximetry 97 04/15/22 03:41 Temperature 37.2 C 04/15/22 03:41 Temperature Source Oral 04/15/22 03:41 Pulse 84 04/15/22 03:41 Respiratory Rate 18 04/15/22 03:41 Blood Pressure 127/60 04/15/22 03:41 Blood Pressure Position Supine 04/15/22 03:41 Pulse Oximetry 97 04/15/22 03:41 Pain Level 5 04/15/22 03:41
--- NOTE | 2022-04-15 04:49 | DI.VRAD_ITS ---
PROCEDURE INFORMATION: Exam: XR Right Tibia and Fibula Exam date and time: 04/15/2022 3:57 AM Age: 71 years old Clinical indication: Lower leg; Right; Prior surgery; Surgery date: 1-6 months; Surgery type: Ankle FX in nov; Patient HX: Pain, notable hardware, felt pop today TECHNIQUE: Imaging protocol: Radiologic exam of the Right tibia and fibula. Views: 2 views. COMPARISON: XA XR TIB/FIB RT 12/10/2021 3:08 PM FINDINGS: Bones/joints: Multiple tibial and pedal defects from prior instrumentation. Ankle fusion with new hardware in the form of a trans calcaneal distal tibial fixation nicolas and trans calcaneal cortical screw. There is a new fracture at the junction of the mid and distal thirds of the right tibia close to the superior and of the intra cortical fixation nicolas probably best appreciated on lateral view. Bony defect includes an approximately 1 mm defect with cortical reaction anteriorly, hairline posteriorly. It is noted that the most recent comparison radiographs are from prior to placement of existing orthopedic hardware configuration. If more recent radiographs become available, we would be happy to review them. Soft tissues: Medial distal leg surgical clips in soft tissues. Medial leg and ankle skin defects. Vasculature: Vascular calcification. IMPRESSION: New right tibial fracture near superior tip of intra cortical fixation nicolas. Dictated and Authenticated by: Wilton Coronel MD. Ordering:WILDER Razo MD
[2022-04-15] MEDS: Acetaminophen 500 MG TAB 1000 MG PO (05:15)
[2022-04-15] MEDS: oxyCODONE 5 MG TAB PO (06:06)
[2022-04-15 06:10] VITALS: BP 128/62; PULSE 78; RESP 16; O2SAT 99
== END 2022-04-15 06:33 | disposition home or self-care (01) ==
LOC: ER 06:32
PROVIDERS: Emergency Provider Student in an Organized Health Care Education/Training Program; PCP Family Medicine
DX: S82.291A Other fracture of shaft of right tibia, initial encounter for closed fracture (principal); X58.XXXA Exposure to other specified factors, initial encounter
CPT/HCPCS: 99283; 73590

== ENCOUNTER 2023-05-03 12:38 | Emergency (ER) | payer MEDICARE, SELFPAY ==
[2023-05-03 12:40] VITALS: BP 146/86; PULSE 77; RESP 16; TEMP 36.7; O2SAT 98
--- NOTE | 2023-05-03 13:00 | DI.RAD_ITS ---
Exam(s) XR ANKLE RT COMPLETE EXAM: XR ANKLE RT COMPLETE CLINICAL HISTORY: lateral ankle pain. TECHNIQUE: 2D digital imaging was performed. COMPARISON: CR,XR XR ANKLE RT COMPLETE from 12/09/2021 FINDINGS: 3 views There has been interval fusion of the ankle joint. Long intramedullary nicolas extends from the tibia to the inferior aspect of the calcaneus. Healing fracture sites evident in the distal fibula, and tibi a. Multiple surgical clips noted in the soft tissues. At the level the calcaneus the nicolas is secured by multiple screws. There is an area of lucency in the bone of the inferior calcaneus surrounding t he inferior tip of the intramedullary nicolas, possibly significant. IMPRESSION: ORIF/ankle fusion. Healing fracture sites. Area of abnormal lucency around the inferior most aspect of the intramedullary nicolas. Cannot exclude o steomyelitis. Correlation with clinical findings recommended. DATA REPOSITORY: RADIATION DOSE DELIVERED:
--- NOTE | 2023-05-03 13:07 | ED.GENADUL_ITS ---
Discharge Plan Disposition Patient Disposition: Home Discharge Details Clinical Impression: Pain in right ankle, Post-operative complication Primary Care Provider: Andre Aguilar ED Provider: Leonardo Zazueta Meds and New Rx's Prescriptions: Continued acetaminophen 500 mg tablet 500 mg PO Q6H PRN (Reason: fever) Qty: 90 0RF oxycodone-acetaminophen [Percocet] 5-325 mg tablet 1 tab PO Q6H MDD 4 tabs PRN (Reason: pain, moderate) Qty: 18 0RF Rx Instructions: Take with Food, no driving or operating heavy machinery. metformin 1,000 mg Tablet 1,000 mg PO BID multivitamin [Multiple Vitamins] Tablet 1 tab PO DAILY Qty: 0 0RF polyethylene glycol 3350 17 gram Powder In Packet 17 g PO DAILY Qty: 0 0RF imipenem-cilastatin 500 mg Recon Soln 1,000 mg IVPB Q8H Qty: 0 0RF sennosides-docusate sodium [Colace 2-In-1] 8.6-50 mg Tablet 1 tab PO BID Qty: 0 0RF Phlexy-Vits Powder In Packet 1 oz PO TID Qty: 0 0RF sodium chloride 0.9 % (flush) [BD PosiFlush Normal Saline 0.9] Syringe 1 ml IVP PRN PRNQty: 0 0RF insulin aspart U-100 [Novolog FlexPen U-100 Insulin] 100 unit/mL (3 mL) Insulin Pen 0 - 9 units subcut 0800,1200,1700,2200 Qty: 0 0RF metoprolol tartrate 25 mg Tablet 12.5 mg PO QID Qty: 0 0RF zinc sulfate [Zinc-220] 50 mg zinc (220 mg) Capsule 220 mg PO DAILY Qty: 0 0RF Discharge Instructions Instructions: Arthralgia (ED) Additional Instructions: If you develop any new or significant worsening of symptoms please return to the emergency department for reassessment. Otherwise follow-up with [facility] orthopedic surgery office for further examination of your right ankle and high potential for your pain being secondary to the internal hardware from your fracture repair. You have been given a limited supply of narcotic please take only as needed for severe pain and otherwise you may continue to take [id number] acetaminophen as you have been taking just please do not exceed 3000 mg in a 24 period. Referrals: [facility] [Outside] Discharge Data Discharge Date/Time-TO BE ENTERED AT DEPARTURE: 05/03/23 16:32 Medical Decision Making <Alex Benitez NP - Last Filed: 05/04/23 08:47> Patient presenting to the emergency department for chief complaint of right ankle pain. Patient reports that he has had severe complications secondary to ankle fracture that happened approximately a year and a half ago. He had to have multiple surgeries and repair due to infections and complications. He states he has been doing well for the past 6 months but over the past 6 weeks has noted increased pain and discomfort mainly to the lateral aspect of the ankle. He did note some swelling and redness just above the lateral heel. Patient states that these findings have been going on the past 6 weeks. Patient denies any injury or trauma fever chills or other symptoms. Physical exam shows significant deformity. With severe reduction of range of motion which patient states is at baseline. Area of concern is approximately 2-1/2 cm in diameter with swelling and redness in between plantar surface of foot and lateral malleolus. Exam is otherwise unremarkable with normal cap refill, pulses intact, no streaking redness. We will perform radiological imaging to ensure there is no occult injury. Cellulitis is considered given that patient is a diabetic at the same time patient has had symptoms for 6 weeks so I have lower suspicion. Patient states that he is attempted to follow-up with his orthopedic surgeon but they have not contacted him back in the last couple days. Reviewed radiological imaging and it does seem that the area of swelling and discomfort that patient is experiencing is related to a piece of hardware from his complicated repair. Because of this being potentially hardware-related will perform some labs. Labs reviewed and CBC shows slight anemia which is nonemergent at this point. ESR is elevated at 46 and CRP is 1.8 otherwise remaining of labs is nondiagnostic. We will contact [facility] orthopedics. Patient has had previous surgeries and discuss potential increase of pain due to hardware. At this time I do not feel that this is signs of infection and or need of antibiotic. <Leonardo Zazueta MD - Last Filed: 05/03/23 16:53> Patient presenting to the emergency department for chief complaint of right ankle pain. Patient reports that he has had severe complications secondary to ankle fracture that happened approximately a year and a half ago. He had to have multiple surgeries and repair due to infections and complications. He states he has been doing well for the past 6 months but over the past 6 weeks has noted increased pain and discomfort mainly to the lateral aspect of the ankle. He did note some swelling and redness just above the lateral heel. Patient states that these findings have been going on the past 6 weeks. Patient denies any injury or trauma fever chills or other symptoms. Physical exam shows significant deformity. With severe reduction of range of motion which patient states is at baseline. Area of concern is approximately 2-1/2 cm in diameter with swelling and redness in between plantar surface of foot and lateral malleolus. Exam is otherwise unremarkable with normal cap refill, pulses intact, no streaking redness. We will perform radiological imaging to ensure there is no occult injury. Cellulitis is considered given that patient is a diabetic at the same time patient has had symptoms for 6 weeks so I have lower suspicion. Patient states that he is attempted to follow-up with his orthopedic surgeon but they have not contacted him back in the last couple days. Reviewed radiological imaging and it does seem that the area of swelling and discomfort that patient is experiencing is related to a piece of hardware from his complicated repair. Because of this being potentially hardware-related will perform some labs. Labs reviewed and CBC shows slight anemia which is nonemergent at this point. ESR is elevated at 46 and CRP is 1.8 otherwise remaining of labs is nondiagnostic. We will contact [facility] orthopedics. Patient has had previous surgeries and discuss potential increase of pain due to hardware. At this time I do not feel that this is signs of infection and or need of antibiotic. Patient signed out pending orthopedic callback from [facility]. Patient did request discharge prior to that discussion. Images had been sent down and were reviewed by orthopedics there. It does appear that one of the screws continues to back out. After discussion it was felt patient may weight-bear as tolerated but with any increased pain or concern regarding the screws he should become non-weightbearing and use crutches. Orthopedics will reach out to him on Friday to set up follow-up appointment. I called and spoke to the patient and discussed above with him. He is aware that any increased pain, swelling, concern regarding the screw tenting the skin that he should become non- weightbearing and use his crutches. He is aware that orthopedics will call him Friday. We discussed return precautions. HPI <Alex Benitez NP - Last Filed: 05/04/23 08:47> General Mode of arrival: ambulatory . Date/Time Provider Initiated Documentation: 05/03/23 12:47 . Limitations to Documentation: no limitations . Information obtained by: patient, RN notes reviewed and old records reviewed . History of Present Illness 72 year old M presents to the emergency department with the chief complaint of Right ankle pain, described as moderate and similar to prior episodes, Quality is described as aching and sharp, and is localized to the right and lower extremity. Patient reports no radiation. Patient started experiencing this week(s) (6) and it has been constant. No relieving factors improve symptom(s), No exacerbating factors reported . Patient notes no other symptoms.. Patient did receive the following treatments prior to arrival, other (Acetaminophen) Related Data Home Medications Medication Instructions Recorded Confirmed metformin 1,000 mg tablet 1,000 mg PO BID 11/22/21 04/15/22 acetaminophen 500 mg tablet 500 mg PO Q6H PRN fever #90 tabs 11/26/21 04/15/22 oxycodone-acetaminophen 5 mg-325 1 tab PO Q6H PRN pain, moderate 12/03/21 04/15/22 mg tablet (Percocet) #18 tabs imipenem-cilastatin 500 mg 1,000 mg IVPB Q8H #0 ea 12/12/21 intravenous solution insulin aspart U-100 100 unit/mL 0 - 9 units (0 - 0.09 mL) subcut 12/12/21 (3 mL) subcutaneous pen (Novolog 0800,1200,1700,2200 #0 mL FlexPen U-100 Insulin aspart) metoprolol tartrate 25 mg tablet 12.5 mg PO QID #0 tabs 12/12/21 04/15/22 multivitamin (Multiple Vitamins 1 tab PO DAILY #0 tabs 12/12/21 04/15/22 tablet) nutritional supplements 1 oz PO TID #0 ea 12/12/21 04/15/22 (Phlexy-Vits) polyethylene glycol 3350 17 gram 17 g PO DAILY #0 ea 12/12/21 oral powder packet sennosides 8.6 mg-docusate sodium 1 tab PO BID #0 tabs 12/12/21 04/15/22 50 mg tablet (Colace 2-In-1) sodium chloride 0.9 % (flush) (BD 1 ml IVP PRN PRN #0 mL 12/12/21 PosiFlush Normal Saline 0.9 % injection syringe) zinc sulfate 50 mg zinc (220 mg) 220 mg PO DAILY #0 caps 12/12/21 04/15/22 capsule (Zinc-220) Previous Rx's Medication Instructions Recorded acetaminophen 500 mg tablet 500 mg PO Q6H PRN fever #90 tabs 11/26/21 oxycodone-acetaminophen 5 mg-325 1 tab PO Q6H PRN pain, moderate 12/03/21 mg tablet (Percocet) #18 tabs imipenem-cilastatin 500 mg 1,000 mg IVPB Q8H #0 ea 12/12/21 intravenous solution insulin aspart U-100 100 unit/mL 0 - 9 units (0 - 0.09 mL) subcut 12/12/21 (3 mL) subcutaneous pen (Novolog 0800,1200,1700,2200 #0 mL FlexPen U-100 Insulin aspart) metoprolol tartrate 25 mg tablet 12.5 mg PO QID #0 tabs 12/12/21 multivitamin (Multiple Vitamins 1 tab PO DAILY #0 tabs 12/12/21 tablet) nutritional supplements 1 oz PO TID #0 ea 12/12/21 (Phlexy-Vits) polyethylene glycol 3350 17 gram 17 g PO DAILY #0 ea 12/12/21 oral powder packet sennosides 8.6 mg-docusate sodium 1 tab PO BID #0 tabs 12/12/21 50 mg tablet (Colace 2-In-1) sodium chloride 0.9 % (flush) (BD 1 ml IVP PRN PRN #0 mL 12/12/21 PosiFlush Normal Saline 0.9 % injection syringe) zinc sulfate 50 mg zinc (220 mg) 220 mg PO DAILY #0 caps 12/12/21 capsule (Zinc-220) Allergies Allergy/AdvReac Type Severity Reaction Status Date / Time melatonin AdvReac Intermediate Itching Unverified 05/03/23 12:46 General Stated Complaint: Orthopedic NIA: 3 Review of Systems <Alex Benitez NP - Last Filed: 05/04/23 08:47> Constitutional Constitutional: Denies chills, Denies fever(s) and Denies headache(s) ENT Ears, Nose, Mouth, and Throat: Denies headache(s) Cardiovascular Cardiovascular: Denies chest pain and Denies dyspnea Respiratory Respiratory: Denies dyspnea Musculoskeletal Musculoskeletal: Reports as per HPI, Denies myalgias, Reports joint swelling and Denies tingling Integumentary/Breasts Skin/Breast: Reports erythema Neurologic Neurologic: Denies headache(s) and Denies tingling PFSH <Alex Benitez NP - Last Filed: 05/04/23 08:47> All Active Problems (Updated 05/03/23 @ 15:55 by Alex Benitez NP) Pain in right ankle (Acute) Post-operative complication (Acute) Atrial fibrillation (Acute) Septic arthritis of ankle and foot region (Acute) DVT prophylaxis (Acute) Sepsis (Acute) Cellulitis of right ankle (Acute) Complication of external fixation device with internal components (Acute) Generalized weakness (Acute) Medical History Fall at home History of COVID-19 Hx of diabetes mellitus Surgical History Hx of eye surgery right eye trauma; blindness at present Hx of knee surgery left Hx of shoulder surgery left Social History Smoking/Tobacco Use Status: Never Smoking risk assessment performed?: Yes Alcohol Intake: never Drug use: Never Substance use type: does not use Housing: house Do you feel safe at home: Yes Do you feel safe in your relationship?: Yes Exam <Alex Benitez NP - Last Filed: 05/04/23 08:47> Const General: cooperative, no acute distress and not ill appearing Orientation: alert, awake and oriented x3 HENMT Mouth: moist mucous membranes Resp Effort & Inspection: normal respiratory effort, able to speak in complete sentences and no respiratory distress Cardio Rate: regular rate Rhythm: regular rhythm Pulses: normal peripheral pulses Neuro General: patient alert, patient awake, patient oriented x3, moves all extremities and no focal motor deficits Sensory Exam: no sensory deficits noted Extrem Left lower extremity: normal capillary refill, ankle Details: abnormal to inspection (Chronic deformity secondary to surgery), tenderness Location: anterolaterally and abnormal ROM; no ecchymosis and foot Details: abnormal to inspection and edema Course <Alex Benitez NP - Last Filed: 05/04/23 08:47> Vital Signs Vital signs: Vital Signs Temperature 36.7 C 05/03/23 12:40 Pulse 77 05/03/23 12:40 Respiratory Rate 16 05/03/23 12:40 Blood Pressure 146/86 H 05/03/23 12:40 Pulse Oximetry 98 05/03/23 12:40 Temperature 36.7 C 05/03/23 12:40 Temperature Source Skin 05/03/23 12:40 Pulse 77 05/03/23 12:40 Respiratory Rate 16 05/03/23 12:40 Blood Pressure 146/86 H 05/03/23 12:40 Blood Pressure Position Sitting 05/03/23 12:40 Pulse Oximetry 98 05/03/23 12:40 Oxygen Delivery Method Room Air 05/03/23 12:40 Oxygen Flow Rate 0 05/03/23 12:40 Pain Level 7 05/03/23 12:40 Sign Out <Alex Benitez NP - Last Filed: 05/04/23 08:47> Sign Out Data: Sign Out Comment: Patient signed out pending [facility] consult for concern of orthopedic hardware causing worsening pain and discomfort. Last updated by Alex Benitez NP at 05/03/23 15:48
--- NOTE | 2023-05-03 13:45 | DI.VRAD_ITS ---
PROCEDURE INFORMATION: Exam: XR Right Ankle Exam date and time: 05/03/2023 1:28 PM Age: 72 years old Clinical indication: Other: Lateral ankle pain; Prior surgery; Surgery date: 6+ months; Surgery type: Unknown date or surgery TECHNIQUE: Imaging protocol: Radiologic exam of the right ankle. Views: 3 or more views. COMPARISON: CR XR ANKLE RT COMPLETE 12/09/2021 4:50 PM FINDINGS: Bones/joints: When compared with the patient's prior exam there has been interval fusion of the ankle. There is a long intramedullary nicolas which extends from the tibia to the calcaneus. There has been interval healing of fractures involving the distal fibula, tibia. Callus formation and hyperostosis is noted involving the distal tibial diaphysis. No definite acute fracture is identified. Soft tissues: There is soft tissue swelling of the ankle. Multiple surgical clips are noted IMPRESSION: Interval ORIF, ankle fusion. Healing fractures. Soft tissue swelling. No definite acute fracture by plain film exam The Dictated and Authenticated by: Isis Curry MD. Ordering:IRISH Johnson MD
--- NOTE | 2023-05-03 13:45 | NUR.NOTE ---
Nursing Note: assumed care of patient at this time
[2023-05-03 14:11] LABS: Abs Immature Grans 0.04 10^3/uL (0.0-0.06); HCT 36.4 % (40.0-50.0); HGB 12.1 g/dL (13.5-17.5); MCH 29.4 pg (27.0-33.0); MCHC 33.2 % (32.0-36.0); MCV 89 fL (80-95); MPV 9.6 fL (8.0-11.0); Platelet Count 229 10^3/uL (130-400); RBC 4.11 10^6/uL (4.36-5.78); RDW 16.1 % (11.8-14.1); RDW-SD 52.8 fL; WBC 6.44 10^3/uL (4.4-10.8)
[2023-05-03 14:12] LABS: ESR 46 mm/hr (0-20)
[2023-05-03 14:24] LABS: ALT 29 U/L (16-63); AST 32 U/L (15-37); Alkaline Phosphatase 110 U/L (46-116); Anion Gap 8.7 mmol/L (3-11); BUN 11 mg/dL (7-18); Bilirubin, Total 0.6 mg/dL (0.2-1.0); C-Reactive Protein 1.83 mg/dL (0.0-0.3); CO2 24.3 mmol/L (21.0-32.0); CREATININE 1.1 mg/dL (0.70-1.30); Calcium 8.6 mg/dL (8.5-10.1); Chloride 105 mmol/L (98-107); Estimated GFR 71.77 (mL/min/1.73m2); Glucose 148 mg/dL (74-106); Potassium 4.5 mmol/L (3.5-5.1); Sodium 138 mmol/L (136-145); Total Protein 7.9 g/dL (6.4-8.2)
[2023-05-03 14:26] LABS: Absolute Eosinophil Count 0.19 10^3/uL (0.0-0.7); Absolute Lymphocyte Count 1.87 10^3/uL (1.2-3.4); Absolute Monocyte Count 0.58 10^3/uL (0.1-0.8); Atypical Lymphocytes % 1; Diff Comment Manual Differential; RBC Morphology Normal
[2023-05-03 16:25] VITALS: BP 144/85; PULSE 66; RESP 16; O2SAT 96
== END 2023-05-03 16:32 | disposition home or self-care (01) ==
PROVIDERS: Nurse Practitioner Family; Emergency Provider Emergency Medicine; PCP Family Medicine
DX: M25.571 Pain in right ankle and joints of right foot (principal); G89.18 Other acute postprocedural pain; E11.9 Type 2 diabetes mellitus without complications; Z79.4 Long term (current) use of insulin; Z98.1 Arthrodesis status
CPT/HCPCS: 80053; 85652; 99283; 73610; 85025; 86140

== ENCOUNTER 2024-01-18 00:04 | Outpatient (RCR) | payer MEDICARE, SELFPAY ==
[2023-12-24] MEDS: Normal Saline Flush 10 ML SYR IVP (13:33)
--- NOTE | 2023-12-25 13:15 | DI.RAD_ITS ---
Exam(s) XR PORTABLE CHEST AP POST LINE EXAM: XR PORTABLE CHEST AP POST LINE CLINICAL HISTORY: VERIFY PICC PLACEMENT. TECHNIQUE: 2D digital imaging was performed. COMPARISON: CR,XR XR PORTABLE CHEST AP from 12/09/2021 FINDINGS: Single AP portable view. Distal tip of the newly placed left PICC line is at the SVC RA junction. Heart size is upper normal. The mediastinum is not widened. Lungs are clear. No infiltrates nor obvious pleural effusions. IMPRESSION: PICC line distal tip position as above. Recommend retracting 2 cm. DATA REPOSITORY: RADIATION DOSE DELIVERED:
[2023-12-25] MEDS: Normal Saline Flush 10 ML SYR IVP (14:32)
[2023-12-26] MEDS: Normal Saline Flush 10 ML SYR IVP (12:54)
[2023-12-27] MEDS: Normal Saline Flush 10 ML SYR IVP ×2 (13:09→13:44)
[2023-12-28] MEDS: Normal Saline Flush 10 ML SYR IVP (13:04)
[2023-12-29] MEDS: Normal Saline Flush 10 ML SYR IVP (12:55)
[2023-12-29 13:35] LABS: Abs Immature Grans 0.06 10^3/uL (0.0-0.06); Absolute Basophil Count 0.06 10^3/uL (0.0-0.2); Absolute Eosinophil Count 0.31 10^3/uL (0.0-0.7); Absolute Lymphocyte Count 1.66 10^3/uL (1.2-3.4); Absolute Monocyte Count 0.82 10^3/uL (0.1-0.8); Absolute Neutrophil Count 4.11 10^3/uL (1.2-6.7); Basophils % 0.9; Eosinophils % 4.4; HCT 35.6 % (40.0-50.0); HGB 12.1 g/dL (13.5-17.5); Immature Grans % 0.9; Lymphocytes % 23.6; MCV 94 fL (80-95); MPV 9.3 fL (8.0-11.0); Monocytes % 11.7; Neutrophils % 58.5; Platelet Count 180 10^3/uL (130-400); RBC 3.78 10^6/uL (4.36-5.78); RDW 13.7 % (11.8-14.1); WBC 7.02 10^3/uL (4.4-10.8)
[2023-12-29 13:51] LABS: ALT 31 U/L (16-63); AST 35 U/L (15-37); Alkaline Phosphatase 116 U/L (46-116); BUN 14 mg/dL (7-18); Bilirubin, Total 0.5 mg/dL (0.2-1.0); C-Reactive Protein 1.21 mg/dL (<or=0.5); CREATININE 1.1 mg/dL (0.70-1.30); Calcium 9.2 mg/dL (8.5-10.1); Chloride 103 mmol/L (98-107); Creatine Kinase 88 U/L (39-308); Estimated GFR 71.32 (mL/min/1.73m2); Glucose 334 mg/dL (74-106); Potassium 4.6 mmol/L (3.5-5.1); Sodium 139 mmol/L (136-145); Total Protein 7.9 g/dL (6.4-8.2)
[2023-12-30] MEDS: Normal Saline Flush 10 ML SYR IVP (12:34)
[2023-12-31] MEDS: Normal Saline Flush 10 ML SYR IVP (12:57)
[2024-01-01] MEDS: Normal Saline Flush 10 ML SYR IVP (13:12)
[2024-01-02] MEDS: Normal Saline Flush 10 ML SYR IVP (12:53)
[2024-01-03] MEDS: Normal Saline Flush 10 ML SYR IVP (13:11)
[2024-01-04 14:03] VITALS: BP 145/76; PULSE 76; RESP 20; TEMP 37.3; O2SAT 96
[2024-01-05] MEDS: Normal Saline Flush 10 ML SYR IVP (13:00)
[2024-01-05 13:31] LABS: Abs Immature Grans 0.04 10^3/uL (0.0-0.06); Absolute Basophil Count 0.05 10^3/uL (0.0-0.2); Absolute Eosinophil Count 0.26 10^3/uL (0.0-0.7); Absolute Lymphocyte Count 1.79 10^3/uL (1.2-3.4); Absolute Monocyte Count 0.53 10^3/uL (0.1-0.8); Basophils % 0.8; Eosinophils % 4.1; HCT 36.8 % (40.0-50.0); HGB 12.1 g/dL (13.5-17.5); Immature Grans % 0.6; Lymphocytes % 28.5; MCH 31.7 pg (27.0-33.0); MCHC 32.9 % (32.0-36.0); MCV 96 fL (80-95); MPV 9.6 fL (8.0-11.0); Monocytes % 8.5; Neutrophils % 57.5; Platelet Count 183 10^3/uL (130-400); RBC 3.82 10^6/uL (4.36-5.78); RDW 13.9 % (11.8-14.1); RDW-SD 48.3 fL; WBC 6.27 10^3/uL (4.4-10.8)
[2024-01-05 13:42] LABS: ALT 25 U/L (16-63); AST 23 U/L (15-37); Alkaline Phosphatase 118 U/L (46-116); Anion Gap 9.5 mmol/L (3-11); BUN 14 mg/dL (7-18); Bilirubin, Total 0.6 mg/dL (0.2-1.0); CO2 25.5 mmol/L (21.0-32.0); Calcium 9.1 mg/dL (8.5-10.1); Chloride 105 mmol/L (98-107); Estimated GFR 79.97 (mL/min/1.73m2); Glucose 383 mg/dL (74-106); Potassium 4.3 mmol/L (3.5-5.1); Sodium 140 mmol/L (136-145); Total Protein 7.6 g/dL (6.4-8.2)
[2024-01-06] MEDS: Normal Saline Flush 10 ML SYR IVP (13:11)
[2024-01-07] MEDS: Normal Saline Flush 10 ML SYR IVP (13:03)
[2024-01-08] MEDS: Normal Saline Flush 10 ML SYR IVP (13:02)
[2024-01-08 13:44] LABS: Creatine Kinase 68 U/L (39-308)
[2024-01-09] MEDS: Normal Saline Flush 10 ML SYR IVP (12:47)
[2024-01-10 13:11] VITALS: BP 140/76; PULSE 76; RESP 22; TEMP 36.8; O2SAT 94
[2024-01-11] MEDS: Normal Saline Flush 10 ML SYR IVP (12:55)
[2024-01-12] MEDS: Normal Saline Flush 10 ML SYR IVP (12:48)
[2024-01-12 12:49] LABS: Abs Immature Grans 0.02 10^3/uL (0.0-0.06); Absolute Basophil Count 0.02 10^3/uL (0.0-0.2); Absolute Eosinophil Count 0.31 10^3/uL (0.0-0.7); Absolute Lymphocyte Count 1.85 10^3/uL (1.2-3.4); Absolute Monocyte Count 0.53 10^3/uL (0.1-0.8); Absolute Neutrophil Count 2.71 10^3/uL (1.2-6.7); Basophils % 0.4; Eosinophils % 5.7; HCT 36.3 % (40.0-50.0); HGB 12.1 g/dL (13.5-17.5); Immature Grans % 0.4; MCHC 33.3 % (32.0-36.0); MCV 96 fL (80-95); Monocytes % 9.7; Neutrophils % 49.8; Platelet Count 181 10^3/uL (130-400); RBC 3.78 10^6/uL (4.36-5.78); RDW-SD 49.5 fL; WBC 5.44 10^3/uL (4.4-10.8)
[2024-01-12 13:07] LABS: ALT 29 U/L (16-63); AST 27 U/L (15-37); Albumin 2.9 g/dL (3.4-5.0); Alkaline Phosphatase 108 U/L (46-116); BUN 13 mg/dL (7-18); Bilirubin, Total 0.9 mg/dL (0.2-1.0); C-Reactive Protein 0.59 mg/dL (<or=0.5); CREATININE 0.8 mg/dL (0.70-1.30); Calcium 8.7 mg/dL (8.5-10.1); Chloride 104 mmol/L (98-107); Creatine Kinase 77 U/L (39-308); Estimated GFR 94.03 (mL/min/1.73m2); Glucose 272 mg/dL (74-106); Potassium 4.4 mmol/L (3.5-5.1); Sodium 139 mmol/L (136-145); Total Protein 7.4 g/dL (6.4-8.2)
[2024-01-13] MEDS: Normal Saline Flush 10 ML SYR IVP (13:02)
[2024-01-14] MEDS: Normal Saline Flush 10 ML SYR IVP (12:59)
[2024-01-15] MEDS: Normal Saline Flush 10 ML SYR IVP (13:17)
[2024-01-16] MEDS: Normal Saline Flush 10 ML SYR IVP (13:01)
[2024-01-17] MEDS: Normal Saline Flush 10 ML SYR IVP (13:18)
[2024-01-17 13:21] VITALS: BP 129/72; PULSE 96; RESP 16; TEMP 36.8; O2SAT 129
[2024-01-18] MEDS: Normal Saline Flush 10 ML SYR IVP (13:30)
== END 2024-01-18 23:59 | disposition home or self-care (01) ==
LOC: INF 00:04
PROVIDERS: Internal Medicine Infectious Disease; PCP Family Medicine; Visit Provider Nurse Practitioner Acute Care
DX: M86.9 Osteomyelitis, unspecified (principal); B95.7 Other staphylococcus as the cause of diseases classified elsewhere
CPT/HCPCS: 36573; 36592; 71045; 80053; 82550; 96365; 85025; 86140; J0878

== ENCOUNTER 2024-01-21 14:02 | Inpatient (IN) | payer MEDICARE, SELFPAY ==
[2024-01-21] VITALS (19 sets, daily range): BP systolic 117–205; BP diastolic 42–94; PULSE 80–123; RESP 17–28; TEMP 36.8–38.7; O2SAT 88–94
--- NOTE | 2024-01-21 14:15 | DI.RAD_ITS ---
Exam(s) XR CHEST 2V PA LATERAL EXAM: XR CHEST 2V PA LATERAL CLINICAL HISTORY: ?pneumonia TECHNIQUE: 2D digital imaging was performed of the chest. Two images were obtained. PA and lateral views were obtained. COMPARISON: CR XR PORTABLE CHEST AP POST LINE from 12/25/2023 FINDINGS: There is poor inspiration MEDIASTINUM: Normal. HEART: Normal. PULMONARY VASCULATURE: Normal. LUNGS: There are bilateral opacities in the lung bases. The lungs are otherwise clear. PLEURAL SPACE: No pleural effusion or pneumothorax. BONE:Within normal limits for the patient's age. There is an old healed right clavicular for fractur e deformity. OTHER FINDINGS:Normal. IMPRESSION: 1. Low lung volumes. 2. Bilateral basilar opacities. This may represent atelectasis or pneumonia. DATA REPOSITORY: RADIATION DOSE DELIVERED:
--- NOTE | 2024-01-21 14:15 | DI.RAD_ITS ---
Exam(s) XR ANKLE RT COMPLETE EXAM: XR ANKLE RT COMPLETE CLINICAL HISTORY: swelling,pain. TECHNIQUE: 2D digital imaging was performed of the right ankle. Four images were obtained. AP, lat eral and oblique views were obtained. COMPARISON: CR,XR XR ANKLE RT COMPLETE from 05/03/2023 FINDINGS: BONES: No acute fracture is present. No bony destructive lesion is seen. Since the prior examination the M intramedullary nicolas has been removed as have the calcaneal screws. There are now screws yadi sing the talocalcaneal joint. There again seen findings of an ankle fusion. There is an old tibial fracture deformity. JOINTS: Talocalcaneal joint fusion and ankle joint effusion. SOFT TISSUE: Dystrophic calcifications are seen in the soft tissues. Surgical clips are seen in the medial lower leg. There is diffuse soft tissue swelling. IMPRESSION: No acute fracture or dislocation. DATA REPOSITORY: RADIATION DOSE DELIVERED:
--- NOTE | 2024-01-21 14:27 | ED.GENADUL_ITS ---
Discharge Plan Disposition Patient Disposition: Admit to [facility] Condition: Poor Discharge Details Chief Complaint: GenMedical Clinical Impression: Sepsis, Pneumonia Primary Care Provider: Andre Aguilar ED Provider: Mikhail Garrison Home Meds and New Rx's Prescriptions: No Action acetaminophen 500 mg tablet 500 mg PO Q6H PRN (Reason: fever) Qty: 90 0RF oxycodone-acetaminophen [Percocet] 5-325 mg tablet 1 tab PO Q6H MDD 4 tabs PRN (Reason: pain, moderate) Qty: 18 0RF Rx Instructions: Take with Food, no driving or operating heavy machinery. metformin 1,000 mg Tablet 1,000 mg PO BID multivitamin [Multiple Vitamins] Tablet 1 tab PO DAILY Qty: 0 0RF polyethylene glycol 3350 17 gram Powder In Packet 17 g PO DAILY Qty: 0 0RF imipenem-cilastatin 500 mg Recon Soln 1,000 mg IVPB Q8H Qty: 0 0RF sennosides-docusate sodium [Colace 2-In-1] 8.6-50 mg Tablet 1 tab PO BID Qty: 0 0RF Phlexy-Vits Powder In Packet 1 oz PO TID Qty: 0 0RF sodium chloride 0.9 % (flush) [BD PosiFlush Normal Saline 0.9] Syringe 1 ml IVP PRN PRNQty: 0 0RF insulin aspart U-100 [Novolog FlexPen U-100 Insulin] 100 unit/mL (3 mL) Insulin Pen 0 - 9 units subcut 0800,1200,1700,2200 Qty: 0 0RF metoprolol tartrate 25 mg Tablet 12.5 mg PO QID Qty: 0 0RF zinc sulfate [Zinc-220] 50 mg zinc (220 mg) Capsule 220 mg PO DAILY Qty: 0 0RF HPI General Mode of arrival: wheelchair . Date/Time Provider Initiated Documentation: 01/21/24 14:12 . Limitations to Documentation: no limitations . Information obtained by: patient . History of Present Illness 73 year old M presents to the emergency department with the chief complaint of n/v, cough, shaky, described as moderate, Patient started experiencing this hour(s) (1) and it has been constant. No relieving factors improve symptom(s), No exacerbating factors reported . Patient notes denies chest pain and shortness of breath. Patient did receive the following treatments prior to arrival, none Related Data Home Medications Medication Instructions Recorded Confirmed metformin 1,000 mg tablet 1,000 mg PO BID 11/22/21 04/15/22 acetaminophen 500 mg tablet 500 mg PO Q6H PRN fever #90 tabs 11/26/21 04/15/22 oxycodone-acetaminophen 5 mg-325 1 tab PO Q6H PRN pain, moderate 12/03/21 04/15/22 mg tablet (Percocet) #18 tabs imipenem-cilastatin 500 mg 1,000 mg IVPB Q8H #0 ea 12/12/21 intravenous solution insulin aspart U-100 100 unit/mL 0 - 9 units (0 - 0.09 mL) subcut 12/12/21 (3 mL) subcutaneous pen (Novolog 0800,1200,1700,2200 #0 mL FlexPen U-100 Insulin aspart) metoprolol tartrate 25 mg tablet 12.5 mg (1/2 x 25 mg) PO QID #0 12/12/21 04/15/22 tabs multivitamin (Multiple Vitamins 1 tab PO DAILY #0 tabs 12/12/21 04/15/22 tablet) nutritional supplements 1 oz PO TID #0 ea 12/12/21 04/15/22 (Phlexy-Vits) polyethylene glycol 3350 17 gram 17 g PO DAILY #0 ea 12/12/21 oral powder packet sennosides 8.6 mg-docusate sodium 1 tab PO BID #0 tabs 12/12/21 04/15/22 50 mg tablet (Colace 2-In-1) sodium chloride 0.9 % (flush) (BD 1 ml IVP PRN PRN #0 mL 12/12/21 PosiFlush Normal Saline 0.9 % injection syringe) zinc sulfate 50 mg zinc (220 mg) 220 mg (4.4 x 50 mg zinc (220 mg)) 12/12/21 04/15/22 capsule (Zinc-220) PO DAILY #0 caps Previous Rx's Medication Instructions Recorded acetaminophen 500 mg tablet 500 mg PO Q6H PRN fever #90 tabs 11/26/21 oxycodone-acetaminophen 5 mg-325 1 tab PO Q6H PRN pain, moderate 12/03/21 mg tablet (Percocet) #18 tabs imipenem-cilastatin 500 mg 1,000 mg IVPB Q8H #0 ea 12/12/21 intravenous solution insulin aspart U-100 100 unit/mL 0 - 9 units (0 - 0.09 mL) subcut 12/12/21 (3 mL) subcutaneous pen (Novolog 0800,1200,1700,2200 #0 mL FlexPen U-100 Insulin aspart) metoprolol tartrate 25 mg tablet 12.5 mg (1/2 x 25 mg) PO QID #0 12/12/21 tabs multivitamin (Multiple Vitamins 1 tab PO DAILY #0 tabs 12/12/21 tablet) nutritional supplements 1 oz PO TID #0 ea 12/12/21 (Phlexy-Vits) polyethylene glycol 3350 17 gram 17 g PO DAILY #0 ea 12/12/21 oral powder packet sennosides 8.6 mg-docusate sodium 1 tab PO BID #0 tabs 12/12/21 50 mg tablet (Colace 2-In-1) sodium chloride 0.9 % (flush) (BD 1 ml IVP PRN PRN #0 mL 12/12/21 PosiFlush Normal Saline 0.9 % injection syringe) zinc sulfate 50 mg zinc (220 mg) 220 mg (4.4 x 50 mg zinc (220 mg)) 12/12/21 capsule (Zinc-220) PO DAILY #0 caps Allergies Allergy/AdvReac Type Severity Reaction Status Date / Time melatonin AdvReac Intermediate Itching Unverified 05/03/23 12:46 General Stated Complaint: GenMedical NIA: 2 Review of Systems All systems reviewed & are unremarkable except as noted in HPI and below Constitutional Constitutional: Denies fever(s) and Denies weakness Cardiovascular Cardiovascular: Denies chest pain and Denies dyspnea Respiratory Respiratory: Reports cough and Denies dyspnea Gastrointestinal Gastrointestinal: Denies abdominal pain and Reports nausea Integumentary/Breasts Skin/Breast: Denies rash Neurologic Neurologic: Denies weakness Exam Const Orientation: alert HENAR Head: normal to inspection Ears: external ears normal General nose exam: external nose normal Mouth: moist mucous membranes Eyes General: appearance normal, both eyes and all related structures Neck Neck: normal visual inspection Resp Effort & Inspection: normal respiratory effort and able to speak in complete sentences Cardio Rate: regular rate GI Palpation: soft and nontender Skin General skin exam: no rashes or lesions noted and no erythema Neuro General: patient alert and patient oriented x3 Extrem General: normal to inspection Psych Mental Status: mental status grossly normal Course Vital Signs Vital signs: Vital Signs Temperature 36.8 C 01/21/24 14:08 Pulse 123 H 01/21/24 14:08 Respiratory Rate 22 01/21/24 14:08 Blood Pressure 205/94 H 01/21/24 14:08 Pulse Oximetry 88 L 01/21/24 14:08 Temperature 36.8 C 01/21/24 14:08 Temperature Source Tympanic 01/21/24 14:08 Pulse 123 H 01/21/24 14:08 Respiratory Rate 22 01/21/24 14:08 Blood Pressure 205/94 H 01/21/24 14:08 Pulse Oximetry 88 L 01/21/24 14:08 Oxygen Delivery Method Room Air 01/21/24 14:08 Oxygen Flow Rate 0 01/21/24 14:08 Pain Level 0 01/21/24 14:08 Lab/Test Results Lab/Test Results: 01/21/24 14:14 Blood Blood Culture - Pending 01/21/24 14:14 Blood Blood Culture - Pending Medical Decision Making 73-year-old male with a history of A-fib, diabetes, who had multiple surgeries on his right ankle and is currently receiving daptomycin through the infusion room who and has followed up with Ortho at [facility] recently and feel his ankle has improved significantly per the last note, comes in with acute onset of chills and rigors. He states he felt well, went to the infusion room had his infusion without incident and then while waiting for his ride started having rigors. He also started developing nausea vomiting and dry persistent cough. Denies any headaches, neck stiffness, difficulty breathing, severe abdominal pain, denies any pain in his right ankle. His right ankle does not have any marianela thema or warmth. Given the acute onset of rigors concern for sepsis, will obtain CBC, CMP, lactate, procalcitonin, inflammatory markers obtain x-rays of the right ankle and also a chest x-ray. Will wait for results will give a dose of Zosyn as well. Labs show leukopenia, lactate is 7 though did have tourniquet on for quite some time while labs are being obtained, procalcitonin reassuring. BP currently 146/59 he is on 2 L nasal cannula as his room air sat was 88%. He has been persistently coughing while here, x-ray shows atelectasis versus pneumonia, suspect pneumonia given his cough, given his age, elevated lactate, will admit for IV antibiotics and continued monitoring. Spoke with Dr. Corral the hospitalist that is on and agrees with admission, will hold on vancomycin until MRSA swab is back. Differential Diagnosis Differential Diagnosis: Sepsis, pneumonia, COVID Medical Records Medical records reviewed: Yes I reviewed the patient's medical records. Imaging Data Radiologic Study: Attestation: I personally reviewed and interpreted this imaging study as follows: Imaging: X-Ray Radiologist's impression: No acute fracture or dislocation on ankle x-ray Radiologic Study #2: Attestation: I personally reviewed and interpreted this imaging study as follows: Imaging: X-Ray Radiologist's impression: IMPRESSION: 1. Low lung volumes. 2. Bilateral basilar opacities. This may represent atelectasis or pneumonia. Lab Data Lab results reviewed: Yes I reviewed the patient's lab results. Quality:SDOH Health Related Social Needs: No Data to Display PFSH All Active Problems (Updated 01/21/24 @ 16:21 by Mikhail Garrison MD) Pneumonia (Acute) Sepsis (Acute) Atrial fibrillation (Acute) Septic arthritis of ankle and foot region (Acute) DVT prophylaxis (Acute) Sepsis (Acute) Cellulitis of right ankle (Acute) Complication of external fixation device with internal components (Acute) Generalized weakness (Acute) Medical History Fall at home History of COVID-19 Hx of diabetes mellitus Surgical History Hx of eye surgery right eye trauma; blindness at present Hx of knee surgery left Hx of shoulder surgery left Social History Smoking/Tobacco Use Status: Never Smoking risk assessment performed?: Yes Alcohol Intake: never Drug use: Never Substance use type: does not use Housing: house Do you feel safe at home: Yes Do you feel safe in your relationship?: Yes
[2024-01-21 14:35] LABS: Abs Immature Grans 0.03 10^3/uL (0.0-0.06); Absolute Basophil Count 0.03 10^3/uL (0.0-0.2); Absolute Eosinophil Count 0.04 10^3/uL (0.0-0.7); Absolute Lymphocyte Count 1.21 10^3/uL (1.2-3.4); Absolute Monocyte Count 0.07 10^3/uL (0.1-0.8); Absolute Neutrophil Count 1.61 10^3/uL (1.2-6.7); Eosinophils % 1.3; HCT 41.9 % (40.0-50.0); HGB 13.6 g/dL (13.5-17.5); Lymphocytes % 40.5; MCH 31.8 pg (27.0-33.0); MCHC 32.5 % (32.0-36.0); MCV 98 fL (80-95); MPV 9.6 fL (8.0-11.0); Monocytes % 2.3; Neutrophils % 53.9; Platelet Count 149 10^3/uL (130-400); RBC 4.28 10^6/uL (4.36-5.78); RDW 14.3 % (11.8-14.1); RDW-SD 51.7 fL; WBC 2.99 10^3/uL (4.4-10.8)
[2024-01-21 14:41] LABS: Lactate 7.1 mmol/L (0.6-1.4)
[2024-01-21] MEDS: Normal Saline 1,000 ML 1000 ML IV ×2 (14:42→17:07)
[2024-01-21] MEDS: PIPERACILLIN/TAZO 4.5 GM in Normal Saline 100 ML IVPB ×2 (14:43→22:46)
[2024-01-21] MEDS: Droperidol 5 MG/2 ML VIAL 2.5 MG IVP (14:49)
[2024-01-21 15:02] LABS: INR 1.1 (0.9-1.1); PTT Activated 24.4 sec (23.6-32.8); Prothrombin Time 11.4 sec (9.1-11.1)
[2024-01-21 15:08] LABS: ALT 32 U/L (16-63); AST 39 U/L (15-37); Albumin 3.4 g/dL (3.4-5.0); Alkaline Phosphatase 122 U/L (46-116); Anion Gap 14.3 mmol/L (3-11); BUN 17 mg/dL (7-18); Bilirubin, Total 1.1 mg/dL (0.2-1.0); C-Reactive Protein 1.91 mg/dL (<or=0.5); CO2 22.7 mmol/L (21.0-32.0); CREATININE 1.1 mg/dL (0.70-1.30); Calcium 9.2 mg/dL (8.5-10.1); Chloride 105 mmol/L (98-107); Estimated GFR 71.32 (mL/min/1.73m2); Glucose 227 mg/dL (74-106); Magnesium 1.9 mg/dL (1.8-2.4); Potassium 4.2 mmol/L (3.5-5.1); Sodium 142 mmol/L (136-145); TSH (W/Ref FT4) 3.66 uIU/mL (0.36-3.74); Total Protein 8.4 g/dL (6.4-8.2)
[2024-01-21 15:16] LABS: COVID-19 PCR Negative (Negative); Influenza A PCR Negative (Negative); Influenza B PCR Negative (Negative); RSV PCR Negative (Negative)
[2024-01-21 15:18] LABS: Source Nasopharynx
[2024-01-21 15:29] LABS: Procalcitonin 0.2 ng/mL
[2024-01-21 16:19] LABS: Bilirubin Negative (Negative); Blood Trace-intact (Negative); Clarity Clear (Clear); Glucose >=1000 mg/dL (Negative); Ketones Negative (Negative); Leukocyte Esterase Negative (Negative); Nitrite Negative (Negative); Urobilinogen 0.2 mg/dL (Up to 0.2)
[2024-01-21 16:34] LABS: Bacteria Negative HPF (Negative); C & S Indicated? No; Casts Negative LPF (Negative); Crystals Negative HPF (Negative); Epithelial Cells Rare HPF (Negative); Mucus Trace (Negative); Other Cells Rare Transitional (Negative); RBC 0-2 HPF (0-2); WBC 0-2 HPF (0-5)
--- NOTE | 2024-01-21 17:08 | HPE_ITS ---
Date of service: 01/21/24 Time of Service: 17:08 Assessment and Plan Assessment and plan (1) Septic shock: Status: Acute Assessment and plan: Patient meets septic shock criteria due CAP with lactate at 7.1 in addition to fever,shivers, hypoxia ,nausea w/o hypotension Patient on outpatient daptomycin hygiene and sulfamethoxazole trimethoprim oral for right ankle osteomyelitis. Blood cultures MRSA nares, Vancomycin pending results Zosyn telemetry Oxygen supplementation IS and acapella PRN nebs (2) Pneumonia: Status: Acute Assessment and plan: As above (3) Atrial fibrillation: Status: Acute Assessment and plan: On telemetry (4) Cellulitis of right ankle: Status: Acute Assessment and plan: Osteomyelitis w OPT treatment with Daptomycin-will be on Vancomycin if MRSA nares is positive (5) Generalized weakness: Status: Acute Assessment and plan: Pt consult (6) On deep vein thrombosis (DVT) prophylaxis: Status: Acute Assessment and plan: On lovenox SC (7) Discharge planning issues: Status: Acute Assessment and plan: CM to f/u discussed with Dr. Corral History of Present Illness History of Present Illness Chief Complaint: Septic Shock Narrative: This 74-year-old male patient with a past medical history of atrial fibrillation, diabetes, with multiple surgery on his right ankle currently receiving daptomycin outpatient for osteomyelitis with noted improvement as per Ortho at [facility] presented to the ED secondary to today for evaluation of sudden onset of chills and rigors. The patient stated feeling well during outpatient infusion and then started to have rigors while waiting for his ride home. The patient reported new onset of nausea , vomiting, dry persistent cough. The patient denied headaches, neck stiffness, difficulty breathing, severe abdominal pain, chest pain or right ankle pain. Ankle did not appear to be erythematous or warm as per ED note provider. X-ray in the ED was remarkable for bilateral lower lobe opacities. The patient had no leukocytosis, procalcitonin was 0.2. The patient was treated with piperacillin/tazobactam 4.5 g IV. Treatment with vancomycin is pending MRSA screening.. The hospitalist was called and the patient was admitted to [facility] with telemetry for evaluation and management of septic shock due to community- acquired pneumonia. When seen in the emergency room the patient wanted to get his phone to get someone to take care of his dogs at home. The patient remained cooperative during the exam. The patient denied pain, dizziness, nausea or vomiting or abdominal pain. Review of Systems Constitutional Constitutional: Reports system reviewed and no additional complaints, except as documented and Denies headache(s) ENT Ears, Nose, Mouth, and Throat: Denies headache(s) Cardiovascular Cardiovascular: Denies chest pain, Denies chest pain with activity, Denies syncope and Denies dyspnea Respiratory Respiratory: Denies chest congestion, Denies pain on inspiration and Denies dyspnea Gastrointestinal Gastrointestinal: Denies abdominal pain and Denies nausea Neurologic Neurologic: Denies syncope and Denies headache(s) PFSH All Active Problems (Updated 01/21/24 @ 17:17 by Caitlin Johnston APRN) Discharge planning issues (Acute) On deep vein thrombosis (DVT) prophylaxis (Acute) Septic shock (Acute) Pneumonia (Acute) Sepsis (Acute) Atrial fibrillation (Acute) Septic arthritis of ankle and foot region (Acute) DVT prophylaxis (Acute) Sepsis (Acute) Cellulitis of right ankle (Acute) Complication of external fixation device with internal components (Acute) Generalized weakness (Acute) Medical History Fall at home History of COVID-19 Hx of diabetes mellitus Surgical History Hx of eye surgery right eye trauma; blindness at present Hx of knee surgery left Hx of shoulder surgery left Social History Smoking/Tobacco Use Status: Never Smoking risk assessment performed?: Yes Alcohol Intake: never Drug use: Never Substance use type: does not use Housing: house Do you feel safe at home: Yes Do you feel safe in your relationship?: Yes Meds Allergies and Home Medications Allergies Allergy/AdvReac Type Severity Reaction Status Date / Time melatonin AdvReac Intermediate Itching Unverified 05/03/23 12:46 Home Medications Medication Instructions Recorded Confirmed Type metformin 1,000 mg tablet 1,000 mg PO BID 11/22/21 01/21/24 History acetaminophen 500 mg tablet 500 mg PO Q6H PRN fever #90 tabs 11/26/21 01/21/24 Rx oxycodone-acetaminophen 5 mg-325 1 tab PO Q6H PRN pain, moderate 12/03/21 01/21/24 Rx mg tablet (Percocet) #18 tabs imipenem-cilastatin 500 mg 1,000 mg IVPB Q8H #0 ea 12/12/21 01/21/24 Rx intravenous solution insulin aspart U-100 100 unit/mL 0 - 9 units subcut 12/12/21 01/21/24 Rx (3 mL) subcutaneous pen (Novolog 0800,1200,1700,2200 #0 mL FlexPen U-100 Insulin aspart) metoprolol tartrate 25 mg tablet 12.5 mg (1/2 x 25 mg) PO QID #0 12/12/21 01/21/24 Rx tabs multivitamin (Multiple Vitamins 1 tab PO DAILY #0 tabs 12/12/21 04/15/22 Rx tablet) nutritional supplements 1 oz PO TID #0 ea 12/12/21 04/15/22 Rx (Phlexy-Vits) sodium chloride 0.9 % (flush) (BD 1 ml IVP PRN PRN #0 mL 12/12/21 Rx PosiFlush Normal Saline 0.9 % injection syringe) zinc sulfate 50 mg zinc (220 mg) 220 mg (4.4 x 50 mg zinc (220 mg)) 12/12/21 04/15/22 Rx capsule (Zinc-220) PO DAILY #0 caps furosemide 20 mg tablet 20 mg PO DAILY 01/21/24 01/21/24 History glipizide 10 mg tablet, extended 20 mg PO BID 01/21/24 01/21/24 History release 24 hr polyethylene glycol 3350 17 gram 17 g PO DAILY PRN constipation 01/21/24 01/21/24 History oral powder packet sennosides 8.6 mg-docusate sodium 1 tab PO BID PRN constipation 01/21/24 01/21/24 History 50 mg tablet (Colace 2-In-1) sulfamethoxazole 800 1 tab PO BID 01/21/24 01/21/24 History mg-trimethoprim 160 mg tablet Exam Narrative Exam Narrative: Constitutional The patient on lateral decubitus, restless but alert and oriented X3 HENMT: Facial structures with normal appearance Eyes: Well aligned Neck: Normal ROM, no meningeal signs Neuro:alert and oriented to self, person, place, time . No neurological focal deficit Resp: Normal respiratory pattern, speaks in full sentences, unlabored breathing, decreased lung base R> L, clear upper lungs bilaterally Cardio: regular rhythm, S1, S2, no murmur, positive pulses to all 4 extremities GI: Abdomen is not distended, soft and non tender, bowel sounds are present : Negative Costovertebral angle tenderness Back/spine/Pelvis: No back tenderness, normal alignment Integumentary: No skin lesions or rash Extremities: strength 5/5 to bilateral lower and upper extremities Psych: RASS 0, congruent mood and normal affect. Results Labs 01/21/24 14:24 01/21/24 14:24 Labs: Laboratory Results - last 24 hr 01/21/24 01/21/24 01/21/24 14:24 14:27 16:12 WBC 2.99 L RBC 4.28 L Hgb 13.6 Hct 41.9 MCV 98 H MCH 31.8 MCHC 32.5 RDW 14.3 H Plt Count 149 MPV 9.6 Immature Gran % 1.0 Neutrophils % 53.9 Lymphocytes % 40.5 Monocytes % 2.3 Eosinophils % 1.3 Basophils % 1.0 Nucleated RBC % 0.0 Absolute Neutrophils 1.61 Absolute Lymphocytes 1.21 Absolute Monocytes 0.07 L Absolute Eosinophils 0.04 Absolute Basophils 0.03 PT 11.4 H INR 1.1 APTT 24.4 VBG Lactate 7.1 H* Sodium 142 Potassium 4.2 Chloride 105 Carbon Dioxide 22.7 Anion Gap 14.3 H BUN 17 Creatinine 1.1 Est GFR (CKD-EPI 2020) 71.32 Glucose 227 H Calcium 9.2 Magnesium 1.9 Total Bilirubin 1.1 H AST 39 H ALT 32 Alkaline Phosphatase 122 H C-Reactive Protein 1.91 H Total Protein 8.4 H Albumin 3.4 Procalcitonin 0.2 TSH 3.66 Urine Color Yellow Urine Clarity Clear Urine pH 6.0 Ur Specific [place] 1.020 Urine Protein Trace Urine Ketones Negative Urine Blood Trace-intact H Urine Nitrite Negative Urine Bilirubin Negative Urine Urobilinogen 0.2 Ur Leukocyte Esterase Negative Urine RBC 0-2 Urine WBC 0-2 Ur Epithelial Cells Rare Urine Crystals Negative Urine Bacteria Negative Urine Casts Negative Urine Mucus Trace Urine Other Rare Transitional Ur Culture Indicated? No Urine Glucose >=1000 H COVID-19 Source Nasopharynx SARS-CoV-2 (PCR) Negative Influenza Type A (PCR) Negative Influenza Type B (PCR) Negative RSV (PCR) Negative Last Vital Signs Temp 38.7 C H 01/21/24 15:57 Pulse 94 H 01/21/24 16:17 Resp 21 01/21/24 16:17 BP 146/59 H 01/21/24 16:17 Pulse Ox 88 L 01/21/24 15:35 Time Spent Time spent with Patient: >75 minutes Time was spent: preparing to see the patient(eg.review tests), obtaining and/or reviewing separately otained hiistory, ordering medications,tests, procedures, referring, communicating with other health child care counselor, indepentently interpreting results, counseling the patient and care coordination
--- NOTE | 2024-01-21 17:14 | TELEP.MEDR_ITS ---
Date of service: 01/21/24 Time of Service: 17:14 [facility] Allergies Allergies: melatonin Adverse Reaction (Intermediate, Unverified 05/03/23 12:46) Itching Interview Person Interviewed: [facility] pharmacy in [place] [phone] Quality Quality of Interview/Accuracy of Medication List: Good Sources Sources used to compile medication list: [employer] Medication List and Retail Pharmacy Changes made to Home Medication List: ADDITIONS: * Furosemide 20mg daily * Glipizide ER 20mg BID * Metformin 1g BID * Bactrim DS 1 tab BID (filled 12/15 for 30 day supply, unclear if pt still taking) DELETIONS: * imipenem-cilastatin * Novolog (no fill history at pharmacy) * metoprolol (no fill history at pharmacy) * Percocet (old prescription, oxycodone 5mg filled 12/15 for 4 day supply) CHANGES: * miralax: changed to PRN * senna-docusate: changed to PRN Additional Notes Additional Notes: Patient was unable to contribute to his med rec. I called his [facility] pharmacy in [place] who confirmed the medications that have recently been filled and have active prescriptions on file. Unable to confirm if patient is taking nutritional supplement, multivitamin, or zinc from home list. Recommended Changes Attestation: The home medication list is now updated to the best of my knowledge and is ready to be reconciled by the provider. [facility] at for any questions.
--- NOTE | 2024-01-21 17:14 | TELEP.MEDREC ---
Date of service: 01/21/24 Time of Service: 17:14 [facility] Allergies Allergies: melatonin Adverse Reaction (Intermediate, Unverified 05/03/23 12:46) Itching Interview Person Interviewed: [facility] pharmacy in [place] [phone] Quality Quality of Interview/Accuracy of Medication List: Good Sources Sources used to compile medication list: [facility] Medication List and Retail Pharmacy Changes made to Home Medication List: ADDITIONS: Furosemide 20mg daily Glipizide ER 20mg BID Metformin 1g BID Bactrim DS 1 tab BID (filled 12/15 for 30 day supply, unclear if pt still taking) DELETIONS: imipenem-cilastatin Novolog (no fill history at pharmacy) metoprolol (no fill history at pharmacy) Percocet (old prescription, oxycodone 5mg filled 12/15 for 4 day supply) CHANGES: miralax: changed to PRN senna-docusate: changed to PRN Additional Notes Additional Notes: Patient was unable to contribute to his med rec. I called his [facility] pharmacy in [place] who confirmed the medications that have recently been filled and have active prescriptions on file. Unable to confirm if patient is taking nutritional supplement, multivitamin, or zinc from home list. Recommended Changes Attestation: The home medication list is now updated to the best of my knowledge and is ready to be reconciled by the provider. [facility] at for any questions.
[2024-01-21 17:51] LABS: MRSA PCR Negative (Negative)
[2024-01-21] MEDS: Metoprolol 12.5 MG TAB PO (21:16)
[2024-01-21] MEDS: Sennosides/Docusate Sodium TAB 1 TAB PO (21:16)
[2024-01-21] MEDS: Acetaminophen 500 MG TAB PO (21:16)
[2024-01-21 22:18] LABS: Lactate 1.9 mmol/L (0.6-1.4)
[2024-01-21 23:35] LABS: MRSA PCR Negative (Negative)
[2024-01-22] VITALS (8 sets, daily range): BP systolic 93–126; BP diastolic 45–72; PULSE 58–75; RESP 16–18; TEMP 35.8–37.2; O2SAT 94–98
[2024-01-22] MEDS: PIPERACILLIN/TAZO 4.5 GM in Normal Saline 100 ML IVPB ×4 (02:27→21:36)
--- NOTE | 2024-01-22 06:00 | W.PM.PROGNOT ---
Date of Service Date of service: 01/22/24 Time of Service: 06:00 Assessment and Plan Assessment and plan (1) Septic shock: Status: Acute Assessment and plan: Patient meets septic shock criteria due CAP with lactate at 7.1 in addition to fever,shivers, hypoxia ,nausea w/o hypotension Patient on outpatient daptomycin hygiene and sulfamethoxazole trimethoprim oral for right ankle osteomyelitis. Blood cultures MRSA nares negative ,GNR in Blood C&S Repeated blood cultures and results pending continue Zosyn telemetry Oxygen supplementation IS and acapella PRN nebs (2) Pneumonia: Status: Acute Assessment and plan: As above (3) Atrial fibrillation: Status: Acute Assessment and plan: On telemetry, in a SR to 1 AVB HR 75 Continue metoprolol with parameters (4) Cellulitis of right ankle: Status: Acute Assessment and plan: Osteomyelitis w OPT treatment with Daptomycin-will be on Vancomycin if MRSA nares is positive (5) Generalized weakness: Status: Acute Assessment and plan: Pt consult in progress Recommendations:D/C recommendations: OP PT for continued rehab of R foot and general body strengthening (6) On deep vein thrombosis (DVT) prophylaxis: Status: Acute Assessment and plan: Continue lovenox SC (7) Discharge planning issues: Status: Acute Assessment and plan: CM to f/u if new needs arises. Home 48 hours after IV antibiotic treatment initiated AND negative blood cultures on oral antibiotics, will continue Dapto OPT infusion Discussed with Dr. Corral Subjective Subjective Patient reports: feels better, tolerating liquids well, tolerating a regular diet, voiding w/o difficulty and bowel movement; denies diarrhea, nausea, vomiting, shortness of breath or fever Exam Narrative Exam Narrative: Constitutional The patient in bed , pleasant w/o acute distress HENMT: Facial structures with normal appearance Eyes: Well aligned, blind right eye Neuro:alert and oriented to self, person, place, time . No neurological focal deficit Resp: Normal respiratory pattern, speaks in full sentences, , decreased lung bases otherwise clear lungs bilaterally Cardio: regular rhythm, S1, S2, no murmur, positive pulses to all 4 extremities : Negative Costovertebral angle tenderness Back/spine/Pelvis: No back tenderness, normal alignment Integumentary: No rash, right ankle with mepilex , wound with minimal serous drainage, ankle is discolored seems chronic Extremities: strength 5/5 to bilateral lower and upper extremities Psych: RASS 0, congruent mood and normal affect. Objective Last Vital Signs Temp 36.2 C L 01/22/24 02:34 Pulse 58 L 01/22/24 02:34 Resp 16 01/22/24 02:34 BP 121/72 01/22/24 02:34 Pulse Ox 95 01/22/24 02:34 Laboratory Results - last 24 hr 01/21/24 01/21/24 01/21/24 14:24 14:27 16:12 WBC 2.99 L RBC 4.28 L Hgb 13.6 Hct 41.9 MCV 98 H MCH 31.8 MCHC 32.5 RDW 14.3 H Plt Count 149 MPV 9.6 Immature Gran % 1.0 Neutrophils % 53.9 Lymphocytes % 40.5 Monocytes % 2.3 Eosinophils % 1.3 Basophils % 1.0 Nucleated RBC % 0.0 Absolute Neutrophils 1.61 Absolute Lymphocytes 1.21 Absolute Monocytes 0.07 L Absolute Eosinophils 0.04 Absolute Basophils 0.03 PT 11.4 H INR 1.1 APTT 24.4 VBG Lactate 7.1 H* Sodium 142 Potassium 4.2 Chloride 105 Carbon Dioxide 22.7 Anion Gap 14.3 H BUN 17 Creatinine 1.1 Est GFR (CKD-EPI 2020) 71.32 Glucose 227 H Calcium 9.2 Magnesium 1.9 Total Bilirubin 1.1 H AST 39 H ALT 32 Alkaline Phosphatase 122 H C-Reactive Protein 1.91 H Total Protein 8.4 H Albumin 3.4 Procalcitonin 0.2 TSH 3.66 Urine Color Yellow Urine Clarity Clear Urine pH 6.0 Ur Specific [place] 1.020 Urine Protein Trace Urine Ketones Negative Urine Blood Trace-intact H Urine Nitrite Negative Urine Bilirubin Negative Urine Urobilinogen 0.2 Ur Leukocyte Esterase Negative Urine RBC 0-2 Urine WBC 0-2 Ur Epithelial Cells Rare Urine Crystals Negative Urine Bacteria Negative Urine Casts Negative Urine Mucus Trace Urine Other Rare Transitional Ur Culture Indicated? No Urine Glucose >=1000 H COVID-19 Source Nasopharynx SARS-CoV-2 (PCR) Negative Influenza Type A (PCR) Negative Influenza Type B (PCR) Negative RSV (PCR) Negative MRSA (TEM-PCR) 01/21/24 01/21/24 16:33 22:15 WBC RBC Hgb Hct MCV MCH MCHC RDW Plt Count MPV Immature Gran % Neutrophils % Lymphocytes % Monocytes % Eosinophils % Basophils % Nucleated RBC % Absolute Neutrophils Absolute Lymphocytes Absolute Monocytes Absolute Eosinophils Absolute Basophils PT INR APTT VBG Lactate 1.9 H Sodium Potassium Chloride Carbon Dioxide Anion Gap BUN Creatinine Est GFR (CKD-EPI 2020) Glucose Calcium Magnesium Total Bilirubin AST ALT Alkaline Phosphatase C-Reactive Protein Total Protein Albumin Procalcitonin TSH Urine Color Urine Clarity Urine pH Ur Specific [place] Urine Protein Urine Ketones Urine Blood Urine Nitrite Urine Bilirubin Urine Urobilinogen Ur Leukocyte Esterase Urine RBC Urine WBC Ur Epithelial Cells Urine Crystals Urine Bacteria Urine Casts Urine Mucus Urine Other Ur Culture Indicated? Urine Glucose COVID-19 Source SARS-CoV-2 (PCR) Influenza Type A (PCR) Influenza Type B (PCR) RSV (PCR) MRSA (TEM-PCR) Negative Negative Time Spent with Patient Time Spent with Patient: >50 minutes Time was spent: preparing to see the patient(eg.review tests), obtaining and/or reviewing separately otained hiistory, ordering medications,tests, procedures, referring, communicating with other health career professional, indepentently interpreting results, counseling the patient and care coordination
[2024-01-22 06:52] LABS: Abs Immature Grans 0.03 10^3/uL (0.0-0.06); Absolute Basophil Count 0.03 10^3/uL (0.0-0.2); Absolute Eosinophil Count 0.13 10^3/uL (0.0-0.7); Absolute Lymphocyte Count 1.49 10^3/uL (1.2-3.4); Absolute Monocyte Count 0.63 10^3/uL (0.1-0.8); Absolute Neutrophil Count 2.84 10^3/uL (1.2-6.7); Basophils % 0.6; Eosinophils % 2.5; HCT 37.5 % (40.0-50.0); HGB 12.5 g/dL (13.5-17.5); Immature Grans % 0.6; Lymphocytes % 28.9; MCH 31.9 pg (27.0-33.0); MCHC 33.3 % (32.0-36.0); MCV 96 fL (80-95); MPV 9.7 fL (8.0-11.0); Monocytes % 12.2; Neutrophils % 55.2; Platelet Count 122 10^3/uL (130-400); RBC 3.92 10^6/uL (4.36-5.78); RDW 14.2 % (11.8-14.1); RDW-SD 49.7 fL; WBC 5.15 10^3/uL (4.4-10.8)
[2024-01-22 07:08] LABS: Anion Gap 9.2 mmol/L (3-11); BUN 15 mg/dL (7-18); CO2 23.8 mmol/L (21.0-32.0); CREATININE 0.9 mg/dL (0.70-1.30); Calcium 8.3 mg/dL (8.5-10.1); Chloride 109 mmol/L (98-107); Estimated GFR 90.74 (mL/min/1.73m2); Glucose 181 mg/dL (74-106); Potassium 3.8 mmol/L (3.5-5.1); Sodium 142 mmol/L (136-145)
[2024-01-22] MEDS: metFORMIN 500 MG TAB 1000 MG PO ×2 (08:07→16:31)
[2024-01-22] MEDS: Multivitamin TAB 1 TAB PO (08:07)
[2024-01-22] MEDS: Sennosides/Docusate Sodium TAB 1 TAB PO ×2 (08:07→21:27)
[2024-01-22] MEDS: Protein Nutritional Supplement 16 GM 1 OUNCE PACKET PO ×3 (08:28→21:27)
--- NOTE | 2024-01-22 08:36 | PDOC.CMIN ---
Date of service: 01/22/24 Time of Service: 08:37 Care Management Initial Assmt Initial Assessment REASON FOR HOSPITALIZATION:: Septic shock PFSH All Active Problems (Updated 01/21/24 @ 18:39 by HARSHIL MOURA) Discharge planning issues (Acute) On deep vein thrombosis (DVT) prophylaxis (Acute) Septic shock (Acute) Pneumonia (Acute) Sepsis (Acute) Atrial fibrillation (Acute) Septic arthritis of ankle and foot region (Acute) DVT prophylaxis (Acute) Sepsis (Acute) Cellulitis of right ankle (Acute) Complication of external fixation device with internal components (Acute) Generalized weakness (Acute) Medical History Fall at home History of COVID-19 Hx of diabetes mellitus Surgical History Hx of eye surgery right eye trauma; blindness at present Hx of knee surgery left Hx of shoulder surgery left Social History Smoking/Tobacco Use Status: Never Smoking risk assessment performed?: Yes Alcohol Intake: never Drug use: Never Substance use type: does not use Housing: house Do you feel safe at home: Yes Do you feel safe in your relationship?: Yes SDOH(Care Management) Screening Will the Patient Participate in the Screening?: Yes Do you worry about having a steady place to live?: no In the past 12 months, have you had to go without electric, gas, oil or water in your home?: no Have you or anyone in your house had to go without enough food to eat?: no Has lack of transportation kept you from medical appointments or from doing things needed for daily living?: no Has anyone in your support network made you feel unsafe for any reason?: no
--- NOTE | 2024-01-22 08:55 | PDOC.CMIN ---
Date of service: 01/22/24 Time of Service: 08:55 Care Management Initial Assmt Initial Assessment REASON FOR HOSPITALIZATION:: Septic Shock PREVIOUS FUNCTIONAL STATUS/SOCIAL/FAMILY SUPPORTS:: Vikas is and lives alone in [facility]. His son Emil lives nearby and is supportive. His ex- and daughter are supportive but they recently moved out of state. Vikas worked at [employer] for 18 years and is now retired. He is independent with his ADL's at baseline. He no longer drives and uses [facility] for transportation. He uses a cane, but unfortunately he lost it a week ago. CURRENT FUNCTIONAL STATUS:: Vikas was laying in bed when CM met with him. He is awake and easily engages in conversation. Vikas denies having any community or economic needs at this time, but shared that sometimes he struggles filling out his insurance paperwork. CM discussed [facility] services and gave provided him with contact information and a brochure. ADVANCE DIRECTIVES:: None, he is not interested at this time. Has patient been provided with info about the portal/API?: Yes Did the patient sign up for the portal?: No CODE STATUS:: Full Code INSURANCE COVERAGE / FINANCIAL ISSUES:: AARP Supplemental Medicare CURRENT HOME/COMMUNITY SERVICES/EQUIPMENT:: Lost his cane last week RCT transportation PRIMARY CARE PHYSICIAN:: Andre Aguilar DO ([place], [place]). POTENTIAL DISCHARGE NEEDS:: Discharge plan of care, follow up appointments PATIENT/FAMILY EDUCATION NEEDS:: Review discharge instructions, including limitations, medications, and follow-up plan of care; discuss Ask Me Three and self management needs. ANTICIPATED BARRIERS TO DISCHARGE:: None anticipated at this time TRANSPORTATION:: [facility] private vehicle PLAN:: PT consult requested. Vikas lost his cane last week. Anticipate Vikas will discharge home when medically ready. New Services will be ordered, if indicated. Transportation will be provided by [facility] private vehicle. CM will continue to support Vikas and any discharge planning needs. PFSH All Active Problems (Updated 01/21/24 @ 18:39 by HARSHIL MOURA) Discharge planning issues (Acute) On deep vein thrombosis (DVT) prophylaxis (Acute) Septic shock (Acute) Pneumonia (Acute) Sepsis (Acute) Atrial fibrillation (Acute) Septic arthritis of ankle and foot region (Acute) DVT prophylaxis (Acute) Sepsis (Acute) Cellulitis of right ankle (Acute) Complication of external fixation device with internal components (Acute) Generalized weakness (Acute) Medical History Fall at home History of COVID-19 Hx of diabetes mellitus Surgical History Hx of eye surgery right eye trauma; blindness at present Hx of knee surgery left Hx of shoulder surgery left Social History Smoking/Tobacco Use Status: Never Smoking risk assessment performed?: Yes Alcohol Intake: never Drug use: Never Substance use type: does not use Housing: house Do you feel safe at home: Yes Do you feel safe in your relationship?: Yes SDOH(Care Management) Screening Will the Patient Participate in the Screening?: Yes Do you worry about having a steady place to live?: no In the past 12 months, have you had to go without electric, gas, oil or water in your home?: no Have you or anyone in your house had to go without enough food to eat?: no Has lack of transportation kept you from medical appointments or from doing things needed for daily living?: no Has anyone in your support network made you feel unsafe for any reason?: no
[2024-01-22] MEDS: Metoprolol 12.5 MG TAB PO ×2 (11:51→21:27)
[2024-01-22] MEDS: Insulin Aspart 300 UNITS/3 ML PEN SC ×2 (12:08→17:14)
--- NOTE | 2024-01-22 12:09 | W.NUTRFU ---
Date of service: 01/22/24 Time of Service: 12:10 Nutrition Note NOTE: 73yo male admitted for sepsis, PNA with a history of DMII, hypoglycemia and cellulitis of r ankle with osteomyelitis. Current BMI of 32 indicates obesity. last A1C documented was 8.3 in Nov. Albumin WNL with high total protein lab. FBG this monring was 181. Ordered for liquid protein TID to supple 45g protein per day. 3kg wt loss noted since april of 2023 but appears relatively stable recently. Ordered for glucose fingersticks before meals with sensitive insulin aspart protocol. Takes glipizde ER at home along with insulin aspart at meals and 2200, 1g metformin BID. HH carb consistent diet order while admitted. Pt with low food budget at home - receives meals on wheels which he doesn't like and states he does not qualify for SNAP benefits. He kids and says his dog does all the cooking at home - seems very attached to his dog after interactiving with him. He does not count carbohydrates and just tries to watch what he eats with what he can afford. We reviewed hypoglycemia sx and 15/15 treatment routine. Declines further education at this time but did take my card to call and make outpt appt if he desires to get some detailed help with menu creating. REcommend repeat A1C lab to better assess his recent glycemic history Will follow pt for opportunities to present education - he said he might be intetested in sample menus. will arrange these for him. Time Spent in Nutritional Counseling and Treatment: 20 minutes
--- NOTE | 2024-01-22 14:40 | PT.INIE ---
PT Notes Visit Reasons: Septic Shock Physical Therapy Inpatient Initial Evaluation Date: 01/22/2024 Referring Doctor: Caitlin Johnston NP PT Orders: PT CONSULT: Eval for assistve device Precautions: Fall. Standard. Activity as tolerated. Fracture boot on the R LE, orthopedic shoe on the L LE when OOB. Patient Profile/Admitting Diagnosis: Vikas is a 73-year-old male patient who presented to the ED on 01/21/2024 due to nausea, vomiting, cough, with gait instability. Patient was admitted for management of septic shock, pneumonia, AF, tendinitis of right ankle, and generalized weakness. Patient recently [place] [facility] and was recently seen back there for removal of stitches but area continued to be irritated. Wound dressing is placed over lateral dorsum of R foot. PMHX: All Active Problems (Updated 01/21/24 @ 17:17 by Caitlin Johnston, UTILITY MANAGER) Discharge planning issues (Acute) On deep vein thrombosis (DVT) prophylaxis (Acute) Septic shock (Acute) Pneumonia (Acute) Sepsis (Acute) Atrial fibrillation (Acute) Septic arthritis of ankle and foot region (Acute) DVT prophylaxis (Acute) Sepsis (Acute) Cellulitis of right ankle (Acute) Complication of external fixation device with internal components (Acute) Generalized weakness (Acute) Medical History Fall at home History of COVID-19 Hx of diabetes mellitus Surgical History Hx of eye surgery right eye trauma; blindness at present Hx of knee surgery left Hx of shoulder surgery left Social History/Home Situation: Lives alone with his dog in a private home with 4 steps to enter with rails. independent with all aspects of ADLs prior to admission. Occasionally uses a FWW. Equipment Owned/DME: [facility] Subjective: I need a new cane, I lost my other one. Indicated that the area where they at [facility] [place] the last stitch on his foot incision has not healed well. Objective: General Observation: Depression noted on distal medial R leg from previous fracture last November. R leg, ankle, and foot swollen. Dressing on lateral dorsum of R foot. Mental Status: Alert and oriented as to person, place, time, and purpose. Able to pay attention, focus, and respond appropriately. Pain: 2-3/10 on the R ankle ROM: Right Lower Extremity: Hip flexion WFL. Hip abduction WFL. Knee flexion WFL. Ankle dorsiflexion no movement visible due to recent surgery. Ankle plantarflexion no movement visible due to recent surgery patient. Left Lower Extremity: Hip flexion WFL. Hip abduction WFL. Knee flexion WFL. Ankle dorsiflexion WFL. Ankle plantarflexion WFL. Strength: Right Lower Extremity: Hip flexors 4-/5. Hip abductors 4-/5. Knee flexors 5/5. Knee extensors 4/5. Ankle dorsiflexors 1/5. Ankle plantarflexors1 /5. Left Lower Extremity: Hip flexors 4/5. Hip abductors 4/5. Knee flexors 5/5. Knee extensors 4/5. Ankle dorsiflexors 4-/5. Ankle plantarflexors 4-/5. Bed Mobility/Transfers: Rolling independent Supine to sit independent Sit to supine independent Sit to stand supervision with FWW. Required cues to use B hands for support for safety. Stand to sit supervision with FWW. Required cues to reach behind for the arm rests for safety. Bed to toilet seat supervision with FWW Toilet seat to seat supervision with FWW Gait: Facilitated upright posture as well as safe walker management using fracture boot on the R and orthopedic shoe on the L, covered a distance of 250 feet with FWW. Balance: Static Sitting: Normal Dynamic Sitting: Normal Static Standing: Good Dynamic Standing: Fair Special Tests: Mobility Limitations Standardized Measure [facility] AM-PAC 6 clicks Basic Mobility Inpatient Short Form: Raw Score: 23 CMS Score: 11% deficit 4-Stage Balance Test: Feet together 10 seconds Semi-tandem <10 seconds Full tandem <10 seconds One-legged stance <10 seconds Informed Consent/Education: Patient was instructed in purpose of PT consult and plan of care. Agreeable to proceed with established PT POC to achieve personal goals. ASSESSMENT: Patient performed ambulation more steadily using the front-wheeled walker. Will assess safety of walking using the SPC tomorow morning. Emphasized use of fracture boot on R and orthopedic shoe on L to even out hips to prevent abnormla muscle pulls. Minimal shortness of breath with Modified Calvin Dyspnea scale at 3/10 (moderate level). Patient presents with clinical signs and symptoms consistent with current/admitting diagnoses that have resulted to mobility limitations, gait instability, generalized weakness, and overall ADL decline as demonstrated by the following impairment level findings: 1. Decreased strength to R knee and ankle major muscle groups 2. Impaired sitting/standing balance 3. Impaired activity tolerance 4. Limitation of joint range of motion in R ankle 5. Shortness of breath 6. Swelling in R leg and foot Impairments are contributing to the following functional limitations: 1. Difficulty with ambulation without assistive device 2. Increased completion time for mobility ADL performance 3. Increased risk for falls 4. Difficulty with managing steps alone safely Patient is assessed as a 54169 moderate complexity based on the following: History: 73-year-old female with past medical history as indicated above Examination: Demonstrable impairment in strength, balance, and mobility level with underlying impairments and functional limitations as exhibited above as well as deficit score of 11% utilizing the [facility] Mobility Inpatient Short Form Presentation: Evolving Decision Makin moderate complexity Goals: Goals X1 week 1. Supine-Sit independent 2. Sit-Supine independent 3. Sit-Stand independent 4. Stand-Sit independent with SPC 5. Bed-Chair independent with SPC 6. Chair-Bed independent with SPC 7. Independent gait on level surface with use of SPC for at least 300 feet without report of pain nor dyspnea 8. Independent stair negotiation while holding onto B rails for at least 4 steps without report of pain nor dyspnea 9. Independent with home exercise program 10. Good static and dynamic standing balance/tolerance Plan of Care/Treatment Plan: 1-2x/day, 7 days/week x 1 week. Plan of care has been reviewed with the SDV PILOT/NAVIGATOR/DDS OPERATOR providing the service under Physical Therapy direction. Initiate Physical Therapy intervention for pain management as needed, strengthening, bed mobility, transfers, gait, stairs, balance training, and use of assistive device. -Determine safety of use of SPC tomorrow morning. DISCHARGE RECOMMENDATIONS: [] Home with no services [] [] Home with services [specify] [X] Home with outpatient PT for continued R ankle/foot/knee rehab and general strengthening. [] SNF for continued rehabilitation [] [] Trim Technician Care [] [] SNF versus LTC based on ability to participate and progress [] TREATMENT CODE/TIME: 11334 x 20 minutes for 1 unit, 80569 x 22 minutes for 1 unit (14:40-15:22). Thank you for the opportunity to participate in the care of this patient. Andreia Dunn PT, DPT, CLT [facility] [place], [place]
[2024-01-22] MEDS: LORazepam 0.5 MG TAB PO ×2 (16:31→21:27)
[2024-01-22] MEDS: Enoxaparin 40 MG/0.4 ML SYR SC (21:27)
[2024-01-22] MEDS: Acetaminophen 500 MG TAB PO (21:27)
[2024-01-23] VITALS (7 sets, daily range): BP systolic 110–142; BP diastolic 60–81; PULSE 62–73; RESP 16–20; TEMP 36–36.8; O2SAT 94–98
[2024-01-23] MEDS: PIPERACILLIN/TAZO 4.5 GM in Normal Saline 100 ML IVPB ×4 (02:26→20:39)
[2024-01-23 07:14] LABS: Abs Immature Grans 0.01 10^3/uL (0.0-0.06); Absolute Basophil Count 0.03 10^3/uL (0.0-0.2); Absolute Eosinophil Count 0.32 10^3/uL (0.0-0.7); Absolute Lymphocyte Count 2.11 10^3/uL (1.2-3.4); Absolute Monocyte Count 0.84 10^3/uL (0.1-0.8); Absolute Neutrophil Count 1.53 10^3/uL (1.2-6.7); Basophils % 0.6; Eosinophils % 6.6; HGB 12.4 g/dL (13.5-17.5); Immature Grans % 0.2; Lymphocytes % 43.6; MCH 31.8 pg (27.0-33.0); MCHC 33.5 % (32.0-36.0); MCV 95 fL (80-95); Monocytes % 17.4; Neutrophils % 31.6; Platelet Count 144 10^3/uL (130-400); RDW 14.2 % (11.8-14.1); RDW-SD 49.4 fL; WBC 4.84 10^3/uL (4.4-10.8)
[2024-01-23 07:21] LABS: Anion Gap 10.4 mmol/L (3-11); BUN 14 mg/dL (7-18); CO2 24.6 mmol/L (21.0-32.0); CREATININE 0.9 mg/dL (0.70-1.30); Calcium 8.4 mg/dL (8.5-10.1); Chloride 108 mmol/L (98-107); Estimated GFR 90.74 (mL/min/1.73m2); Glucose 113 mg/dL (74-106); Potassium 3.8 mmol/L (3.5-5.1); Sodium 143 mmol/L (136-145)
[2024-01-23] MEDS: Multivitamin TAB 1 TAB PO (07:38)
[2024-01-23] MEDS: metFORMIN 500 MG TAB 1000 MG PO ×2 (07:38→16:41)
[2024-01-23] MEDS: Metoprolol 12.5 MG TAB PO ×2 (07:39→11:59)
[2024-01-23] MEDS: Normal Saline Flush 10 ML SYR IVP (07:39)
[2024-01-23] MEDS: Zinc Sulfate 220 MG TAB PO (07:39)
[2024-01-23] MEDS: Protein Nutritional Supplement 16 GM 1 OUNCE PACKET PO ×3 (07:40→20:39)
[2024-01-23] MEDS: Acetaminophen 500 MG TAB PO (07:49)
[2024-01-23] MEDS: Lactobacillus Acidophilus CAP 1 CAP PO (07:49)
[2024-01-23] MEDS: Insulin Aspart 300 UNITS/3 ML PEN SC ×2 (12:00→17:08)
--- NOTE | 2024-01-23 12:14 | CMPROGNOTE_ITS ---
Date of service: 01/23/24 Time of Service: 12:14 Care Management Progress Note Progress Note Text Progress Note Text: S/O:Vikas was sitting up in bed when CM met with him. He was polite and agreeable to conversation. Vikas informed CM that he has [facility] for several weeks. He is scheduled to complete his AB course on 01/28/24 if all goes well. He has been told that he may be able to go home tomorrow on oral antibiotics for his current pneumonia. He stated that he feels well and would just like to be able to go home. He will require [facility] for transportation coordinated by CM. A: Vikas is a 73 year old man admitted on 01/21/24 with septic shock P:Anticipate Vikas will discharge home when medically ready. He will not likely require any additional services. Transportation will be provided by [facility] private vehicle, coordinated by CM. CM will continue to support Vikas and any discharge planning needs. SDOH(Care Management) Screening Will the Patient Participate in the Screening?: Yes Do you worry about having a steady place to live?: no In the past 12 months, have you had to go without electric, gas, oil or water in your home?: no Have you or anyone in your house had to go without enough food to eat?: no Has lack of transportation kept you from medical appointments or from doing things needed for daily living?: no Has anyone in your support network made you feel unsafe for any reason?: no
--- NOTE | 2024-01-23 14:06 | PTTR_ITS ---
PT Notes Visit Reasons: Septic Shock Inpatient Physical Therapy Treatment Note [facility] Date: 01/23/24 SUBJECTIVE: Vikas states that he would like to go home. He is feeling better and feels he can handle it. He did report some mild fatigue in B LE post am walk. I want to get better so I will push it. OBJECTIVE: []? PAIN: none VITALS: ?monitored by [facility] Therapeutic Activities ([id number]): Direct one-on-one instruction in dynamic activities to improve functional performance. ? BED MOBILITY/TRANSFERS? Supine-sit: I? Sit-supine: I ? Sit-stand: I ? Stand-sit: I ? Bed-Chair: I? Chair-bed: I GAIT? Assistive Device: SPC? Weight bearing: full. walking boot right and shoe on left Assist: SBA? Distance:? approx 700+' in am with one sitting rest for approx [address]. ?approx 250' x3 in pm. sitting rest in room btwn each lap for approx 2-3 min. Deviation: shortened strides.? STAIRS: in both am and pm: ascend/descend 2, 6 steps and 3, 4 steps x3 using SPC and one hand rail. SBA. ?pt toileted in both am and pm. Required very min assist with adult brief due to small amount of incontinence of BM. ? ASSESSMENT:? quite independent with all functional mobility. Able to don his walking boot and shoe independently. Showed safe ambulation with SPC requiring only SBA. No noted LOB or SOB. He was able to unilateral stance while putting his clean adult brief on with support of one UE. PLAN: will continue to work on his functional mobility as per PT POC. TREATMENT CODE/TIME: 25 min in am, 25 min pm. [id number] in am, [id number] in pm.
--- NOTE | 2024-01-23 14:41 | W.PM.PROGNOT ---
Date of Service Date of service: 01/23/24 Time of Service: 14:41 Assessment and Plan Assessment and plan (1) Septic shock: Status: Acute Assessment and plan: Patient meets septic shock criteria due CAP with lactate at 7.1 in addition to fever,shivers, hypoxia ,nausea w/o hypotension Patient on outpatient daptomycin hygiene and sulfamethoxazole trimethoprim oral for right ankle osteomyelitis. Blood cultures MRSA nares negative ,GNR in Blood C&S Repeated blood cultures and results pending continue Zosyn telemetry Oxygen supplementation IS and acapella PRN nebs (2) Pneumonia: Status: Acute Assessment and plan: As above (3) Atrial fibrillation: Status: Acute Assessment and plan: On telemetry, in a SR to 1 AVB HR 75 Continue metoprolol with parameters (4) Cellulitis of right ankle: Status: Acute Assessment and plan: Osteomyelitis w OPT treatment with Daptomycin-will be on Vancomycin if MRSA nares is positive (5) Generalized weakness: Status: Acute Assessment and plan: Pt consult in progress Recommendations:D/C recommendations: OP PT for continued rehab of R foot and general body strengthening (6) On deep vein thrombosis (DVT) prophylaxis: Status: Acute Assessment and plan: Continue lovenox SC (7) Discharge planning issues: Status: Acute Assessment and plan: CM to f/u if new needs arises. Home 48 hours after IV antibiotic treatment initiated AND negative blood cultures on oral antibiotics, will continue Dapto OPT infusion Discussed with Dr. Corral Subjective Subjective Patient reports: no new complaints, feels better, tolerating liquids well, tolerating a regular diet and afebrile (max temp 37.8); denies shortness of breath Exam Const Orientation: alert HENPA Head: normal to inspection Mouth: moist mucous membranes Eyes General: dysmorphic (right eye) Neck Neck: normal visual inspection Resp Effort & Inspection: normal respiratory effort and able to speak in complete sentences Cardio Rate: regular rate GI Palpation: soft and nontender Skin General skin exam: no rashes or lesions noted and no erythema Neuro General: patient alert and patient oriented x3 Extrem General: normal to inspection Psych Mental Status: mental status grossly normal Objective Last Vital Signs Temp 36.6 C 01/23/24 11:43 Pulse 73 01/23/24 11:43 Resp 20 01/23/24 11:43 BP 142/81 H 01/23/24 11:43 Pulse Ox 98 04/05/24 11:43 Laboratory Results - last 24 hr 01/23/24 06:48 WBC 4.84 RBC 3.90 L Hgb 12.4 L Hct 37.0 L MCV 95 MCH 31.8 MCHC 33.5 RDW 14.2 H Plt Count 144 MPV 10.0 Immature Gran % 0.2 Neutrophils % 31.6 Lymphocytes % 43.6 Monocytes % 17.4 Eosinophils % 6.6 Basophils % 0.6 Nucleated RBC % 0.0 Absolute Neutrophils 1.53 Absolute Lymphocytes 2.11 Absolute Monocytes 0.84 H Absolute Eosinophils 0.32 Absolute Basophils 0.03 Sodium 143 Potassium 3.8 Chloride 108 H Carbon Dioxide 24.6 Anion Gap 10.4 BUN 14 Creatinine 0.9 Est GFR (CKD-EPI 2020) 90.74 Glucose 113 H Calcium 8.4 L Time Spent with Patient Time Spent with Patient: 25-34 minutes Time was spent: preparing to see the patient(eg.review tests), obtaining and/or reviewing separately otained hiistory, ordering medications,tests, procedures, indepentently interpreting results and counseling the patient
[2024-01-24] MEDS: PIPERACILLIN/TAZO 4.5 GM in Normal Saline 100 ML IVPB ×2 (03:02→07:30)
[2024-01-24] MEDS: Protein Nutritional Supplement 16 GM 1 OUNCE PACKET PO ×2 (07:29→13:57)
[2024-01-24] MEDS: Normal Saline Flush 10 ML SYR IVP ×2 (07:30→12:39)
[2024-01-24] MEDS: Lactobacillus Acidophilus CAP 1 CAP PO (07:31)
[2024-01-24] MEDS: Multivitamin TAB 1 TAB PO (07:32)
[2024-01-24] MEDS: metFORMIN 500 MG TAB 1000 MG PO (07:32)
[2024-01-24] MEDS: Zinc Sulfate 220 MG TAB PO (07:32)
[2024-01-24] MEDS: Metoprolol 12.5 MG TAB PO ×3 (07:34→15:45)
[2024-01-24] MEDS: Acetaminophen 500 MG TAB PO ×2 (07:47→12:40)
[2024-01-24 07:51] VITALS: BP 148/91; PULSE 68; RESP 18; TEMP 36.3; O2SAT 94
[2024-01-24 10:55] LABS: Lab Add On Test DONE
[2024-01-24 11:04] LABS: C-Reactive Protein 3.22 mg/dL (<or=0.5)
--- NOTE | 2024-01-24 11:08 | PT.INNT ---
PT Notes Visit Reasons: Septic Shock Pt ref x 2 today due to a head ache and not feeling well.
[2024-01-24] MEDS: Insulin Aspart 300 UNITS/3 ML PEN SC (11:55)
--- NOTE | 2024-01-24 12:19 | DSE_ITS ---
Date of service: 01/24/24 Time of Service: 12:19 DS: Diagnosis Discharge Diagnosis (1) Septic shock: Status: Acute (2) Pneumonia: Status: Acute (3) Atrial fibrillation: Status: Acute (4) Cellulitis of right ankle: Status: Acute (5) Generalized weakness: Status: Acute Discharge Plan Disposition Patient Disposition: Home Condition: Stable Discharge Details Reason For Visit: Septic Shock Admit Date/Time: 01/21/24 16:53 Admit Provider: Omega Corral Attending Provider: Omega Corral Primary Care Provider: Andre Aguilar Hospital Course Hospital Course: This is a 73-year-old male patient complex medical history including and not limited to, atrial fibrillation, diabetes, with multiple surgery on his right ankle currently receiving daptomycin outpatient for osteomyelitis followed by [facility] ID who developed a sudden onset of chills and rigors after a scheduled outpatient infusion while waiting for his ride home. He was referred to the emergency department where workup consistent with septic shock. He was placed on vancomycin and Zosyn and admitted to the hospitalist services for further management. His lactate of 7.1 improved to 1.9 after IV resuscitation. Blood cultures positive for Klebsiella ocytoca and Enterobacter cloacae complex for which he was positive for in the previous blood culture. Steven th sensitive to the Zosyn he has been receiving. His vancomycin has been discontinued and he was receiving Zosyn and daptomycin. He remained hemodynamically stable with no further fevers. His C-reactive protein did trend upwards starting at 1.9 on date of admission to 3.2 on January 22. His white count remained normal. MRSA PCR of the nares was negative. Repeat blood cultures on January 21 have been negative to date. His case was discussed with ID at [facility] as he is wishing for discharge to home. He will continue outpatient daptomycin infusion as arranged. We have added levofloxacin 750 mg daily based on cultures and after discussion with ID provider. His QTc is 0.46. He is being discharged to home with outpatient infusion and will return tomorrow for his scheduled appointment. He was advised to return sooner for new or worsening symptoms. Discharge discussed with Dr. Corral Home Meds and New Rx's Prescriptions: New daptomycin 500 mg Recon Soln 750 mg IVPB Q24H Qty: 0 0RF Lactobacillus acidophilus 500 million cell Capsule 1 cell PO DAILY Qty: 0 0RF levofloxacin 750 mg tablet 750 mg PO DAILY Qty: 28 0RF Continued acetaminophen 500 mg tablet 500 mg PO Q6H PRN (Reason: fever) Qty: 90 0RF metformin 1,000 mg Tablet 1,000 mg PO BID multivitamin [Multiple Vitamins] Tablet 1 tab PO DAILY Qty: 0 0RF Patient Comments: unknown if pt taking Phlexy-Vits Powder In Packet 1 oz PO TID Qty: 0 0RF Patient Comments: unknown if pt taking sodium chloride 0.9 % (flush) [BD PosiFlush Normal Saline 0.9] Syringe 1 ml IVP PRN PRNQty: 0 0RF Patient Comments: unknown if pt taking metoprolol tartrate 25 mg Tablet 12.5 mg PO QID Qty: 0 0RF furosemide 20 mg tablet 20 mg PO DAILY polyethylene glycol 3350 17 gram Powder In Packet 17 g PO DAILY PRN (Reason: constipation) sennosides-docusate sodium [Colace 2-In-1] 8.6-50 mg Tablet 1 tab PO BID PRN (Reason: constipation) Held glipizide 10 mg tablet extended release 24hr 20 mg PO BID Hold Instructions: not receiving in the hospital, discuss with outpatient team Discontinued imipenem-cilastatin 500 mg Recon Soln 1,000 mg IVPB Q8H Qty: 0 0RF sulfamethoxazole-trimethoprim 800-160 mg tablet 1 tab PO BID Patient Comments: filled 12/15 for 30 days, unclear if still taking No Action oxycodone-acetaminophen [Percocet] 5-325 mg tablet 1 tab PO Q6H MDD 4 tabs PRN (Reason: pain, moderate) Qty: 18 0RF Rx Instructions: Take with Food, no driving or operating heavy machinery. insulin aspart U-100 [Novolog FlexPen U-100 Insulin] 100 unit/mL (3 mL) Insulin Pen 0 - 9 units subcut 0800,1200,1700,2200 Qty: 0 0RF zinc sulfate [Zinc-220] 50 mg zinc (220 mg) Capsule 220 mg PO DAILY Qty: 0 0RF Patient Comments: unknown if pt taking Discharge Instructions Instructions: Bacteremia (DC) Additional Instructions: Continue outpatient daily daptomycin infusion as previously arranged [facility] ID will continue to oversee your antibiotics outpatient in addition to your lab monitoring. Take all your medications as prescribed Your prescription for your new antibiotic has been sent to [facility] pharmacy in [place] at your request. This is to be taken daily you did receive a dose prior to discharge so this should start tomorrow January 24 please check with ID to see when this antibiotic should be discontinued or completed. Referrals: Andre Aguilar [Primary Care Provider] - Activity:: Activity as Tolerated Equipment/Supplies:: No Equipment Needed Diet:: As Tolerated Discharge Orders Discharge Orders: Discharge Order (Routine); Ordered 01/24/24 Ordered By: Debora Joe DS: Summary Time Spent with Patient providing and/or coordinating discharge services: Greater than 30 minutes Status at Discharge Functional status at discharge: independent ambulation Overall status at discharge: patient is progressing back to baseline Mental Status: mental status grossly normal Speech and Movement: speech and movement normal Mood: congruent mood Affect: normal affect Quality:SDOH Health Related Social Needs: No Data to Display Exam Const Orientation: alert, awake and oriented x3 HENMT Head: normal to inspection Mouth: moist mucous membranes Eyes General: dysmorphic (right eye) Neck Neck: normal visual inspection Resp Effort & Inspection: normal respiratory effort and able to speak in complete sentences Cardio Rate: regular rate GI Palpation: soft and nontender Skin General skin exam: no rashes or lesions noted and no erythema Neuro General: patient alert and patient oriented x3 Extrem General: normal to inspection Psych Mental Status: mental status grossly normal Speech and Movement: speech and movement normal Mood: congruent mood Affect: normal affect DS: Data Vitals/I&O Vitals and I&O: Vital Signs Temperature 36.3 C L 01/24/24 07:51 Temperature Source Tympanic 01/24/24 07:51 Pulse 68 01/24/24 07:51 Pulse Rhythm Regular 01/24/24 10:42 Pulse 83 01/21/24 17:46 Respiratory Rate 18 01/24/24 07:51 Respiratory Effort Normal, Non-Labored 01/24/24 10:42 Respiratory Depth Normal 01/24/24 10:42 Respiratory Pattern Normal 01/24/24 10:42 Blood Pressure 148/91 H 01/24/24 07:51 Blood Pressure Mean 79 01/21/24 17:46 Pulse Oximetry 94 01/24/24 07:51 Oxygen Delivery Method Room Air 01/24/24 07:51 Oxygen Flow Rate 0 01/24/24 07:51 Pain Level 3 01/24/24 07:51 Intake & Output 01/23/24 01/24/24 01/24/24 23:59 11:59 23:59 Intake Total 840 / 1320 300 / 300 Output Total 200 / 950 Balance 640 / 370 300 / 300 Intake: IV 150 / 450 300 / 300 Oral 690 / 870 Output: Urine 200 / 950 Other: Urine Color Yellow Yellow Urine Appearance Clear Clear Urine Odor Normal Stool Size Large Stool Characteristics Liquid Brown Voiding Methods Urinal Toilet Data Completed and Pending Labs on day of discharge: Labs from last 24 hours 01/24/24 01/23/24 Unknown 06:48 C-Reactive Protein 3.22 H Add-On Test Request DONE Preliminary micro results at discharge 01/22/24 12:39 Blood Culture - Preliminary Blood NO GROWTH 24 HOURS 01/22/24 12:32 Blood Culture - Preliminary Blood NO GROWTH 24 HOURS PFSH All Active Problems (Updated 01/21/24 @ 18:39 by HARSHIL MOURA) Discharge planning issues (Acute) On deep vein thrombosis (DVT) prophylaxis (Acute) Septic shock (Acute) Pneumonia (Acute) Sepsis (Acute) Atrial fibrillation (Acute) Septic arthritis of ankle and foot region (Acute) DVT prophylaxis (Acute) Sepsis (Acute) Cellulitis of right ankle (Acute) Complication of external fixation device with internal components (Acute) Generalized weakness (Acute) Medical History Fall at home History of COVID-19 Hx of diabetes mellitus Surgical History Hx of eye surgery right eye trauma; blindness at present Hx of knee surgery left Hx of shoulder surgery left Social History Smoking/Tobacco Use Status: Never Smoking risk assessment performed?: Yes Alcohol Intake: never Drug use: Never Substance use type: does not use Housing: house Do you feel safe at home: Yes Do you feel safe in your relationship?: Yes Time Spent with Patient Time Spent with Patient: 45-69 minutes Time was spent: preparing to see the patient(eg.review tests), obtaining and/or reviewing separately [facility] hiistory, ordering medications,tests, procedures, referring, communicating with other health child care, indepentently interpreting results, counseling the patient and care coordination
[2024-01-24] MEDS: Ketorolac 15 MG/ML VIAL IVP (12:40)
[2024-01-24] MEDS: Normal Saline 500 ML IV (13:56)
[2024-01-24] MEDS: levoFLOXacin 500 MG, levoFLOXacin 250 MG 750 MG PO (13:57)
--- NOTE | 2024-01-24 16:53 | PDOC.CMDIS ---
Date of service: 01/24/24 Time of Service: 16:53 LACE Index Scoring Tool Questions: Length of Stay (in days): 3 Was the patient admitted via the E.D.?: Yes Comorbidities: Diabetes w/o Complication E.D. Visits: 1 Answers: Total Score: 8 Risk of Readmission: Low Risk Care Management Discharge Plan Reason for Hospitalization: Septic Shock Discharge Plan: Vikas will discharge home with no new services. Transportation will be provided by [facility] private vehicle, coordinated by CM. Vikas will follow up with his PCP and plan of care. He will continue to come to the Infusion Room for IV antibiotics until his course has been completed. That may be as soon as 01/28/24. Patient/Family Education Needs: Review discharge instructions, including limitations, medications, and follow-up plan of care; discuss Ask Me Three and self management. Services Needed at Discharge: Transportation SDKS Health Related Social Needs: No Data to Display
== END 2024-01-24 15:49 | disposition home or self-care (01) | DRG 871 ==
LOC: ER 16:32 → MS 18:38
PROVIDERS: Nurse Practitioner Acute Care; Admitting Provider Family Medicine; Emergency Provider Emergency Medicine; PCP Family Medicine; Visit Provider Family Medicine
DX: A41.59 Other Gram-negative sepsis (principal); J18.9 Pneumonia, unspecified organism; R65.21 Severe sepsis with septic shock; L03.115 Cellulitis of right lower limb; M86.8X7 Other osteomyelitis, ankle and foot; E11.69 Type 2 diabetes mellitus with other specified complication; I48.91 Unspecified atrial fibrillation; R53.1 Weakness; Z79.899 Other long term (current) drug therapy; Z79.84 Long term (current) use of oral hypoglycemic drugs; Z79.4 Long term (current) use of insulin
CPT/HCPCS: 00123; 36415; 80048; 80053; 84145; 87040; 87077; 87637; 87641; 96361; 96365; 96375; 97162; 97530; 99285; J1650; 71046; 73610; 81003; 81015; 83605; 83735; 84443; 85025; 85610; 85730; 86140; 87186; 99223; 99232; 99233; 99238; J0878; J1790; J1815; J1885; J2543; J3490

== ENCOUNTER 2024-01-29 13:00 | Outpatient (RCR) | payer MEDICARE, SELFPAY ==
[2024-01-19 00:22] VITALS: BP 129/72; PULSE 96; RESP 16; TEMP 36.8
[2024-01-19 11:49] LABS: Abs Immature Grans 0.01 10^3/uL (0.0-0.06); Absolute Basophil Count 0.02 10^3/uL (0.0-0.2); Absolute Eosinophil Count 0.21 10^3/uL (0.0-0.7); Absolute Lymphocyte Count 1.69 10^3/uL (1.2-3.4); Absolute Monocyte Count 0.54 10^3/uL (0.1-0.8); Absolute Neutrophil Count 1.75 10^3/uL (1.2-6.7); Basophils % 0.5; HCT 37.7 % (40.0-50.0); HGB 12.4 g/dL (13.5-17.5); Immature Grans % 0.2; MCH 31.9 pg (27.0-33.0); MCHC 32.9 % (32.0-36.0); MCV 97 fL (80-95); MPV 9.7 fL (8.0-11.0); Monocytes % 12.8; Neutrophils % 41.5; Platelet Count 162 10^3/uL (130-400); RBC 3.89 10^6/uL (4.36-5.78); RDW 14.1 % (11.8-14.1); RDW-SD 49.8 fL; WBC 4.22 10^3/uL (4.4-10.8)
[2024-01-19 12:04] LABS: ALT 31 U/L (16-63); AST 32 U/L (15-37); Alkaline Phosphatase 121 U/L (46-116); Anion Gap 10.1 mmol/L (3-11); BUN 17 mg/dL (7-18); Bilirubin, Total 0.6 mg/dL (0.2-1.0); C-Reactive Protein < 0.50 mg/dL (<or=0.5); CO2 25.9 mmol/L (21.0-32.0); CREATININE 0.9 mg/dL (0.70-1.30); Calcium 8.7 mg/dL (8.5-10.1); Chloride 105 mmol/L (98-107); Creatine Kinase 78 U/L (39-308); Estimated GFR 90.74 (mL/min/1.73m2); Glucose 362 mg/dL (74-106); Potassium 4.4 mmol/L (3.5-5.1); Sodium 141 mmol/L (136-145); Total Protein 7.5 g/dL (6.4-8.2)
[2024-01-19] MEDS: Normal Saline Flush 10 ML SYR IVP (12:16)
[2024-01-20] MEDS: Normal Saline Flush 10 ML SYR IVP (13:06)
[2024-01-21] MEDS: Normal Saline Flush 10 ML SYR IVP (13:00)
[2024-01-25] MEDS: Normal Saline Flush 10 ML SYR IVP (13:04)
[2024-01-26] MEDS: Normal Saline Flush 10 ML SYR IVP (13:08)
[2024-01-26 13:12] LABS: Abs Immature Grans 0.03 10^3/uL (0.0-0.06); Absolute Basophil Count 0.04 10^3/uL (0.0-0.2); Absolute Eosinophil Count 0.26 10^3/uL (0.0-0.7); Absolute Lymphocyte Count 2.24 10^3/uL (1.2-3.4); Absolute Monocyte Count 0.58 10^3/uL (0.1-0.8); Absolute Neutrophil Count 3.67 10^3/uL (1.2-6.7); Basophils % 0.6; Eosinophils % 3.8; HCT 37.1 % (40.0-50.0); HGB 12.8 g/dL (13.5-17.5); Immature Grans % 0.4; Lymphocytes % 32.8; MCH 32.7 pg (27.0-33.0); MCHC 34.5 % (32.0-36.0); MCV 95 fL (80-95); MPV 9.3 fL (8.0-11.0); Monocytes % 8.5; Neutrophils % 53.9; Platelet Count 168 10^3/uL (130-400); RBC 3.92 10^6/uL (4.36-5.78); RDW 13.9 % (11.8-14.1); RDW-SD 48.4 fL; WBC 6.82 10^3/uL (4.4-10.8)
[2024-01-26 13:28] LABS: ALT 33 U/L (16-63); AST 33 U/L (15-37); Alkaline Phosphatase 102 U/L (46-116); Anion Gap 7.5 mmol/L (3-11); BUN 15 mg/dL (7-18); Bilirubin, Total 0.7 mg/dL (0.2-1.0); C-Reactive Protein 0.98 mg/dL (<or=0.5); CO2 26.5 mmol/L (21.0-32.0); CREATININE 0.9 mg/dL (0.70-1.30); Calcium 8.9 mg/dL (8.5-10.1); Chloride 103 mmol/L (98-107); Creatine Kinase 76 U/L (39-308); Estimated GFR 90.74 (mL/min/1.73m2); Glucose 307 mg/dL (74-106); Potassium 4.5 mmol/L (3.5-5.1); Sodium 137 mmol/L (136-145); Total Protein 7.6 g/dL (6.4-8.2)
[2024-01-27] MEDS: Normal Saline Flush 10 ML SYR IVP (12:32)
[2024-01-28] MEDS: Normal Saline Flush 10 ML SYR IVP (12:13)
[2024-01-29] MEDS: Normal Saline Flush 10 ML SYR IVP (13:45)
[2024-01-29] MEDS: DALBAVANCIN 1,500 MG in DEXTROSE 5%-WATER 325 ML 650 MG IVPB (13:45)
[2024-01-29] MEDS: Bacitracin 1 PACKET (14:20)
== END 2024-02-17 23:59 | disposition home or self-care (01) ==
LOC: INF 13:00
PROVIDERS: PCP Family Medicine; Visit Provider Nurse Practitioner Acute Care
DX: B95.7 Other staphylococcus as the cause of diseases classified elsewhere (principal); M86.9 Osteomyelitis, unspecified; A41.9 Sepsis, unspecified organism
CPT/HCPCS: 36592; 80053; 82550; 96365; 85025; 86140; J0875; J0878